=== PATIENT | male | born 1945 | race Caucasian/White ===

== ENCOUNTER 2017-08-17 16:24 | Inpatient (IN) | payer OTHER ==
[~2017-08-17] VITALS: Ht 160 cm; Wt 57.3 kg
[~2017-08-17 16:24] MED LIST changes: -ASPEC81 PO; -LPT40 PO; -LSX40 PO; -POTA10CA28 PO
[2017-08-17] MEDS ORDERED: OPTIRAY 320 IV PRN ×2 (17:00→17:15)
--- NOTE | 2017-08-17 17:30 | DIAGNOSTIC IMAGING REPORT ---
CHEST ONE VIEW PORTABLE HISTORY: 71 years-old Male EVALUATE RESPIRATORY DISTRESS.DYSPNEA acute respiratory distress COMPARISON: Chest radiograph 05/04/2014 TECHNIQUE: Portable upright AP view of the chest FINDINGS: Cardiac silhouette is mildly enlarged. Pulmonary vascular congestion is noted without overt pulmonary edema. There is no pneumothorax. Consolidative opacity of the left lung base is noted with small left pleural effusion. Linear subsegmental opacities of the left midlung suggest atelectasis. Right lung is generally clear. The bones appear grossly intact. IMPRESSION: 1. Consolidative opacities of the left lung base with small left pleural effusion are suspicious for pneumonia with parapneumonic effusion. The effusion appears mildly loculated. Follow-up recommended. 2. Cardiomegaly and pulmonary vascular congestion without overt pulmonary edema. The above report was generated using voice recognition software. It may contain grammatical, syntax or spelling errors. Electronically signed by: Gerardo Del Rosario M.D. 08/17/2017 5:28 PM Dictated Date/Time: 08/17/2017 5:26 PM
[2017-08-17 17:49] LABS: BUN/CREATININE RATIO 22.2 (10-20); CALCIUM 9.3 mg/dl (8.5-10.1); CREATININE 1.16 mg/dl (0.60-1.40); POTASSIUM 3.2 mmol/L (3.5-5.1)
[2017-08-17 17:55] LABS: HEMATOCRIT 55.7 % (42-52); MEAN CELL VOLUME 106.3 fL (80-100); MEAN CORPUSCULAR HEMOGLOBIN 36.3 pg (25-34); MEAN CORPUSCULAR HGB CONC 34.1 g/dl (32-36); RED BLOOD COUNT 5.24 M/uL (4.7-6.1); WHITE BLOOD COUNT 4.58 K/uL (4.8-10.8)
[2017-08-17 17:57] LABS: ALB/GLOB RATIO 0.7 (0.9-2)
--- NOTE | 2017-08-17 17:57 | DIAGNOSTIC IMAGING REPORT ---
L VENOUS DOPP LOWER EXT UNILAT CLINICAL HISTORY: 71 years-old Male presenting with swelling LLE. TECHNIQUE: Real-time grayscale and color and spectral Doppler ultrasound imaging of the veins of the left lower extremity was performed. Compression and augmentation were also utilized. COMPARISON: None. FINDINGS: Left: Common femoral vein: Patent. Femoral vein: Patent. Greater saphenous vein: Patent. Popliteal vein: Patent. Calf veins: Limited visualization secondary to subcutaneous edema. Other: Subcutaneous edema evidence by dilated lymphatics. Popliteal cyst noted. IMPRESSION: No evidence of deep venous thrombosis. Electronically signed by: Garret Martinez M.D. 08/17/2017 5:56 PM Dictated Date/Time: 08/17/2017 5:55 PM
[2017-08-17 18:05] LABS: MEAN PLATELET VOLUME 11.8 fL (7.4-10.4); PLATELET COUNT 97 K/uL (130-400)
[2017-08-17 18:07] LABS: ANISOCYTOSIS PRESENT; BASO % 0.7 %; BASO ABS # 0.03 K/uL (0-0.2); COMPLETE YES; EOS % 2.2 %; IG% 0.4 %; LYMPH % 15.3 %; MONO % 13.3 %; NEUT % 68.1 %
[2017-08-17 19:30] LABS: URINE APPEARANCE CLEAR (CLEAR); URINE BILIRUBIN NEG (NEG); URINE COLOR DK YELLOW; URINE EPITHELIAL CELL AUTO >30 /lpf (0-5); URINE NITRITE NEG (NEG); URINE SPECIFIC GRAVITY 1.013 (1.000-1.030); UROBILINOGEN POS (NEG)
[2017-08-17 19:35] LABS: MANUAL MICROSCOPIC REQUIRED? NO; REVIEW REQ? YES
--- NOTE | 2017-08-17 19:55 | DIAGNOSTIC IMAGING REPORT ---
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 A dose lowering technique was utilized adhering to the principles of ALARA. COMPARISON STUDY: Pelvis and right hip radiographs 08/17/2017. FINDINGS: Small left and trace right pleural effusion. Subsegmental bibasilar opacities are noted suggesting compressive atelectasis. There is no pneumoperitoneum identified. Imaged cardiac chambers are moderately to severely enlarged. There is diffusely heterogeneous appearance of the liver. The spleen, pancreas and adrenal glands are within normal limits. The gallbladder is partially collapsed. Ill-defined areas of low attenuation within the interpolar right kidney posteriorly measuring up to 6 mm are too small to characterize, however suggest cysts. No renal calculi or hydronephrosis. Ureters are unremarkable. Urinary bladder is partially collapsed. Evaluation of the pelvic structures is limited secondary to streak artifact from right hip arthroplasty. There is fusiform aneurysmal dilation and tortuosity of the abdominal aorta measuring up to 4.0 x 4.4 cm in AP and transverse dimension for a length of 6.6 cm. There is also mild anterolateral dilation of the bilateral common iliac arteries, 2.1 cm on the right and 2.0 cm on the left. No bulky adenopathy identified. Mild degree of intra-abdominal and intrapelvic ascites is noted with diffuse mesenteric edema. Ascites extends through a diaphragmatic defect adjacent to the right pericardium. There is no bowel obstruction identified. The appendix appears normal. Posterior changes are seen within small bowel of the right lower quadrant. Scattered air-fluid levels are present within several loops of nondilated ileum suggesting ileus. Moderate diffuse body wall edema. Several fat filled ventral abdominal wall hernias are noted, largest of which demonstrates diastases of 2.4 cm on image 165 series 3. Body wall edema also noted extending into the mons pubis and upper scrotal region. Bones appear intact. No suspicious lytic or blastic bony lesions identified. IMPRESSION: 1. Diffusely heterogeneous appearance of the liver with small left and trace right pleural effusions, small volume of intra-abdominal and intrapelvic ascites with moderate diffuse body wall edema. Body wall edema extends into the mons pubis region and upper scrotum without evidence of subcutaneous or deep tissue air to suggest fasciitis. 2. Fusiform aneurysmal relation of the infrarenal abdominal aorta, 4.0 x 4.4 cm for a length of 6.6 cm in craniocaudal dimension. Aneurysmal dilation also involves the bilateral common iliac arteries as above. 3. Cardiomegaly. 4. Several fat filled ventral abdominal wall hernias are noted. Electronically signed by: Gerardo Del Rosario M.D. 08/17/2017 7:54 PM Dictated Date/Time: 08/17/2017 7:44 PM
[2017-08-17] MEDS ORDERED: ASPIRIN 81 MG CHEW PO STA (19:57)
[2017-08-17 20:17] LABS: INR 1.3 (0.9-1.1); PARTIAL THROMBOPLASTIN RATIO 1.1; PROTHROMBIN TIME (PATIENT) 13.5 SECONDS (9.0-12.0)
[2017-08-17] MEDS ORDERED: POTASSIUM CHLORIDE 10 MEQ TABCR PO STA (20:19)
[2017-08-17] MEDS ORDERED: MAGNESIUM SULFATE 1 GM IV STA (20:19)
[2017-08-17] MEDS ORDERED: D5W 2 GM IV STA (20:19)
[2017-08-17] MEDS ORDERED: MAGNESIUM HYDROXIDE SUSP 30 ML UDC PO PRN (21:00)
[2017-08-17] MEDS ORDERED: FUROSEMIDE INJ 40 MG in SYRINGE 0 ML IV ONE (21:00)
[2017-08-17] MEDS ORDERED: ACETAMINOPHEN 325 MG TAB PO PRN (21:00)
[2017-08-17] MEDS ORDERED: ALUMINUM/MAGNESIUM/SIMETH (MAALOX MAX) 30 ML UDC PO PRN (21:00)
[2017-08-17] MEDS ORDERED: VANCOMYCIN INJ 1,750 MG in SODIUM CHLORIDE 0.9% 500ML 500 ML IV STA (21:16)
[2017-08-17] MEDS ORDERED: CEFTRIAXONE SOD INJ 1 GM in DEXTROSE 5% ADD-VANTAGE 50ML 50 ML IV STA (21:17)
--- NOTE | 2017-08-17 21:18 | EMERGENCY ROOM VISIT NOTE ---
History Report prepared by Marcio: Brock Hernandez Under the Supervision of: Calin LongO. First contact with patient: 16:36 Chief Complaint: EDEMA TO EXTREMITY Stated Complaint: EDEMA History of Present Illness The patient is a 71 year old male who presents to the Emergency Room with complaints of worsening penile swelling beginning two weeks ago. He was referred to the ED by Dr. Leyva with concerns of gangrene. He typically has swelling to his penis and legs, but states that his current swelling is greatly increased. Pt denies headache, change in vision, fevers, chest pain, abnormal shortness of breath, nausea, vomiting, diarrhea, pain with urination, and melena. He notes that he has a purplish discoloration to his skin due to a medication that he takes. notes that the swelling in the lower extremities is larger. Source of History: patient Onset: Two weeks ago Position: other (penis) Quality: other (swelling) Timing: worsening Associated Symptoms: No fevers, No chest pain, No SOB (abnormal), No vomiting, No diarrhea, No urinary symptoms Review of Systems See HPI for pertinent positives & negatives. A total of 10 systems reviewed and were otherwise negative. Past Medical & Surgical Medical Problems: (1) CHF (congestive heart failure) (2) DJD (degenerative joint disease) of hip Family History No pertinent family history stated. Social History Smoking Status: Current Every Day Smoker Drug Use: none Marital Status: Housing Status: lives with significant other Occupation Status: retired Current/Historical Medications Scheduled Atenolol (Atenolol), 1 TAB PO HS Furosemide (Lasix), 20 MG PO DAILY Home O2 Therapy (Oxygen), 2.5 LITER NA NIGHT Ipratropium Healy (Atrovent 0.02% Soln), 1 DOSE INH PRN Allergies Coded Allergies: NO KNOWN DRUG ALLERGIES (Unverified Allergy, Unknown, NONE, 05/04/14) Physical Exam Vital Signs Date Time Temp Pulse Resp B/P (MAP) Pulse Ox O2 Delivery O2 Flow Rate FiO2 08/17/17 20:56 60 22 123/80 89 Nasal Cannula 2.0 08/17/17 19:45 60 124/83 94 Room Air 08/17/17 18:45 62 20 123/85 92 Nasal Cannula 2.0 08/17/17 17:25 56 08/17/17 17:02 98 Nasal Cannula 3.0 08/17/17 17:02 98 Nasal Cannula 3.0 08/17/17 16:29 36.5 20 101/71 Room Air Physical Exam GENERAL: Ill appearing, no acute distress, nontoxic. Sitting up in bed. EYE EXAM: normal conjunctiva. OROPHARYNX: no exudate, no erythema, lips, buccal mucosa, and tongue normal and mucous membranes are moist NECK: supple, no nuchal rigidity, no adenopathy, non-tender LUNGS: Course bilateral bases. Normal chest wall mechanics. HEART: no murmurs, S1 normal and S2 normal ABDOMEN: abdomen normo-active bowel sounds, no masses, no rebound or guarding. Mild fullness in the lower pelvic region. : Edema of the penis and scrotum. Small ulcer on the right anterior scrotum. No surrounding erythema or induration. BACK: Back is symmetrical on inspection and there is no deformity, no midline tenderness, no CVA tenderness. SKIN: no rashes and no bruising UPPER EXTREMITIES: upper extremities are grossly normal. LOWER EXTREMITIES: Diffuse pitting edema bilaterality tracking up to abdomen, left greater than right. DPs 1/4 bilaterally. NEURO EXAM: Normal sensorium, cranial nerves II-XII grossly intact, normal speech, no gross weakness of arms, no gross weakness of legs. Medical Decision & Procedures ER Provider Diagnostic Interpretation: Radiology results as stated below per my review and the radiologist's interpretation: CHEST ONE VIEW PORTABLE FINDINGS: Cardiac silhouette is mildly enlarged. Pulmonary vascular congestion is noted without overt pulmonary edema. There is no pneumothorax. Consolidative opacity of the left lung base is noted with small left pleural effusion. Linear subsegmental opacities of the left midlung suggest atelectasis. Right lung is generally clear. The bones appear grossly intact. IMPRESSION: 1. Consolidative opacities of the left lung base with small left pleural effusion are suspicious for pneumonia with parapneumonic effusion. The effusion appears mildly loculated. Follow-up recommended. 2. Cardiomegaly and pulmonary vascular congestion without overt pulmonary edema. The above report was generated using voice recognition software. It may contain grammatical, syntax or spelling errors. Electronically signed by: Gerardo Del Rosario M.D. 08/17/2017 5:28 PM L VENOUS DOPP LOWER EXT UNILAT FINDINGS: Left: Common femoral vein: Patent. Femoral vein: Patent. Greater saphenous vein: Patent. Popliteal vein: Patent. Calf veins: Limited visualization secondary to subcutaneous edema. Other: Subcutaneous edema evidence by dilated lymphatics. Popliteal cyst noted. IMPRESSION: No evidence of deep venous thrombosis. Electronically signed by: Garret Martinez M.D. 08/17/2017 5:[address] AND P[address]VIS CT WITH IV CONTRAST FINDINGS: Small left and trace right pleural effusion. Subsegmental bibasilar opacities are noted suggesting compressive atelectasis. There is no pneumoperitoneum identified. Imaged cardiac chambers are moderately to severely enlarged. There is diffusely heterogeneous appearance of the liver. The spleen, pancreas and adrenal glands are within normal limits. The gallbladder is partially collapsed. Ill-defined areas of low attenuation within the interpolar right kidney posteriorly measuring up to 6 mm are too small to characterize, however suggest cysts. No renal calculi or hydronephrosis. Ureters are unremarkable. Urinary bladder is partially collapsed. Evaluation of the pelvic structures is limited secondary to streak artifact from right hip arthroplasty. There is fusiform aneurysmal dilation and tortuosity of the abdominal aorta measuring up to 4.0 x 4.4 cm in AP and transverse dimension for a length of 6.6 cm. There is also mild anterolateral dilation of the bilateral common iliac arteries, 2.1 cm on the right and 2.0 cm on the left. No bulky adenopathy identified. Mild degree of intra-abdominal and intrapelvic ascites is noted with diffuse mesenteric edema. Ascites extends through a diaphragmatic defect adjacent to the right pericardium. There is no bowel obstruction identified. The appendix appears normal. Posterior changes are seen within small bowel of the right lower quadrant. Scattered air-fluid levels are present within several loops of nondilated ileum suggesting ileus. Moderate diffuse body wall edema. Several fat filled ventral abdominal wall hernias are noted, largest of which demonstrates diastases of 2.4 cm on image 165 series 3. Body wall edema also noted extending into the mons pubis and upper scrotal region. Bones appear intact. No suspicious lytic or blastic bony lesions identified. IMPRESSION: 1. Diffusely heterogeneous appearance of the liver with small left and trace right pleural effusions, small volume of intra-abdominal and intrapelvic ascites with moderate diffuse body wall edema. Body wall edema extends into the mons pubis region and upper scrotum without evidence of subcutaneous or deep tissue air to suggest fasciitis. 2. Fusiform aneurysmal relation of the infrarenal abdominal aorta, 4.0 x 4.4 cm for a length of 6.6 cm in craniocaudal dimension. Aneurysmal dilation also involves the bilateral common iliac arteries as above. 3. Cardiomegaly. 4. Several fat filled ventral abdominal wall hernias are noted. Electronically signed by: Gerardo Del Rosario M.D. 08/17/2017 7:54 PM Laboratory Results 08/17/17 17:05 Red Blood Count 5.24, Mean Corpuscular Volume 106.3, Mean Corpuscular Hemoglobin 36.3, Mean Corpuscular Hemoglobin Concent 34.1, Mean Platelet Volume 11.8, Neutrophils (%) (Auto) 68.1, Lymphocytes (%) (Auto) 15.3, Monocytes (%) ( Auto) 13.3, Eosinophils (%) (Auto) 2.2, Basophils (%) (Auto) 0.7, Neutrophils # (Auto) 3.12, Lymphocytes # (Auto) 0.70, Monocytes # (Auto) 0.61, Eosinophils # ( Auto) 0.10, Basophils # (Auto) 0.03 08/17/17 17:05 Test 08/17/17 17:05 08/17/17 19:07 08/17/17 19:55 White Blood Count 4.58 K/uL (4.8-10.8) Red Blood Count 5.24 M/uL (4.7-6.1) Hemoglobin 19.0 g/dL (14.0-18.0) Hematocrit 55.7 % (42-52) Mean Corpuscular Volume 106.3 fL (80-100) Mean Corpuscular Hemoglobin 36.3 pg (25-34) Mean Corpuscular Hemoglobin Concent 34.1 g/dl (32-36) Platelet Count 97 K/uL (130-400) Mean Platelet Volume 11.8 fL (7.4-10.4) Neutrophils (%) (Auto) 68.1 % Lymphocytes (%) (Auto) 15.3 % Monocytes (%) (Auto) 13.3 % Eosinophils (%) (Auto) 2.2 % Basophils (%) (Auto) 0.7 % Neutrophils # (Auto) 3.12 K/uL (1.4-6.5) Lymphocytes # (Auto) 0.70 K/uL (1.2-3.4) Monocytes # (Auto) 0.61 K/uL (0.11-0.59) Eosinophils # (Auto) 0.10 K/uL (0-0.5) Basophils # (Auto) 0.03 K/uL (0-0.2) RDW Standard Deviation 67.2 fL (36.4-46.3) RDW Coefficient of Variation 17.4 % (11.5-14.5) Immature Granulocyte % (Auto) 0.4 % Immature Granulocyte # (Auto) 0.02 K/uL (0.00-0.02) Anisocytosis PRESENT Anion Gap 7.0 mmol/L (3-11) Est Creatinine Clear Calc Drug Dose 45.6 ml/min Estimated GFR () 72.0 Estimated GFR (Non- 62.1 BUN/Creatinine Ratio 22.2 (10-20) Calcium Level 9.3 mg/dl (8.5-10.1) Total Bilirubin 3.6 mg/dl (0.2-1) Aspartate Amino Transf (AST/SGOT) 73 U/L (15-37) Alanine Aminotransferase (ALT/SGPT) 46 U/L (12-78) Alkaline Phosphatase 276 U/L (45-117) Troponin I 0.093 ng/ml (0-0.045) Pro-B-Type Natriuretic Peptide 28391 pg/ml (0-900) Total Protein 7.7 gm/dl (6.4-8.2) Albumin 3.2 gm/dl (3.4-5.0) Globulin 4.5 gm/dl (2.5-4.0) Albumin/Globulin Ratio 0.7 (0.9-2) Chemistry Specimen Hemolysis Urine Color DK YELLOW Urine Appearance CLEAR (CLEAR) Urine pH 6.0 (4.5-7.5) Urine Specific [place] 1.013 (1.000-1.030) Urine Protein 1+ (NEG) Urine Glucose (UA) NEG (NEG) Urine Ketones NEG (NEG) Urine Occult Blood 1+ (NEG) Urine Nitrite NEG (NEG) Urine Bilirubin NEG (NEG) Urine Urobilinogen POS (NEG) Urine Leukocyte Esterase NEG (NEG) Urine WBC (Auto) 1-5 /hpf (0-5) Urine RBC (Auto) 0-4 /hpf (0-4) Urine Hyaline Casts (Auto) 5-10 /lpf (0-5) Urine Epithelial Cells (Auto) >30 /lpf (0-5) Urine Bacteria (Auto) NEG (NEG) Urine Renal Epithelial Cells 0-5 /lpf (0-5) Prothrombin Time 13.5 SECONDS (9.0-12.0) Prothromb Time International Ratio 1.3 (0.9-1.1) Activated Partial Thromboplast Time 28.2 SECONDS (21.0-31.0) Partial Thromboplastin Ratio 1.1 Laboratory results per my review. ECG Indication: other (edema) Rate (beats per minute): 55 Rhythm: sinus bradycardia Findings: RBBB, T-wave inversion (lateral and inferior), other (RAD) Comparison ECG Date: May 04, 2014 Change: T-wave inversions are new. ED Course ED COURSE: Vital signs were reviewed and appeared normal. The patients medical record was reviewed The above diagnostic studies were performed and reviewed. ED treatments and interventions as stated above. 1640: The patient was evaluated in room A4B. A complete history and physical examination was performed. 1956: Ordered Aspirin Chew 324 mg PO. 1954: Upon reevaluation, the patient is resting comfortably. I discussed my findings with the patient and he understands and agrees with the treatment plan. Based on the patients age, coexisting illnesses, exam and lab findings the decision to treat as an inpatient was made. The patient remained stable while under my care. The patient will be evaluated for further management. Medical Decision Differential diagnoses includes but is not limited to pneumonia, bronchitis, COPD/Asthma exacerbation, pneumothorax, pulmonary embolism, congestive heart failure, acute coronary syndrome. 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 On evaluation he has diffuse pitting edema in the lower extremities. Nothing to suggest an infection in his groin. Lungs coarse bilaterally. Chest x-ray supports pulmonary edema. BMP was elevated. Troponin was elevated. New flipped T waves in the septal and anterior and lateral. Updated patient regards to his findings. Recommended admission patient was agreeable. Discussed with internal medicine patient was admitted for CHF with an elevated troponin and EKG changes without new shortness of breath or any chest pain. Medication Reconcilliation Current Medication List: was personally reviewed by me Blood Pressure Screening Patient's blood pressure: Normal blood pressure Blood pressure disposition: Did not require urgent referral Consults Time Called: 1953 Consulting Physician: Dr. Shoaib Bar Returned Call: 1957 I reviewed the patient's case with Dr. Cramer. Jules will evaluate the patient for further management. Impression Primary Impression: CHF (congestive heart failure) Additional Impressions: Acute electrocardiogram changes Elevated troponin Scribe Attestation The scribe's documentation has been prepared under my direction and personally reviewed by me in its entirety. I confirm that the note above accurately reflects all work, treatment, procedures, and medical decision making performed by me. Departure Information Dispostion Being Evaluated By Hospitalist Referrals Ralph Leyva M.D.([facility]) (PCP) Patient Instructions My [facility] Problem Qualifiers Primary Impression: CHF (congestive heart failure) Congestive heart failure type: unspecified congestive heart failure type Congestive heart failure chronicity: unspecified congestive heart failure chronicity Qualified Codes: I50.9 - Heart failure, unspecified
[2017-08-17] MEDS ORDERED: VANCOMYCIN CONSULT ACTIVE PRN (21:30)
[2017-08-17] MEDS ORDERED: FUROSEMIDE 40 MG/4 ML VIAL IV STA (21:30)
--- NOTE | 2017-08-17 21:54 | History and Physical ---
History & Physical Date & Time of Service: Aug 17, 2017 at 21:29 Chief Complaint: EDEMA Primary Care Physician: Ralph Leyva M.D.(ASTER) History of Present Illness Source: patient, family, clinic records, hospital records This is a 71 year old male with a PMH of severe COPD and chronic respiratory failure on 2L of O2, tobacco use disorder, right sided heart failure, cor pulmonale, AAA presents with significant lower extremity swelling as well as scrotal and penile swelling. He states that the swelling started worsening about 2 weeks ago and his scrotum became painful today. Was seen by PCP today in the office - was told to come to the hospital to rule out Raymond's gangrene. States that his only symptom in the past two weeks besides his lower extremity swelling was shortness of breath with exertion. He uses 2L of O2 chronically and still smokes. Denies fevers/chills, denies nausea/vomiting. Past Medical/Surgical History Medical Problems: (1) CHF (congestive heart failure) Status: Chronic (2) DJD (degenerative joint disease) of hip Status: Resolved Social History Smoking Status: Current Every Day Smoker Drug Use: none Marital Status: Occupational Status: retired Multi-Drug Resistant Organisms History of MDRO: No Allergies Coded Allergies: NO KNOWN DRUG ALLERGIES (Unverified Allergy, Unknown, NONE, 05/04/14) Home Medications Scheduled Atenolol (Atenolol), 1 TAB PO HS Furosemide (Lasix), 20 MG PO DAILY Home O2 Therapy (Oxygen), 2.5 LITER NA NIGHT Ipratropium [place] (Atrovent 0.02% Soln), 1 DOSE INH PRN Review of Systems Constitutional: No fever, No chills, No sweats, No weight loss, No weakness, No fatigue Eyes: No worsening of vision ENT: + hearing loss (chronic) Respiratory: + cough, + wheezing, + shortness of breath, + dyspnea on exertion , No sputum, No dyspnea at rest, No hemoptysis Cardiovascular: + edema, No chest pain, No orthopnea, No palpitations Abdomen: No pain, No nausea, No vomiting, No diarrhea, No constipation Musculoskeletal: + swelling, No joint pain, No muscle pain Genitourinary - Male: + lesions (ulcer), No hematuria, No dysuria, No urinary frequency, No urinary urgency, No urinary hesitancy, No urinary retention, No urinary incontinence, No penile discharge, No impotence Neurologic: No memory loss, No paralysis, No weakness, No numbness/tingling, No vertigo, No balance problems Psychiatric: No depression symptoms, No anxiety, No insomnia Endocrine: No fatigue Hematologic / Lymphatic: No abnormal bleeding/bruising Integumentary: No rash Allergic / Immunologic: No environmental allergies, No seasonal allergies Physical Exam Vital Signs Date Time Temp Pulse Resp B/P (MAP) Pulse Ox O2 Delivery O2 Flow Rate FiO2 08/17/17 20:56 60 22 123/80 89 Nasal Cannula 2.0 08/17/17 19:45 60 124/83 94 Room Air 08/17/17 18:45 62 20 123/85 92 Nasal Cannula 2.0 08/17/17 17:25 56 08/17/17 17:02 98 Nasal Cannula 3.0 08/17/17 17:02 98 Nasal Cannula 3.0 08/17/17 16:29 36.5 20 101/71 Room Air General Appearance: no apparent distress Head: normocephalic, atraumatic Eyes: EOMI ENT: + pertinent finding (hard of hearing) Neck: supple Respiratory/Chest: no respiratory distress, no accessory muscle use, + decreased breath sounds, + wheezing (diffuse end expiratory wheezing) Cardiovascular: regular rate, rhythm, no murmur Abdomen/GI: normal bowel sounds, non tender, soft Genitourinary - Male: + pertinent finding (+swelling of the penis and scrotum; ulceration on the scrotum with redness and warm to touch) Extremities/Musculoskelatal: no calf tenderness, normal capillary refill, + swelling (+3 pitting edema b/l LE), + pertinent finding 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, no motor/sensory deficits, alert, normal mood/affect, oriented x 3 Skin: normal color Lymphatic: no adenopathy Diagnostics Laboratory Results Results Past 24 Hours Test 08/17/17 17:05 08/17/17 19:07 08/17/17 19:55 Range/Units White Blood Count 4.58 4.8-10.8 K/uL Red Blood Count 5.24 4.7-6.1 M/uL Hemoglobin 19.0 14.0-18.0 g/dL Hematocrit 55.7 42-52 % Mean Corpuscular Volume 106.3 80-100 fL Mean Corpuscular Hemoglobin 36.3 25-34 pg Mean Corpuscular Hemoglobin Concent 34.1 32-36 g/dl Platelet Count 97 130-400 K/uL Mean Platelet Volume 11.8 7.4-10.4 fL Neutrophils (%) (Auto) 68.1 % Lymphocytes (%) (Auto) 15.3 % Monocytes (%) (Auto) 13.3 % Eosinophils (%) (Auto) 2.2 % Basophils (%) (Auto) 0.7 % Neutrophils # (Auto) 3.12 1.4-6.5 K/uL Lymphocytes # (Auto) 0.70 1.2-3.4 K/uL Monocytes # (Auto) 0.61 0.11-0.59 K/uL Eosinophils # (Auto) 0.10 0-0.5 K/uL Basophils # (Auto) 0.03 0-0.2 K/uL RDW Standard Deviation 67.2 36.4-46.3 fL RDW Coefficient of Variation 17.4 11.5-14.5 % Immature Granulocyte % (Auto) 0.4 % Immature Granulocyte # (Auto) 0.02 0.00-0.02 K/uL Anisocytosis PRESENT Sodium Level 138 136-145 mmol/L Potassium Level 3.2 3.5-5.1 mmol/L Chloride Level 90 98-107 mmol/L Carbon Dioxide Level 40 21-32 mmol/L Anion Gap 7.0 3-11 mmol/L Blood Urea Nitrogen 26 7-18 mg/dl Creatinine 1.16 0.60-1.40 mg/dl Est Creatinine Clear Calc Drug Dose 45.6 ml/min Estimated GFR () 72.0 Estimated GFR (Non- 62.1 BUN/Creatinine Ratio 22.2 10-20 Random Glucose 90 70-99 mg/dl Calcium Level 9.3 8.5-10.1 mg/dl Total Bilirubin 3.6 0.2-1 mg/dl Aspartate Amino Transf (AST/SGOT) 73 15-37 U/L Alanine Aminotransferase (ALT/SGPT) 46 12-78 U/L Alkaline Phosphatase 276 45-117 U/L Troponin I 0.093 0-0.045 ng/ml Pro-B-Type Natriuretic Peptide 58129 0-900 pg/ml Total Protein 7.7 6.4-8.2 gm/dl Albumin 3.2 3.4-5.0 gm/dl Globulin 4.5 2.5-4.0 gm/dl Albumin/Globulin Ratio 0.7 0.9-2 Chemistry Specimen Hemolysis Urine Color DK YELLOW Urine Appearance CLEAR CLEAR Urine pH 6.0 4.5-7.5 Urine Specific [place] 1.013 1.000-1.030 Urine Protein 1+ NEG Urine Glucose (UA) NEG NEG Urine Ketones NEG NEG Urine Occult Blood 1+ NEG Urine Nitrite NEG NEG Urine Bilirubin NEG NEG Urine Urobilinogen POS NEG Urine Leukocyte Esterase NEG NEG Urine WBC (Auto) 1-5 0-5 /hpf Urine RBC (Auto) 0-4 0-4 /hpf Urine Hyaline Casts (Auto) 5-10 0-5 /lpf Urine Epithelial Cells (Auto) >30 0-5 /lpf Urine Bacteria (Auto) NEG NEG Urine Renal Epithelial Cells 0-5 0-5 /lpf Prothrombin Time 13.5 9.0-12.0 SECONDS Prothromb Time International Ratio 1.3 0.9-1.1 Activated Partial Thromboplast Time 28.2 21.0-31.0 SECONDS Partial Thromboplastin Ratio 1.1 Diagnostic Radiology CHEST ONE VIEW PORTABLE HISTORY: 71 years-old Male EVALUATE RESPIRATORY DISTRESS.DYSPNEA acute respiratory distress COMPARISON: Chest radiograph 05/04/2014 TECHNIQUE: Portable upright AP view of the chest FINDINGS: Cardiac silhouette is mildly enlarged. Pulmonary vascular congestion is noted without overt pulmonary edema. There is no pneumothorax. Consolidative opacity of the left lung base is noted with small left pleural effusion. Linear subsegmental opacities of the left midlung suggest atelectasis. Right lung is generally clear. The bones appear grossly intact. IMPRESSION: 1. Consolidative opacities of the left lung base with small left pleural effusion are suspicious for pneumonia with parapneumonic effusion. The effusion appears mildly loculated. Follow-up recommended. 2. Cardiomegaly and pulmonary vascular congestion without overt pulmonary edema. L VENOUS DOPP LOWER EXT UNILAT CLINICAL HISTORY: 71 years-old Male presenting with swelling LLE. TECHNIQUE: Real-time grayscale and color and spectral Doppler ultrasound imaging of the veins of the left lower extremity was performed. Compression and augmentation were also utilized. COMPARISON: None. FINDINGS: Left: Common femoral vein: Patent. Femoral vein: Patent. Greater saphenous vein: Patent. Popliteal vein: Patent. Calf veins: Limited visualization secondary to subcutaneous edema. Other: Subcutaneous edema evidence by dilated lymphatics. Popliteal cyst noted. IMPRESSION: No evidence of deep venous thrombosis. 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 A dose lowering technique was utilized adhering to the principles of ALARA. COMPARISON STUDY: Pelvis and right hip radiographs 08/17/2017. FINDINGS: Small left and trace right pleural effusion. Subsegmental bibasilar opacities are noted suggesting compressive atelectasis. There is no pneumoperitoneum identified. Imaged cardiac chambers are moderately to severely enlarged. There is diffusely heterogeneous appearance of the liver. The spleen, pancreas and adrenal glands are within normal limits. The gallbladder is partially collapsed. Ill-defined areas of low attenuation within the interpolar right kidney posteriorly measuring up to 6 mm are too small to characterize, however suggest cysts. No renal calculi or hydronephrosis. Ureters are unremarkable. Urinary bladder is partially collapsed. Evaluation of the pelvic structures is limited secondary to streak artifact from right hip arthroplasty. There is fusiform aneurysmal dilation and tortuosity of the abdominal aorta measuring up to 4.0 x 4.4 cm in AP and transverse dimension for a length of 6.6 cm. There is also mild anterolateral dilation of the bilateral common iliac arteries, 2.1 cm on the right and 2.0 cm on the left. No bulky adenopathy identified. Mild degree of intra-abdominal and intrapelvic ascites is noted with diffuse mesenteric edema. Ascites extends through a diaphragmatic defect adjacent to the right pericardium. There is no bowel obstruction identified. The appendix appears normal. Posterior changes are seen within small bowel of the right lower quadrant. Scattered air-fluid levels are present within several loops of nondilated ileum suggesting ileus. Moderate diffuse body wall edema. Several fat filled ventral abdominal wall hernias are noted, largest of which demonstrates diastases of 2.4 cm on image 165 series 3. Body wall edema also noted extending into the mons pubis and upper scrotal region. Bones appear intact. No suspicious lytic or blastic bony lesions identified. IMPRESSION: 1. Diffusely heterogeneous appearance of the liver with small left and trace right pleural effusions, small volume of intra-abdominal and intrapelvic ascites with moderate diffuse body wall edema. Body wall edema extends into the mons pubis region and upper scrotum without evidence of subcutaneous or deep tissue air to suggest fasciitis. 2. Fusiform aneurysmal relation of the infrarenal abdominal aorta, 4.0 x 4.4 cm for a length of 6.6 cm in craniocaudal dimension. Aneurysmal dilation also involves the bilateral common iliac arteries as above. 3. Cardiomegaly. 4. Several fat filled ventral abdominal wall hernias are noted. EKG Sinus bradycardia with 1st degree A-V block Possible Left atrial enlargement Right bundle branch block Left posterior fascicular block Bifascicular block Anteroseptal infarct , age undetermined Marked T-wave abnormality, consider inferolateral ischemia Abnormal ECG When compared with ECG of 04-MAY-2014 11:38, Left posterior fascicular block is now Present ... Impression Assessment and Plan This is a 71 year old male with a PMH of severe COPD and chronic respiratory failure on 2L of O2, tobacco use disorder, right sided heart failure, cor pulmonale, AAA presents with significant lower extremity swelling Right Sided Heart Failure Cor Pulmonale patient with cor pulmonale due to significant lung disease uses Lasix 40mg daily at home presented with worsening swelling of the lower extremities, scrotum and penis will give IV Lasix replete K and Mg monitor in tele check an updated echo consult cardiology Cellulitis of the Scrotum there is ulceration on the scrotum, warm to touch, likely infected will start Rocephin and Vancomycin Bifascicular Block Prolonged Qt interval there is a new bifascicular block will replace K and Mg monitor electrolytes with Lasix dose avoid Qt prolonging agents when possible Severe COPD Chronic Respiratory Failure patient presents with shortness of breath, a chronic issue, possibly acute on chronic currently on 4L; will monitor with Lasix use trying to avoid prednisone to avoid worsening swelling added duonebs scheduled and PRN Tobacco Use Disorder counseled on cessation added nicotine patch DVT ppx subq heparin FULL CODE VTE Prophylaxis VTE Risk Assessment Done? Y/N: Yes Risk Level: Moderate
[2017-08-17 23:34] VITALS: BP 123/73; PULSE 60; TEMP 37.2; O2SAT 93; Ht 160 cm; Wt 57.3 kg
[2017-08-18] VITALS (9 sets, daily range): BP systolic 101–121; BP diastolic 57–74; PULSE 52–84; TEMP 36.5–37; O2SAT 91–97
[2017-08-18] MEDS ORDERED: PNEUMOCOCCAL POLYSACCHARIDES 25 MCG/0.5 ML VIAL/SYR IM. ONE (01:30)
[2017-08-18] MEDS ORDERED: PNEUMOCOCCAL ADMINISTRATION CHARGE ONE (01:30)
[2017-08-18 02:53] LABS: HEMATOCRIT 50.5 % (42-52); MEAN CORPUSCULAR HEMOGLOBIN 34.5 pg (25-34); MEAN CORPUSCULAR HGB CONC 32.3 g/dl (32-36); MEAN PLATELET VOLUME 11.8 fL (7.4-10.4); PLATELET COUNT 100 K/uL (130-400); RED BLOOD COUNT 4.72 M/uL (4.7-6.1)
[2017-08-18 03:32] LABS: BUN/CREATININE RATIO 23.2 (10-20); CALCIUM 8.3 mg/dl (8.5-10.1); CREATININE 1.18 mg/dl (0.60-1.40); MAGNESIUM 2.8 mg/dl (1.8-2.4); POTASSIUM 3.5 mmol/L (3.5-5.1)
[2017-08-18] MEDS: HEPARIN SOD 5000 UNIT/0.5 ML CARP SQ SCH ×3 (05:59→22:00)
[2017-08-18] MEDS: ALBUT/IPRATROP 3MG/0.5MG NEB 3 ML VIAL INH SCH ×4 (07:12→19:10)
[2017-08-18] MEDS: NICOTINE 14 MG/24 HR TDSY TD SCH (08:15)
[2017-08-18] MEDS: ATORVASTATIN 40 MG TAB PO SCH (08:15)
--- NOTE | 2017-08-18 09:01 | ECHOCARDIOGRAM REPORT ---
*NOTICE TO RECEIVING DEMOCRAT AGENCY This information is strictly Confidential and protected under [place] law. [place] law prohibits you from making any further disclosure of this information unless further disclosure is expressly permitted by the written consent of the person to whom it pertains or is authorized by law. A general authorization for the release of medical or other information is not sufficient for this purpose. Hospital accepts no responsibility if the information is made available to any other person, INCLUDING THE PATIENT. Interpretation Summary * Name: BEATRICE JARRELL Study Date: 08/18/2017 07:23 AM BP: 103/64 mmHg * Patient Location: C.2E\[id number]\E202\S\1 HR: 52 * : 1945 (M/d/yyyy) Gender: Male Height: 63 in * Age: 71 yrs Ethnicity: CA Weight: 146 lb * Ordering Physician: Norm Bonds * Performed By: Carleen Betancourt RDCS * * Reason For Study: CHF * BSA: 1.7 m2 * -- Conclusions -- * Small LV chamber size with severe concentric LVH. * D shaped septum consistent with significant RV pressure/volume overload. * Hyperdynamic LV systolic function, EF >70%. * No segmental left ventricular wall motion abnormalities are noted. * Grade I diastolic dysfunction. * The right ventricle is severely dilated. * The right ventricular systolic function is moderately reduced. * Moderate tricuspid regurgitation. * Severe right atrial enlargement. * Pulmonary hypertension is present with a PASP of 60 mmHg. Procedure Details * The study was technically limited. * The study was technically difficult. * There were technical limitations due to patient'sbody habitus * PLAX \T\ PSAX views were obtained in the apical position. Apical Pictures were obtained by having patient on right side and scanning on his back. Left Ventricle * The left ventricular cavity is small. * There is severe concentric left ventricular hypertrophy. * Ejection Fraction = >70 %. * The left ventricle is hyperdynamic. * No segmental left ventricular wall motion abnormalities are noted. * Flattened septum is consistent with RV pressure/volume overload. Right Ventricle * The right ventricle is severely dilated. * The right ventricular systolic function is moderately reduced. Atria * The left atrium is mildly dilated. * The right atrium is severely dilated. * No ASD detected; PFO is not assessed. Mitral Valve * The mitral valve is normal in structure and function. Tricuspid Valve * The tricuspid valve anatomy is normal. * There is no tricuspid stenosis. * There is moderate tricuspid regurgitation. Aortic Valve * The aortic valve is normal in structure and function. Pulmonic Valve * The pulmonary valve is not well seen, but the Doppler examination is normal without significant regurgitation or stenosis. Great Vessels * The aortic root is normal size. Pericardium/Pleural * There is no pericardial effusion. Great Vessels * Dilated inferior vena cava with reduced collapsability with sniff indicates an elevated right atrial pressure of 15 mmHg Left Ventricular Diastolic Function * Grade I diastolic dysfunction, (abnormal relaxation pattern). MMode 2D Measurements and Calculations IVSd 1.9 cm IVSs 1.6 cm LVIDd 2.8 cm LVIDs 1.3 cm LVPWd 1.6 cm LVPWs 2.6 cm IVS/LVPW 1.2 FS 53.5 % EDV(Teich) 29.8 ml ESV(Teich) 4.2 ml EF(Teich) 85.8 % EDV(cubed) 22.2 ml ESV(cubed) 2.2 ml EF(cubed) 89.9 % % IVS thick -13.93 % % LVPW thick 64.9 % LV mass(C)d 186.7 grams LV mass(C)dI 110.4 grams/m\S\2 LV mass(C)s 138.9 grams LV mass(C)sI 82.1 grams/m\S\2 SV(Teich) 25.6 ml SI(Teich) 15.1 ml/m\S\2 SV(cubed) 20.0 ml SI(cubed) 11.8 ml/m\S\2 ACS 1.6 cm LA dimension 4.0 cm asc Aorta Diam 3.2 cm LVOT diam 2.2 cm LVOT area 3.8 cm\S\2 LVAd ap4 25.0 cm\S\2 LVLd ap4 9.0 cm EDV(MOD-sp4) 55.3 ml EDV(sp4-el) 58.7 ml LVAs ap4 10.9 cm\S\2 LVLs ap4 8.1 cm ESV(MOD-sp4) 11.9 ml ESV(sp4-el) 12.4 ml EF(MOD-sp4) 78.5 % EF(sp4-el) 78.8 % LVAd ap2 15.5 cm\S\2 LVLd ap2 6.1 cm EDV(MOD-sp2) 32.4 ml EDV(sp2-el) 33.4 ml LVAs ap2 6.5 cm\S\2 LVLs ap2 4.8 cm ESV(MOD-sp2) 7.8 ml ESV(sp2-el) 7.6 ml EF(MOD-sp2) 75.9 % EF(sp2-el) 77.3 % LVLd %diff -48.50 % EDV(MOD-bp) 52.2 ml LVLs %diff -68.68 % ESV(MOD-bp) 12.0 ml EF(MOD-bp) 77.0 % SV(MOD-sp4) 43.5 ml SI(MOD-sp4) 25.7 ml/m\S\2 SV(MOD-sp2) 24.6 ml SI(MOD-sp2) 14.6 ml/m\S\2 SV(MOD-bp) 40.2 ml SI(MOD-bp) 23.7 ml/m\S\2 SV(sp4-el) 46.2 ml SI(sp4-el) 27.3 ml/m\S\2 SV(sp2-el) 25.8 ml SI(sp2-el) 15.3 ml/m\S\2 Doppler Measurements and Calculations MV E max mariajose 49.1 cm/sec MV A max mariajose 81.9 cm/sec MV E/A 0.60 MV dec time 0.29 sec Ao V2 max 130.3 cm/sec Ao max PG 6.8 mmHg Ao max PG (full) 5.3 mmHg SHEA(V,A) 1.8 cm\S\2 SHEA(V,D) 1.8 cm\S\2 LV V1 max PG 1.5 mmHg LV V1 max 61.5 cm/sec PA V2 max 39.9 cm/sec PA max PG 0.64 mmHg PI end-d mariajose 116.2 cm/sec TR max mariajose 283.3 cm/sec
--- NOTE | 2017-08-18 09:40 | Pharmacy Progress Note ---
Pharmacy Abx Initial Consult Date of Service Aug 18, 2017. Pharmacy Dosing Scope Date of Consult: 08/17/17 Consultation requested by: Dr. Bonds Pharmacy is consulted to initiate Vancomycin IV dosing therapy, order appropriate labs and adjust drug dose/frequency. Subjective The patient is a 71 year old male admitted on Aug 17, 2017 at 21:08 with lower extremity swelling as well as scrotal and penile swelling, began 2 weeks ago, became painful today. Pt seen by PCP today and referred to hospital to rule out Raymond's gangrene. PMH severe COPD and chronic respiratory failure on 2L of O2 at home, tobacco use disorder, right sided heart failure, cor pulmonale, AAA. Objective Height (Feet): 5 Height (Inches): 3.00 Weight (Kilograms): 65.800 Vital Signs (Past 12Hrs) Vital Signs Past 12 Hours Date Time Temp Pulse Resp B/P (MAP) Pulse Ox O2 Delivery O2 Flow Rate FiO2 08/18/17 07:14 52 18 91 Nasal Cannula 4.0 08/18/17 07:10 36.6 54 20 103/64 (77) 92 Nasal Cannula 4.0 08/18/17 04:45 36.5 55 22 102/57 (72) 94 Nasal Cannula 4.0 08/18/17 04:00 Nasal Cannula 4.0 08/17/17 23:34 37.2 60 15 123/73 93 Nasal Cannula 4.0 08/17/17 22:16 63 20 112/70 90 Nasal Cannula 5.0 Lab Results (24Hrs) Last 24 Hours Test 08/17/17 17:05 08/17/17 19:07 08/17/17 19:55 08/18/17 02:39 White Blood Count 4.58 K/uL 3.50 K/uL Red Blood Count 5.24 M/uL 4.72 M/uL Hemoglobin 19.0 g/dL 16.3 g/dL Hematocrit 55.7 % 50.5 % Mean Corpuscular Volume 106.3 fL 107.0 fL Mean Corpuscular Hemoglobin 36.3 pg 34.5 pg Mean Corpuscular Hemoglobin Concent 34.1 g/dl 32.3 g/dl Platelet Count 97 K/uL 100 K/uL Mean Platelet Volume 11.8 fL 11.8 fL Neutrophils (%) (Auto) 68.1 % Lymphocytes (%) (Auto) 15.3 % Monocytes (%) (Auto) 13.3 % Eosinophils (%) (Auto) 2.2 % Basophils (%) (Auto) 0.7 % Neutrophils # (Auto) 3.12 K/uL Lymphocytes # (Auto) 0.70 K/uL Monocytes # (Auto) 0.61 K/uL Eosinophils # (Auto) 0.10 K/uL Basophils # (Auto) 0.03 K/uL RDW Standard Deviation 67.2 fL 67.8 fL RDW Coefficient of Variation 17.4 % 17.4 % Immature Granulocyte % (Auto) 0.4 % Immature Granulocyte # (Auto) 0.02 K/uL Anisocytosis PRESENT Sodium Level 138 mmol/L 141 mmol/L Potassium Level 3.2 mmol/L 3.5 mmol/L Chloride Level 90 mmol/L 93 mmol/L Carbon Dioxide Level 40 mmol/L 44 mmol/L Anion Gap 7.0 mmol/L 4.0 mmol/L Blood Urea Nitrogen 26 mg/dl 27 mg/dl Creatinine 1.16 mg/dl 1.18 mg/dl Est Creatinine Clear Calc Drug Dose 45.6 ml/min 44.9 ml/min Estimated GFR () 72.0 70.5 Estimated GFR (Non- 62.1 60.9 BUN/Creatinine Ratio 22.2 23.2 Random Glucose 90 mg/dl 170 mg/dl Calcium Level 9.3 mg/dl 8.3 mg/dl Magnesium Level mg/dl 2.8 mg/dl Total Bilirubin 3.6 mg/dl Aspartate Amino Transf (AST/SGOT) 73 U/L Alanine Aminotransferase (ALT/SGPT) 46 U/L Alkaline Phosphatase 276 U/L Troponin I 0.093 ng/ml 0.090 ng/ml Pro-B-Type Natriuretic Peptide 29892 pg/ml Total Protein 7.7 gm/dl Albumin 3.2 gm/dl Globulin 4.5 gm/dl Albumin/Globulin Ratio 0.7 Chemistry Specimen Hemolysis Urine Color DK YELLOW Urine Appearance CLEAR Urine pH 6.0 Urine Specific [place] 1.013 Urine Protein 1+ Urine Glucose (UA) NEG Urine Ketones NEG Urine Occult Blood 1+ Urine Nitrite NEG Urine Bilirubin NEG Urine Urobilinogen POS Urine Leukocyte Esterase NEG Urine WBC (Auto) 1-5 /hpf Urine RBC (Auto) 0-4 /hpf Urine Hyaline Casts (Auto) 5-10 /lpf Urine Epithelial Cells (Auto) >30 /lpf Urine Bacteria (Auto) NEG Urine Renal Epithelial Cells 0-5 /lpf Prothrombin Time 13.5 SECONDS Prothromb Time International Ratio 1.3 Activated Partial Thromboplast Time 28.2 SECONDS Partial Thromboplastin Ratio 1.1 Total Creatine Kinase 227 U/L Creatine Kinase MB 4.5 ng/ml Creatine Kinase MB Ratio 2.0 Assessment & Plan Assessment 71 year old male admitted with lower extremity swelling and pain, including scrotum and penis. Possible cellulitis, gangrene? Chronic COPD on home O2, possible pneumonia? Plan Vancomycin IV for treatment of cellulitis, possible gangrene lower extremity, and possible pneumonia. Vancomycin IV * Loading dose: 1750 mg (26.3 mg/kg) yesterday at 2200 * Maintenance dose: 1000 mg IV (15 mg/kg) every 18 hours * Estimated pharmacokinetic parameters: T1/2 = 17hrs, Manuel = 0.041/hr, Vd = 0.7 L/kg * Goal trough level for cellulitis/gangrene and possible pneumonia: 15 to 20 mcg /mL * Trough level ordered for 08/20/17 prior to 0400 dose, this level will be drawn after patient has received 3 total doses of IV Vancomycin * This dosing interval is close to patient's half life which is more aggressive dosing, so we may need to increase dosing interval after the first trough is evaluated and patient is therapeutic Pharmacy will continue to follow and will adjust dose/frequency as necessary. Thank you.
[2017-08-18] MEDS ORDERED: FUROSEMIDE INJ 40 MG in SYRINGE 0 ML IV ONE (10:00)
[2017-08-18] MEDS ORDERED: POTASSIUM CHLORIDE 10 MEQ TABCR PO ONE (10:00)
--- NOTE | 2017-08-18 10:05 | CARDIOLOGY CONSULTATION ---
DATE OF CONSULTATION: 08/18/2017 CONSULTATION REQUESTED BY: Norm Bonds DO REASON FOR CONSULTATION: Right-sided heart failure. HISTORY OF PRESENT ILLNESS: Mr. Yun is a very pleasant 71-year-old gentleman who has never been seen by a body mechanic apprentice before. He presented to [facility] from his primary care physician's office on 08/17/2017 after presenting with a complaint of scrotal edema. The patient states that for the last 3 weeks or so, he started noticing that his scrotum, penis and lower extremities have started to swell. He states it does hurt is just they have all become swollen. He has been compliant with his Lasix which he has been on for a number of years but as the swelling progressed, he decided to see his family physician. He was seen by Dr. Leyva on the who discussed the case with Dr. 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 In the Emergency Department, he was found to have significant peripheral edema. He was given a dose of IV Lasix and he was admitted to telemetry. Overnight the patient states he has not seen much change and otherwise he feels well. He denies experiencing any chest pain, shortness of breath, palpitations, lightheadedness, dizziness or syncope. PAST SURGICAL HISTORY: 1. Hernia repair. 2. Total hip replacement. 3. Spontaneous intestine rupture status post repair. MEDICAL ILLNESSES: 1. Severe emphysematous COPD. 2. Continued tobacco abuse. 3. Hearing loss. 4. History of asbestos exposure. 5. Chronic hypoxemia. FAMILY HISTORY: Noncontributory. SOCIAL HISTORY: The patient is a lifelong smoker. He continues to smoke. Denies any alcohol or recreational drug use. He is and lives at home with his . He is retired from the railroad. REVIEW OF SYSTEMS: As per HPI, all other review of systems reviewed and negative at this time. ALLERGIES: No known drug allergies. MEDICATIONS AN OUTPATIENT: 1. Aspirin 81 mg daily. 2. Lasix 20 mg daily. 3. Atorvastatin 40 mg daily. 4. Atenolol 25 mg daily. 5. Flovent inhaler. 6. DuoNeb. 7. Two liters of oxygen via nasal cannula continuous. PHYSICAL EXAMINATION: VITALS: Temperature 36.6, pulse 54, respiratory rate 16, blood pressure 103/64, saturating 92% on 4 liters nasal cannula. GENERAL: Awake, alert, oriented x3, cachectic in appearance. HEENT: Normocephalic, atraumatic. Pupils equal, round, and reactive to light and accommodation. Extraocular muscles intact. Anicteric sclerae. Moist mucous membranes. NECK: No JVD, no bruit. CARDIOVASCULAR: Regular but distant. Unable to appreciate murmurs, rubs or gallops. PULMONARY: Poor air movement diffusely. Unable to appreciate any rales, rhonchi, or wheezing. ABDOMEN: Bowel sounds x4, soft. No rebound, guarding, tenderness. No organomegaly. EXTREMITIES: +2 pedal pulses bilaterally with clubbing and cyanosis present. +1 pedal pulses bilaterally. SKIN: Warm and dry. Significant scrotal and penile edema is present. A 2D echocardiogram was read as small LV chamber size with severe concentric LVH, D-shaped septum consistent with significant RV/pressure overload, hyperdynamic LV systolic function, EF greater than 70%, no segmental left ventricle wall motion abnormalities were noted, grade 1 diastolic dysfunction. Severely dilated right ventricle with moderately reduced systolic function by TAPSE. Moderate tricuspid regurgitation, severe right atrial enlargement, pulmonary hypertension is present with PA systolic pressure of 60 mmHg. A 12-lead EKG performed in the Emergency Department independently reviewed at this time shows sinus bradycardia with first degree AV block, bifascicular block with left posterior fascicular block and right bundle branch block, marked diffuse T-wave inversions. IMPRESSION: 1. Acute right-sided heart failure. 2. Emphysematous chronic obstructive pulmonary disease. 3. Continued tobacco abuse. 4. Pulmonary hypertension. RECOMMENDATIONS: It was my pleasure to see Mr. Yun in consultation today. The pathophysiology and treatment options for his right-sided heart failure were discussed with the patient at great lengths. At this point we will continue diuresis with Lasix 40 mg IV along with potassium supplementation. Other than that his atenolol will be held due to bradycardia and strict I's and O's will be followed. Thank you very much for allowing me to participate in the care of your patient.
[2017-08-18 11:01] LABS: CKMB/CK RATIO 2.2 (0-3.0)
--- NOTE | 2017-08-18 17:14 | Progress Note ---
Internal Med Progress Note Date of Service: Aug 18, 2017. Provider Documentation: SUBJECTIVE: sitting on the bed comfortably feeling better than yesterday denies chest pain denies ob afebrile concerned that legs are swollen OBJECTIVE: Vital Signs-as noted below Exam: General-alert and oriented. Not in distress ENT-normal hearing Neck-no neck masses Lungs- cta b/l no wheezing or crackles Heart-s1 and s2 heard regular rate and rhythm no murmurs Abdomen-soft bowel sounds present no tenderness present no distension Extremities- b/l lower extremity edema present extending up to scrotum. lower extremity erythematous Neuro-alert and oriented moves extremities Lab data as noted below. ASSESSMENT & PLAN: This is a 71 year old male with a PMH of severe COPD and chronic respiratory failure on 2L of O2, tobacco use disorder, right sided heart failure, cor pulmonale, AAA presents with significant lower extremity swelling Acute on chronic Right Sided Heart Failure with preserved EF Cor Pulmonale patient with cor pulmonale due to significant lung disease uses Lasix 40mg daily at home presented with worsening swelling of the lower extremities, scrotum and penis currently on iv Lasix 40mg bid and kcl supplements. PUL. HTN 60mmhg echo severe dilated RV, moderately depressed right heart function, moderate TR cardiology on board and appreciate inputs Cellulitis of the Scrotum there is ulceration on the scrotum, warm to touch, likely infected on Rocephin and Vancomycin will monitor Bifascicular Block Prolonged Qt interval there is a new bifascicular block avoid Qt prolonging agents when possible will monitor electrolytes f/u repeat ekg Severe COPD Chronic Respiratory Failure patient presents with shortness of breath, a chronic issue, possibly acute on chronic currently on 4L; will monitor with Lasix use on duonebs scheduled and PRN will monitor Tobacco Use Disorder counseled on cessation added nicotine patch DVT ppx subq heparin DISPOSITION monitor in tele to be determined Vital Signs: Date Time Temp Pulse Resp B/P (MAP) Pulse Ox O2 Delivery O2 Flow Rate FiO2 08/18/17 16:02 36.9 84 16 116/74 (88) 95 08/18/17 14:39 64 18 95 Nasal Cannula 4.0 08/18/17 12:00 Nasal Cannula 4.0 08/18/17 11:19 57 18 95 Nasal Cannula 4.0 08/18/17 10:48 36.5 57 22 101/62 (75) 95 Nasal Cannula 4.0 08/18/17 08:00 Nasal Cannula 4.0 08/18/17 07:14 52 18 91 Nasal Cannula 4.0 08/18/17 07:10 36.6 54 20 103/64 (77) 92 Nasal Cannula 4.0 08/18/17 04:45 36.5 55 22 102/57 (72) 94 Nasal Cannula 4.0 08/18/17 04:00 Nasal Cannula 4.0 08/17/17 23:34 37.2 60 15 123/73 93 Nasal Cannula 4.0 08/17/17 22:16 63 20 112/70 90 Nasal Cannula 5.0 08/17/17 20:56 60 22 123/80 89 Nasal Cannula 2.0 08/17/17 19:45 60 124/83 94 Room Air 08/17/17 18:45 62 20 123/85 92 Nasal Cannula 2.0 08/17/17 17:25 56 Lab Results: Results Past 24 Hours Test 08/17/17 19:07 08/17/17 19:55 08/18/17 02:39 08/18/17 10:12 Range/Units Urine Color DK YELLOW Urine Appearance CLEAR CLEAR Urine pH 6.0 4.5-7.5 Urine Specific [place] 1.013 1.000-1.030 Urine Protein 1+ NEG Urine Glucose (UA) NEG NEG Urine Ketones NEG NEG Urine Occult Blood 1+ NEG Urine Nitrite NEG NEG Urine Bilirubin NEG NEG Urine Urobilinogen POS NEG Urine Leukocyte Esterase NEG NEG Urine WBC (Auto) 1-5 0-5 /hpf Urine RBC (Auto) 0-4 0-4 /hpf Urine Hyaline Casts (Auto) 5-10 0-5 /lpf Urine Epithelial Cells (Auto) >30 0-5 /lpf Urine Bacteria (Auto) NEG NEG Urine Renal Epithelial Cells 0-5 0-5 /lpf Prothrombin Time 13.5 9.0-12.0 SECONDS Prothromb Time International Ratio 1.3 0.9-1.1 Activated Partial Thromboplast Time 28.2 21.0-31.0 SECONDS Partial Thromboplastin Ratio 1.1 White Blood Count 3.50 4.8-10.8 K/uL Red Blood Count 4.72 4.7-6.1 M/uL Hemoglobin 16.3 14.0-18.0 g/dL Hematocrit 50.5 42-52 % Mean Corpuscular Volume 107.0 80-100 fL Mean Corpuscular Hemoglobin 34.5 25-34 pg Mean Corpuscular Hemoglobin Concent 32.3 32-36 g/dl RDW Standard Deviation 67.8 36.4-46.3 fL RDW Coefficient of Variation 17.4 11.5-14.5 % Platelet Count 100 130-400 K/uL Mean Platelet Volume 11.8 7.4-10.4 fL Sodium Level 141 136-145 mmol/L Potassium Level 3.5 3.5-5.1 mmol/L Chloride Level 93 98-107 mmol/L Carbon Dioxide Level 44 21-32 mmol/L Anion Gap 4.0 3-11 mmol/L Blood Urea Nitrogen 27 7-18 mg/dl Creatinine 1.18 0.60-1.40 mg/dl Est Creatinine Clear Calc Drug Dose 44.9 ml/min Estimated GFR () 70.5 Estimated GFR (Non- 60.9 BUN/Creatinine Ratio 23.2 10-20 Random Glucose 170 70-99 mg/dl Calcium Level 8.3 8.5-10.1 mg/dl Magnesium Level 2.8 1.8-2.4 mg/dl Total Creatine Kinase 227 208 39-308 U/L Creatine Kinase MB 4.5 4.6 0.5-3.6 ng/ml Creatine Kinase MB Ratio 2.0 2.2 0-3.0 Troponin I 0.090 0.066 0-0.045 ng/ml
[2017-08-18] MEDS: POTASSIUM CHLORIDE 10 MEQ TABCR PO SCH (17:53)
[2017-08-18] MEDS: VANCOMYCIN INJ 1,000 MG in SODIUM CHLORIDE 0.9% 250ML 250 ML IV SCH (17:54)
[2017-08-18] MEDS: FUROSEMIDE INJ 40 MG in SYRINGE 0 ML IV SCH (17:54)
[2017-08-19] VITALS (10 sets, daily range): BP systolic 93–126; BP diastolic 47–69; PULSE 60–74; TEMP 36.7–37; O2SAT 85–98
[2017-08-19] MEDS: HEPARIN SOD 5000 UNIT/0.5 ML CARP SQ SCH ×3 (06:23→22:33)
[2017-08-19] MEDS: ALBUT/IPRATROP 3MG/0.5MG NEB 3 ML VIAL INH SCH ×4 (06:54→19:09)
[2017-08-19 07:44] LABS: CREATININE 1.08 mg/dl (0.60-1.40)
[2017-08-19 07:47] LABS: BASO % 0.1 %; BASO ABS # 0.01 K/uL (0-0.2); COMPLETE YES; EOS % 0.5 %; HEMATOCRIT 47.8 % (42-52); IG% 0.3 %; LYMPH % 6.8 %; LYMPH ABS # 0.79 K/uL (1.2-3.4); MEAN CELL VOLUME 109.9 fL (80-100); MEAN CORPUSCULAR HEMOGLOBIN 33.6 pg (25-34); MEAN CORPUSCULAR HGB CONC 30.5 g/dl (32-36); MEAN PLATELET VOLUME 11.8 fL (7.4-10.4); MONO % 12.1 %; NEUT % 80.2 %; PLATELET COUNT 123 K/uL (130-400); RED BLOOD COUNT 4.35 M/uL (4.7-6.1)
[2017-08-19] MEDS: ASPIRIN 81 MG ECTAB PO SCH (08:33)
[2017-08-19] MEDS: FUROSEMIDE INJ 40 MG in SYRINGE 0 ML IV SCH ×2 (08:33→16:51)
[2017-08-19] MEDS: ATORVASTATIN 40 MG TAB PO SCH (08:33)
[2017-08-19] MEDS: POTASSIUM CHLORIDE 10 MEQ TABCR PO SCH ×2 (08:33→16:52)
[2017-08-19 08:34] LABS: BUN/CREATININE RATIO 32.5 (10-20); CALCIUM 8.2 mg/dl (8.5-10.1); CREATININE 1.11 mg/dl (0.60-1.40); MAGNESIUM 2.5 mg/dl (1.8-2.4); POTASSIUM 4.2 mmol/L (3.5-5.1)
[2017-08-19] MEDS: NICOTINE 14 MG/24 HR TDSY TD SCH (08:34)
[2017-08-19] MEDS: VANCOMYCIN INJ 1,000 MG in SODIUM CHLORIDE 0.9% 250ML 250 ML IV SCH (11:34)
--- NOTE | 2017-08-19 12:15 | Cardiology Follow-Up ---
Subjective Subjective Date of Service: Aug 19, 2017. Pt evaluation today including: conversation w/ patient, physical exam, chart review, lab review, review of studies, review of inpatient medication list Additional Details: Pt seen and examined, ambulating in hallway with walker. States that he's feeling ok. LE swelling improved from yesterday. Breathing at baseline, improved with O2. Denies cp, palpitations, lightheadedness or dizziness. Tele reviewed: sinus rhythm with occasional PVC's, no sustained arrhythmias. Problem List Medical Problems: (1) Acute electrocardiogram changes Status: Acute (2) CHF (congestive heart failure) Status: Chronic (3) Elevated troponin Status: Acute Review of Systems Respiratory: + shortness of breath, No see HPI, No cough, No sputum, No wheezing, No dyspnea on exertion, No dyspnea at rest, No hemoptysis, No problem reported Cardiac: No see HPI, No chest pain, No orthopnea, No PND, No edema, No claudication, No palpitations, No problem reported Objective Vital Signs Last Vital Signs Documentation Date Time Temp Pulse Resp B/P (MAP) Pulse Ox O2 Delivery O2 Flow Rate FiO2 08/19/17 11:30 Nasal Cannula 4.0 08/19/17 10:29 36.7 74 93/47 (62) 85 08/19/17 07:02 22 Physical Exam: General Appearance: WD/WN, no apparent distress Eyes: bilateral eyes normal inspection, bilateral eyes PERRL, bilateral eyes EOMI ENT: normal ENT inspection, hearing grossly normal, pharynx normal Neck: supple, no adenopathy, thyroid normal, no JVD, no carotid bruits, trachea midline Respiratory/Chest: + decreased breath sounds, + rhonchi Cardiovascular: regular rate, rhythm, + pertinent finding (distant) Abdomen: normal bowel sounds, non tender, soft, no organomegaly, no pulsatile mass Extremities: no calf tenderness, + pertinent finding (+1 B/L LE pitting edema/ scrotal edema present but improved) Neurologic/Psychiatric: hoister II-XII nml as tested, no motor/sensory deficits, alert, normal mood/affect, oriented x 3 Skin: normal color, warm/dry, no rash Lymphatic: no adenopathy Assessment and Plan 1. acute decompensated Right sided heart failure due to copd/tobacco abuse improving diuresing well will cont with IV lasix for now follow I/O's follow and replete lytes as necessary smoking cessation counseling
--- NOTE | 2017-08-19 17:27 | Progress Note ---
Internal Med Progress Note Date of Service: Aug 19, 2017. Provider Documentation: SUBJECTIVE: sitting on the bed comfortably legs swelling much improved denies any chest pain or sob eating ok feeling better hard of hearing OBJECTIVE: Vital Signs-as noted below Exam: General-alert and oriented. Not in distress ENT-hard of hearing Neck-no neck masses Lungs- cta b/l no wheezing or crackles Heart-s1 and s2 heard regular rate and rhythm no murmurs Abdomen-soft bowel sounds present no tenderness present no distension Extremities- b/l lower extremity edema present extending up to scrotum and lower extremity erythematous- improving Neuro-alert and oriented moves extremities Lab data as noted below. ASSESSMENT & PLAN: This is a 71 year old male with a PMH of severe COPD and chronic respiratory failure on 2L of O2, tobacco use disorder, right sided heart failure, cor pulmonale, AAA presents with significant lower extremity swelling. Acute Right sided hear failure. On IV Lasix improving. cardiology on board. Has scrotal and penile swelling and possible infection. on iv abx,. Will f/u scrotal ultrasound. Will consult urology. Await pt/ot. Acute on chronic Right Sided Heart Failure with preserved EF Cor Pulmonale patient with cor pulmonale due to significant lung disease uses Lasix 40mg daily at home presented with worsening swelling of the lower extremities, scrotum and penis currently on iv Lasix 40mg bid and kcl supplements. PUL. HTN 60mmhg echo severe dilated RV, moderately depressed right heart function, moderate TR cardiology on board and appreciate inputs to continue current lasix and monitor elecytrolytes i/o's Cellulitis of the Scrotum there is ulceration on the scrotum, warm to touch, likely infected on Rocephin and Vancomycin consult urology in am will get ultrasound will monitor Bifascicular Block Prolonged Qt interval there is a new bifascicular block avoid Qt prolonging agents when possible will monitor electrolytes f/u repeat ekg- QT improved Severe COPD Chronic Respiratory Failure patient presents with shortness of breath, a chronic issue, possibly acute on chronic currently on 4L; will monitor with Lasix use on duonebs scheduled and PRN will monitor Tobacco Use Disorder counseled on cessation added nicotine patch DVT ppx subq heparin DISPOSITION monitor in tele pt/ot to be determined Vital Signs: Date Time Temp Pulse Resp B/P (MAP) Pulse Ox O2 Delivery O2 Flow Rate FiO2 08/19/17 16:45 126/69 (88) 08/19/17 15:30 Nasal Cannula 4.0 08/19/17 14:51 68 18 98 Nasal Cannula 4.0 08/19/17 11:30 Nasal Cannula 4.0 08/19/17 11:17 74 18 95 Nasal Cannula 4.0 08/19/17 10:29 36.7 74 93/47 (62) 85 Nasal Cannula 4.0 08/19/17 07:30 Nasal Cannula 4.0 08/19/17 07:02 36.9 68 22 104/55 (71) 97 Nasal Cannula 4.0 08/19/17 06:54 60 18 94 Nasal Cannula 4.0 08/19/17 04:27 37.0 60 17 94/48 (63) 94 Nasal Cannula 2.0 08/19/17 04:00 Nasal Cannula 4.0 08/19/17 00:13 37.0 69 18 99/60 (73) 95 Nasal Cannula 2.0 08/19/17 00:00 Nasal Cannula 4.0 08/18/17 20:00 Nasal Cannula 4.0 08/18/17 19:46 37.0 72 18 121/69 (86) 97 08/18/17 19:10 60 18 Nasal Cannula 4.0 Lab Results: Results Past 24 Hours Test 08/19/17 06:51 Range/Units White Blood Count 11.70 4.8-10.8 K/uL Red Blood Count 4.35 4.7-6.1 M/uL Hemoglobin 14.6 14.0-18.0 g/dL Hematocrit 47.8 42-52 % Mean Corpuscular Volume 109.9 80-100 fL Mean Corpuscular Hemoglobin 33.6 25-34 pg Mean Corpuscular Hemoglobin Concent 30.5 32-36 g/dl Platelet Count 123 130-400 K/uL Mean Platelet Volume 11.8 7.4-10.4 fL Neutrophils (%) (Auto) 80.2 % Lymphocytes (%) (Auto) 6.8 % Monocytes (%) (Auto) 12.1 % Eosinophils (%) (Auto) 0.5 % Basophils (%) (Auto) 0.1 % Neutrophils # (Auto) 9.38 1.4-6.5 K/uL Lymphocytes # (Auto) 0.79 1.2-3.4 K/uL Monocytes # (Auto) 1.42 0.11-0.59 K/uL Eosinophils # (Auto) 0.06 0-0.5 K/uL Basophils # (Auto) 0.01 0-0.2 K/uL RDW Standard Deviation 70.6 36.4-46.3 fL RDW Coefficient of Variation 17.5 11.5-14.5 % Immature Granulocyte % (Auto) 0.3 % Immature Granulocyte # (Auto) 0.04 0.00-0.02 K/uL Sodium Level 142 136-145 mmol/L Potassium Level 4.2 3.5-5.1 mmol/L Chloride Level 94 98-107 mmol/L Carbon Dioxide Level 46 21-32 mmol/L Anion Gap 2.0 3-11 mmol/L Blood Urea Nitrogen 36 7-18 mg/dl Creatinine 1.11 0.60-1.40 mg/dl Est Creatinine Clear Calc Drug Dose 47.7 ml/min Estimated GFR () 75.9 Estimated GFR (Non- 65.5 BUN/Creatinine Ratio 32.5 10-20 Random Glucose 132 70-99 mg/dl Calcium Level 8.2 8.5-10.1 mg/dl Magnesium Level 2.5 1.8-2.4 mg/dl
--- NOTE | 2017-08-19 20:45 | Urology Consultation ---
History General Date of Service: Aug 19, 2017. Primary Care Physician: Ralph Leyva M.D.([facility]) Pt seen a urologist before?: No History of Present Illness 71 y/o male with CHF exacerbation also reports scrotal edema. This started several days ago. He was told to come to the ER to r/o Fourniers. CT scan was performed which showed edema in the mons and scrotum. No evidence of air in the tissue. That patient also has a sig amount of lower ext edema. In the last 24 hours, a small area of concern on the scrotum was noted and urology was consulted. Scrotal US is pending. Imaging Imaging: CT Laboratory Labs were reviewed and are within normal limits unless listed below. Labs are available in the chart and at [facility] [place] Problem List Medical Problems: (1) Acute electrocardiogram changes Status: Acute (2) CHF (congestive heart failure) Status: Chronic (3) Elevated troponin Status: Acute Past History other Past Surgical History: other Social History Hx Tobacco Use In Past Year?: Yes (about 1/4 pack a day ) Marital status: Occupation status: retired History of MDRO No Allergies Coded Allergies: NO KNOWN DRUG ALLERGIES (Unverified Allergy, Unknown, NONE, 05/04/14) Medications Home Medications: Home Meds and Scripts Medications Dose Route/Sig Max Daily Dose Days Date Category Oxygen Gas 2.5 Liter NA NIGHT 05/04/14 Reported Atrovent 0.02% Soln (Ipratropium New Era) 2.5 Ml Nebu 1 Dose INH PRN 05/04/14 Reported Lasix (Furosemide) 40 Mg Tab 20 Mg PO DAILY 05/04/14 Reported Atenolol 25 Mg Tab 1 Tab PO HS 05/04/14 Reported Inpatient Medications: Current Inpatient Medications Medications (Trade) Dose Ordered Sig/Joyce Route Start Time Stop Time Status Last Admin Dose Admin Ioversol (Optiray 320) 100 ml UD PRN IV 08/17/17 17:15 08/21/17 17:14 Ceftriaxone Sodium 1 gm/ Dextrose 50 ml @ 100 mls/hr Q24H IV 08/19/17 22:00 08/25/17 21:59 Vancomycin HCl 1000 mg/Sodium Chloride 270 ml @ 125 mls/hr Q18H IV 08/18/17 16:00 08/28/17 15:59 08/19/17 11:34 125 MLS/HR Heparin Sodium (Porcine) (Heparin Sq 5000 Unit/0.5ml) 5,000 unit Q8H SQ 08/18/17 06:00 09/17/17 05:59 08/19/17 13:10 5,000 UNIT Acetaminophen (Tylenol Tab) 650 mg Q4H PRN PO 08/17/17 21:00 09/16/17 20:59 Al Hydrox/Mg Hydrox/Simethicone (Maalox Max Susp) 15 ml Q4H PRN PO 08/17/17 21:00 09/16/17 20:59 08/19/17 14:39 15 ML Magnesium Hydroxide (Milk Of Magnesia Susp) 30 ml Q12H PRN PO 08/17/17 21:00 09/16/17 20:59 Nicotine (Nicoderm Cq 14MG Patch) 1 patch QAM TD 08/18/17 09:00 09/17/17 08:59 08/19/17 08:34 1 PATCH Miscellaneous (Remove Nicoderm Patch) 1 ea HS N/A 08/18/17 21:00 09/17/17 20:59 08/18/17 21:07 1 EA Atorvastatin Calcium (Lipitor Tab) 40 mg QAM PO 08/18/17 09:00 09/17/17 08:59 08/19/17 08:33 40 MG Vancomycin HCl (Consult) 1 ea UD PRN N/A 08/17/17 21:30 09/16/17 21:29 Albuterol/ Ipratropium (Duoneb) 3 ml QIDR INH 08/18/17 08:00 09/17/17 07:59 08/19/17 19:09 3 ML Furosemide 40 mg/ Syringe 4 ml @ 4 mls/min BID17 IV 08/18/17 17:00 09/17/17 16:59 08/19/17 16:51 4 MLS/MIN Potassium Chloride (Klor-Con M10) 40 meq BID17 PO 08/18/17 17:00 09/17/17 16:59 08/19/17 16:52 40 MEQ Aspirin (Ecotrin Tab) 81 mg QAM PO 08/19/17 09:00 09/18/17 08:59 08/19/17 08:33 81 MG Review of Systems Review of Systems All Other Systems: Reviewed and Negative Physical Exam Vital Signs: Vital Signs Past 12 Hours Date Time Temp Pulse Resp B/P (MAP) Pulse Ox O2 Delivery O2 Flow Rate FiO2 08/19/17 19:51 36.8 72 16 118/68 (85) 95 08/19/17 19:09 62 18 98 Nasal Cannula 4.0 08/19/17 16:45 126/69 (88) 08/19/17 15:30 Nasal Cannula 4.0 08/19/17 14:51 68 18 98 Nasal Cannula 4.0 08/19/17 11:30 Nasal Cannula 4.0 08/19/17 11:17 74 18 95 Nasal Cannula 4.0 08/19/17 10:29 36.7 74 93/47 (62) 85 Nasal Cannula 4.0 Physical Exam: General Appearance: no apparent distress ENT: normal ENT inspection Neck: supple Respiratory/Chest: + crackles Cardiovascular: regular rate, rhythm Extremities: + swelling Neurologic/Psychiatric: alert Skin: warm/dry Lymphatic: no adenopathy Additional Comments: Scrotal edema with some redness. A small area of skin breakdown due to edema. No crepitus. Assessment & Plan Assessment & Plan (1) Cellulitis of scrotum Scrotum edematous from fluid overload. Skin breakdown. I don't suspect abscess or Fourniers gangrene at this time. Will check scrotal US. Continue diuresis. Scrotal elevation with towels. Increase ambulation to mobilize fluid. Will follow.
[2017-08-19] MEDS ORDERED: CEFTRIAXONE SOD INJ 1 GM in DEXTROSE 5% ADD-VANTAGE 50ML 50 ML IV SCH (22:00)
[2017-08-20] VITALS (14 sets, daily range): BP systolic 109–146; BP diastolic 57–76; PULSE 62–88; TEMP 36.6–37.2; O2SAT 90–98
[2017-08-20] MEDS ORDERED: VANCOMYCIN TROUGH ONE (03:30)
[2017-08-20 03:40] LABS: BASO % 0.1 %; BASO ABS # 0.01 K/uL (0-0.2); COMPLETE YES; EOS % 2.7 %; HEMATOCRIT 47.7 % (42-52); IG% 0.5 %; LYMPH % 10.8 %; LYMPH ABS # 0.89 K/uL (1.2-3.4); MEAN CELL VOLUME 108.4 fL (80-100); MEAN CORPUSCULAR HEMOGLOBIN 33.2 pg (25-34); MEAN CORPUSCULAR HGB CONC 30.6 g/dl (32-36); MEAN PLATELET VOLUME 10.8 fL (7.4-10.4); MONO % 10.7 %; NEUT % 75.2 %; PLATELET COUNT 111 K/uL (130-400); WHITE BLOOD COUNT 8.22 K/uL (4.8-10.8)
[2017-08-20 04:01] LABS: CALCIUM 7.8 mg/dl (8.5-10.1); CREATININE 1.01 mg/dl (0.60-1.40); MAGNESIUM 2.2 mg/dl (1.8-2.4); POTASSIUM 4.7 mmol/L (3.5-5.1)
[2017-08-20] MEDS: VANCOMYCIN INJ 1,000 MG in SODIUM CHLORIDE 0.9% 250ML 250 ML IV SCH (04:39)
[2017-08-20] MEDS: HEPARIN SOD 5000 UNIT/0.5 ML CARP SQ SCH ×3 (06:38→21:47)
[2017-08-20] MEDS: ALBUT/IPRATROP 3MG/0.5MG NEB 3 ML VIAL INH SCH ×4 (06:51→19:07)
[2017-08-20] MEDS: NICOTINE 14 MG/24 HR TDSY TD SCH (07:21)
[2017-08-20] MEDS: POTASSIUM CHLORIDE 10 MEQ TABCR PO SCH (07:22)
[2017-08-20] MEDS: ASPIRIN 81 MG ECTAB PO SCH (07:22)
[2017-08-20] MEDS: ATORVASTATIN 40 MG TAB PO SCH (07:22)
--- NOTE | 2017-08-20 08:40 | DIAGNOSTIC IMAGING REPORT ---
(TESTICULAR) SCROTUM-CONT CLINICAL HISTORY: 71 years-old Male presenting with swollen . possible infection, history of CHF. TECHNIQUE: Real-time grayscale and color and spectral Doppler ultrasound imaging of the scrotum was performed. COMPARISON: None. FINDINGS: Right testis: Normal echogenicity and echotexture. Testis measures 3.7 x 3.0 x 2.3 cm. Normal color Doppler flow and arterial and venous waveforms in the testicular parenchyma. Epididymal head normal. No hydrocele. No varicocele. Left testis: Normal echogenicity and echotexture. Testis measures 4.0 x 2.9 x 2.6 cm. Normal color Doppler flow and arterial and venous waveforms in the testicular parenchyma. Epididymal head normal. No hydrocele. Left varicocele. Symmetric perfusion of the testes. IMPRESSION: 1. No evidence of testicular torsion or epididymitis-orchitis. 2. Left varicocele. Electronically signed by: Garret Martinez M.D. 08/20/2017 8:38 AM Dictated Date/Time: 08/20/2017 8:36 AM
[2017-08-20] MEDS: FUROSEMIDE INJ 40 MG in SYRINGE 0 ML IV SCH (09:10)
--- NOTE | 2017-08-20 11:36 | Pharmacy Progress Note ---
Pharmacy Abx Dose Short Note Date of Service Aug 20, 2017. Assessment & Plan Assessment * 71 year old male receiving VANCOMYCIN IV (dosing per pharmacy) + CEFTRIAXONE IV for treatment of scrotal cellulitis and CAP * Day # 4 of antimicrobial therapy * CT abd/pelvis: + for edema of mons pubis and upper scrotum without evidence of fasciitis per report * CXR: consolidative opacities L lung base suspicious of pneumonia with parapneumonic effusion per report * Afebrile, no leukocytosis on today's labs, no tachycardia or hypotension noted , still requiring 2-3 L NC to maintain Sats * Renal fxn appears stable based upon U.O. and SCr Plan Vancomycin * Trough level of 16.31 mcg/mL is therapeutic, drawn with the 3rd maintenance dose. Other levels had been hung nearly on time and variation from scheduled time should not have caused a large variation in today's result. Level was also drawn at the appropriate time. * Level may not be fully reflective of steady-state and may increase w/ repeat dosing * Continue dose of 1000 mg (~15mg/kg) IV every 18 hours * Goal trough level for pulm infxn w/ cellulitis : 15 to 20 mcg/mL * Repeat trough tomorrow w/ 1600 dose to confirm drug accumulation not excessive Pharmacy will continue to follow and will adjust dose/frequency as necessary. Thank you.
--- NOTE | 2017-08-20 12:51 | Cardiology Follow-Up ---
Subjective Subjective Date of Service: Aug 20, 2017. Pt evaluation today including: conversation w/ patient, physical exam, chart review, lab review, review of studies, review of inpatient medication list Additional Details: Pt seen and examined, states that he feels well. Swelling has resolved. Denies cp, sob, palpitiations lightheadedness or dizziness. Tele reviewed: sinus rhythm without arrhythmia, occasional PVC's. Problem List Medical Problems: (1) Acute electrocardiogram changes Status: Acute (2) CHF (congestive heart failure) Status: Chronic (3) Elevated troponin Status: Acute Review of Systems Respiratory: + shortness of breath, No see HPI, No cough, No sputum, No wheezing, No dyspnea on exertion, No dyspnea at rest, No hemoptysis, No problem reported Cardiac: No see HPI, No chest pain, No orthopnea, No PND, No edema, No claudication, No palpitations, No problem reported Objective Vital Signs Last Vital Signs Documentation Date Time Temp Pulse Resp B/P (MAP) Pulse Ox O2 Delivery O2 Flow Rate FiO2 08/20/17 12:00 Nasal Cannula 2.0 08/20/17 11:36 88 18 98 08/20/17 11:12 36.8 109/68 (82) Physical Exam: General Appearance: no apparent distress Eyes: bilateral eyes normal inspection, bilateral eyes PERRL, bilateral eyes EOMI ENT: normal ENT inspection Neck: supple Respiratory/Chest: + crackles Cardiovascular: regular rate, rhythm Abdomen: normal bowel sounds, non tender, soft, no organomegaly, no pulsatile mass Extremities: + swelling Neurologic/Psychiatric: alert Skin: warm/dry Lymphatic: no adenopathy Assessment and Plan 1. acute decompensated Right sided heart failure due to copd/tobacco abuse has diuresed well will change po lasix to po likely d/c to home on lasix 40 mg po daily with an extra tablet to be taken in afternoons for swelling PRN smoking cessation counseling
[2017-08-20] MEDS ORDERED: FUROSEMIDE 40 MG TAB PO ONE (17:00)
--- NOTE | 2017-08-20 17:50 | Progress Note ---
Subjective Date of Service: Aug 20, 2017. Subjective Pt evaluation today including: conversation w/ patient, physical exam Voiding: no voiding problems his scrotal swelling has resolved and his penile swelling has gone down by about 80%. He has no pain but denies having pain at presentation. All improvements related to diuretics. Problem List Medical Problems: (1) Acute electrocardiogram changes Status: Acute (2) CHF (congestive heart failure) Status: Chronic (3) Elevated troponin Status: Acute Review of Systems Constitutional: + weight loss, No fever, No chills Respiratory: + cough, + shortness of breath, + dyspnea on exertion Cardiac: No chest pain Male : + urinary frequency Objective Vital Signs Date Time Temp Pulse Resp B/P (MAP) Pulse Ox O2 Delivery O2 Flow Rate FiO2 08/20/17 16:00 92 Nasal Cannula 2.0 08/20/17 15:54 36.9 76 16 118/73 (88) 92 Nasal Cannula 08/20/17 15:38 75 18 92 Nasal Cannula 2.0 08/20/17 12:00 Nasal Cannula 2.0 08/20/17 11:36 88 18 98 Nasal Cannula 3.0 08/20/17 11:12 36.8 65 20 109/68 (82) 91 Nasal Cannula 3.0 08/20/17 10:52 70 90 08/20/17 08:00 Nasal Cannula 4.0 08/20/17 07:30 36.6 66 20 119/63 (81) 96 Nasal Cannula 4.0 08/20/17 06:51 66 18 96 Nasal Cannula 4.0 08/20/17 04:20 36.7 62 17 116/64 (81) 92 Nasal Cannula 2.0 08/20/17 04:00 Nasal Cannula 2.0 08/20/17 00:16 37.2 68 17 146/57 (86) 94 Nasal Cannula 2.0 08/20/17 00:00 Nasal Cannula 4.0 08/19/17 20:00 Nasal Cannula 4.0 08/19/17 19:51 36.8 72 16 118/68 (85) 95 08/19/17 19:09 62 18 98 Nasal Cannula 4.0 Physical Exam General Appearance: WD/WN, no apparent distress, + thin Eyes: normal inspection ENT: hearing grossly normal Respiratory/Chest: + decreased breath sounds, + accessory muscle use Neurologic/Psychiatric: alert, normal mood/affect, oriented x 3 Comments: - uncirc phallus with mild edema, scrotum no edema, one ulcer clean about 8mm size on the right anterior scrotum. No drainage. Laboratory Results Last 24 Hours Test 08/20/17 03:25 White Blood Count 8.22 K/uL Red Blood Count 4.40 M/uL Hemoglobin 14.6 g/dL Hematocrit 47.7 % Mean Corpuscular Volume 108.4 fL Mean Corpuscular Hemoglobin 33.2 pg Mean Corpuscular Hemoglobin Concent 30.6 g/dl Platelet Count 111 K/uL Mean Platelet Volume 10.8 fL Neutrophils (%) (Auto) 75.2 % Lymphocytes (%) (Auto) 10.8 % Monocytes (%) (Auto) 10.7 % Eosinophils (%) (Auto) 2.7 % Basophils (%) (Auto) 0.1 % Neutrophils # (Auto) 6.18 K/uL Lymphocytes # (Auto) 0.89 K/uL Monocytes # (Auto) 0.88 K/uL Eosinophils # (Auto) 0.22 K/uL Basophils # (Auto) 0.01 K/uL RDW Standard Deviation 67.4 fL RDW Coefficient of Variation 17.1 % Immature Granulocyte % (Auto) 0.5 % Immature Granulocyte # (Auto) 0.04 K/uL Sodium Level 139 mmol/L Potassium Level 4.7 mmol/L Chloride Level 92 mmol/L Carbon Dioxide Level 41 mmol/L Anion Gap 6.0 mmol/L Blood Urea Nitrogen 29 mg/dl Creatinine 1.01 mg/dl Est Creatinine Clear Calc Drug Dose 52.4 ml/min Estimated GFR () 85.1 Estimated GFR (Non- 73.4 BUN/Creatinine Ratio 29.0 Random Glucose 100 mg/dl Calcium Level 7.8 mg/dl Magnesium Level 2.2 mg/dl Vancomycin Level Trough 16.1 mcg/ml Assessment and Plan fluid overload resolved with diuretic I showed ulcer on scrotum to patient and asked him ot examine it daily and wash it with soap and water. RTC if it worsens. He plans to quit smoking.
--- NOTE | 2017-08-20 18:00 | Progress Note ---
Internal Med Progress Note Date of Service: Aug 20, 2017. Provider Documentation: SUBJECTIVE: denies of any discomfort, no complain of SOB or orthopnea improved vol status lower ext swelling , scrotal swelling improved markedly with diuresis OBJECTIVE: Vital Signs-as noted below Exam: General-very pleasant, no sign of distress, conversing , ambulating independently Eyes-sclera non icteric , PERRLA/EOMI ENT-normal exam Neck-no thyromegaly , no carotid bruit Lungs-CTA , no wheeze or rales Heart-regular S1/S2 Abdomen-soft ,non tender Extremities-trace bilateral lower ext edema Neuro-AAO x3, no focal neurological deficit Lab data as noted below. ASSESSMENT & PLAN: This is a 71 year old male with a PMH of severe COPD and chronic respiratory failure on 2L of O2, tobacco use disorder, right sided heart failure, cor pulmonale, AAA presents with significant lower extremity swelling. Acute Right sided hear failure. On IV Lasix improving. cardiology on board. Has scrotal and penile swelling and possible infection. on iv abx,. Will f/u scrotal ultrasound. Will consult urology. Await pt/ot. Acute on chronic Right Sided Heart Failure with preserved EF Cor Pulmonale patient with cor pulmonale due to significant lung disease uses Lasix 40mg daily at home presented with worsening swelling of the lower extremities, scrotum and penis got aggressive diuresis with IV Lasix and kcl supplements. PUL. HTN 60mmhg echo severe dilated RV, moderately depressed right heart function, moderate TR cardiology on board and appreciate inputs Lasix changed to PO vol status improved to baseline no SOB /REBOLLAR or orthopnea Scrotal Swelling due to decompensated CHF , vol overload improved with diuresis scrotal USG -no evidence of testicular torsion, moderate hydrocele appreciate urology eval no evidence of infection D/c IV ABx Bifascicular Block Prolonged Qt interval new bifascicular block avoid Qt prolonging agents when possible monitor electrolytes f/u repeat ekg- QT improved Severe COPD Chronic Respiratory Failure improved after diuresis patient presents with worsening shortness of breath due to CHF respiratory status improved to baseline on 2 L home 02 Tobacco Use Disorder counseled on cessation-pt is interested to quit added nicotine patch Referral Form faxed for [place] FREE Quitline pt will follow up with Dr. Leyva (pt's PCP) to get Chantix or Zyban prescribed for him. DVT ppx subq heparin DISPOSITION possible discharge home tomorrow Medicine follow up with Dr Leyva at [facility] Vital Signs: Date Time Temp Pulse Resp B/P (MAP) Pulse Ox O2 Delivery O2 Flow Rate FiO2 08/20/17 19:33 37.1 70 16 128/76 (93) 95 Nasal Cannula 3.0 08/20/17 19:27 37.1 70 16 128/76 (93) 95 Nasal Cannula 3.0 08/20/17 19:08 78 20 94 Nasal Cannula 2.0 08/20/17 17:59 Nasal Cannula 08/20/17 16:00 92 Nasal Cannula 2.0 08/20/17 15:54 36.9 76 16 118/73 (88) 92 Nasal Cannula 08/20/17 15:38 75 18 92 Nasal Cannula 2.0 08/20/17 12:00 Nasal Cannula 2.0 08/20/17 11:36 88 18 98 Nasal Cannula 3.0 08/20/17 11:12 36.8 65 20 109/68 (82) 91 Nasal Cannula 3.0 08/20/17 10:52 70 90 08/20/17 08:00 Nasal Cannula 4.0 08/20/17 07:30 36.6 66 20 119/63 (81) 96 Nasal Cannula 4.0 08/20/17 06:51 66 18 96 Nasal Cannula 4.0 08/20/17 04:20 36.7 62 17 116/64 (81) 92 Nasal Cannula 2.0 08/20/17 04:00 Nasal Cannula 2.0 08/20/17 00:16 37.2 68 17 146/57 (86) 94 Nasal Cannula 2.0 08/20/17 00:00 Nasal Cannula 4.0 08/19/17 20:00 Nasal Cannula 4.0 08/19/17 19:51 36.8 72 16 118/68 (85) 95 Lab Results: Results Past 24 Hours Test 08/20/17 03:25 Range/Units White Blood Count 8.22 4.8-10.8 K/uL Red Blood Count 4.40 4.7-6.1 M/uL Hemoglobin 14.6 14.0-18.0 g/dL Hematocrit 47.7 42-52 % Mean Corpuscular Volume 108.4 80-100 fL Mean Corpuscular Hemoglobin 33.2 25-34 pg Mean Corpuscular Hemoglobin Concent 30.6 32-36 g/dl Platelet Count 111 130-400 K/uL Mean Platelet Volume 10.8 7.4-10.4 fL Neutrophils (%) (Auto) 75.2 % Lymphocytes (%) (Auto) 10.8 % Monocytes (%) (Auto) 10.7 % Eosinophils (%) (Auto) 2.7 % Basophils (%) (Auto) 0.1 % Neutrophils # (Auto) 6.18 1.4-6.5 K/uL Lymphocytes # (Auto) 0.89 1.2-3.4 K/uL Monocytes # (Auto) 0.88 0.11-0.59 K/uL Eosinophils # (Auto) 0.22 0-0.5 K/uL Basophils # (Auto) 0.01 0-0.2 K/uL RDW Standard Deviation 67.4 36.4-46.3 fL RDW Coefficient of Variation 17.1 11.5-14.5 % Immature Granulocyte % (Auto) 0.5 % Immature Granulocyte # (Auto) 0.04 0.00-0.02 K/uL Sodium Level 139 136-145 mmol/L Potassium Level 4.7 3.5-5.1 mmol/L Chloride Level 92 98-107 mmol/L Carbon Dioxide Level 41 21-32 mmol/L Anion Gap 6.0 3-11 mmol/L Blood Urea Nitrogen 29 7-18 mg/dl Creatinine 1.01 0.60-1.40 mg/dl Est Creatinine Clear Calc Drug Dose 52.4 ml/min Estimated GFR () 85.1 Estimated GFR (Non- 73.4 BUN/Creatinine Ratio 29.0 10-20 Random Glucose 100 70-99 mg/dl Calcium Level 7.8 8.5-10.1 mg/dl Magnesium Level 2.2 1.8-2.4 mg/dl Vancomycin Level Trough 16.1 SEE COMMENT mcg/ml Microbiology Results 08/20/17 Urine Culture, Received Pending
[2017-08-20] MEDS ORDERED: LSX40 PO (19:36)
[2017-08-20] MEDS ORDERED: ASPEC81 PO (19:36)
[2017-08-20] MEDS ORDERED: POTA10CA28 PO (19:36)
[2017-08-20] MEDS ORDERED: LPT40 PO (19:36)
--- NOTE | 2017-08-20 19:37 | Discharge Instructions ---
Discharge Instructions Date of Service Aug 20, 2017. Admission Reason for Admission: Chf (Congestive Heart Failure) Discharge Discharge Diagnosis / Problem: ACUTE RT SIDED HEART FAILURE /COR PULMONALE Discharge Goals Goal(s): Decrease discomfort, Improve function, Increase independence, Improve disease control, Diagnostic testing, Therapeutic intervention Activity Recommendations Activity Limitations: resume your previous activity . Instructions / Follow-Up Instructions / Follow-Up HOSPITAL FOLLOW UP : 08/24/2017 12:30 PM Ralph Leyva MD Family Practice [facility] CARDIOLOGY FOLLOW UP : 08/28/2017 3:20 PM Saulo Pham DO Cardiology, [facility] LAB WORK: BASIC METABOLIC PANEL IN 1 WEEK TAKE LASIX 40 MG DAILY IN AM CAN TAKE EXTRA 40 MG IN AFTERNOON NEEDED FOR INCREASED LEG SWELLING IT IS VERY IMPORTANT TO QUIT SMOKING Referral Form faxed for [place] FREE Quitline Follow up with Dr. Leyva to get prescription for Chantix or Zyban to help quit smoking Call your Primary Care doctor if any of the following symptoms or problems start or get worse: * Shortness of breath or difficulty breathing * Wake up at night short of breath * Chest pain * Cough * Swelling of your hands, feet, or legs * More fatigued or tired with your normal activity * Palpitations - sudden fast heart beats WEIGHT * Weigh yourself every morning after using the bathroom. * Use the same scale. * Wear the same amount of clothing. * Write your weight down on a chart. * Call your Primary Care doctor if you gain more than 2-3 pounds in 1-2 days. MEDICATIONS * Use this discharge instruction sheet for medication instructions. * Take your medications at the time your doctor ordered. * Do not skip a dose of your medicines. * If you miss a dose of medicine, take it as soon as possible, but DO NOT DOUBLE A DOSE. * Read your medicine information when you get home. * Know all of the side effects of your medicine. If in doubt, ask your pharmacist * Call your Primary Care doctor's office if you have any side effects. * Be sure all of your doctors know what medicine and herbs you take (including cold, flu, and herbal medicine). Take the following with you to your follow-up doctor appointments: * Weight Chart * Medication List * List of questions Do not drink excessive alcohol, beer or wine. Current Hospital Diet Patient's current hospital diet: AHA Diet (Heart Healthy), Low Sodium Diet (2gm Na) Discharge Diet Recommended Diet: AHA Diet (Heart Healthy), Low Sodium Diet (2gm Na) Fluid Restriction: 1500 ml (6 cups) Pending Studies Studies pending at discharge: no Medical Emergencies . Who to Call and When: Call 911 or go to the Emergency Room if: * If at any time you feel your situation is an emergency * You have tightness or pain in your chest that does not go away with rest or Nitroglycerin * You are very short of breath even with rest . Non-Emergent Contact Non-Emergency issues call your: Primary Care Provider . . "Provider Documentation" section prepared by Maribel Koehler. . VTE Core Measure Inpt VTE Proph given/why not?: Unfractionated heparin SQ
[2017-08-21] VITALS (7 sets, daily range): BP systolic 91–123; BP diastolic 50–80; PULSE 73–92; TEMP 36.6–37.2; O2SAT 90–96
[2017-08-21 05:56] LABS: BASO % 0.3 %; BASO ABS # 0.02 K/uL (0-0.2); COMPLETE YES; EOS % 4.5 %; HEMATOCRIT 49.4 % (42-52); IG% 0.3 %; LYMPH % 12.9 %; MEAN CELL VOLUME 107.2 fL (80-100); MEAN CORPUSCULAR HEMOGLOBIN 34.5 pg (25-34); MEAN CORPUSCULAR HGB CONC 32.2 g/dl (32-36); MEAN PLATELET VOLUME 10.9 fL (7.4-10.4); MONO % 17.9 %; NEUT % 64.1 %; PLATELET COUNT 126 K/uL (130-400); RED BLOOD COUNT 4.61 M/uL (4.7-6.1); WHITE BLOOD COUNT 6.19 K/uL (4.8-10.8)
[2017-08-21] MEDS: HEPARIN SOD 5000 UNIT/0.5 ML CARP SQ SCH (06:16)
[2017-08-21 06:36] LABS: BUN/CREATININE RATIO 29.5 (10-20); CALCIUM 8.5 mg/dl (8.5-10.1); CREATININE 0.86 mg/dl (0.60-1.40); MAGNESIUM 2.5 mg/dl (1.8-2.4)
[2017-08-21] MEDS: ALBUT/IPRATROP 3MG/0.5MG NEB 3 ML VIAL INH SCH ×2 (07:02→11:10)
[2017-08-21] MEDS ORDERED: FUROSEMIDE 40 MG TAB PO SCH (09:00)
[2017-08-21] MEDS ORDERED: POTASSIUM CHLORIDE 10 MEQ TABCR PO SCH (09:00)
--- NOTE | 2017-08-21 09:20 | Cardiology Follow-Up ---
Subjective Subjective Date of Service: Aug 21, 2017. Pt evaluation today including: conversation w/ patient, physical exam, chart review, lab review, review of studies, review of inpatient medication list Additional Details: Pt seen and examined, states that he feels fine. LE edema resolved. Denies cp, sob, palpitations, lightheadedness or dizziness. Tele reviewed: sinus rhythm with rare PVC's, no sustained arrhythmias. Problem List Medical Problems: (1) Acute electrocardiogram changes Status: Acute (2) CHF (congestive heart failure) Status: Chronic (3) Elevated troponin Status: Acute Review of Systems Constitutional: + weight loss, No fever, No chills Respiratory: + cough, + shortness of breath, + dyspnea on exertion Cardiac: No chest pain Male : + urinary frequency Objective Vital Signs Last Vital Signs Documentation Date Time Temp Pulse Resp B/P (MAP) Pulse Ox O2 Delivery O2 Flow Rate FiO2 08/21/17 07:39 37.1 79 19 107/58 (74) 92 Nasal Cannula 4.0 08/21/17 00:20 96 Physical Exam: General Appearance: WD/WN, no apparent distress, + thin Eyes: bilateral eyes normal inspection, bilateral eyes PERRL, bilateral eyes EOMI ENT: normal ENT inspection, hearing grossly normal, pharynx normal Neck: supple, no adenopathy, thyroid normal, no JVD, no carotid bruits, trachea midline Respiratory/Chest: + decreased breath sounds, + accessory muscle use Cardiovascular: regular rate, rhythm, + pertinent finding (distant) Abdomen: normal bowel sounds, non tender, soft, no organomegaly, no pulsatile mass Extremities: non-tender, normal inspection, no pedal edema, no calf tenderness , + swelling 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 acute decompensated Right sided heart failure due to copd/tobacco abuse has diuresed well tolerating PO lasix d/c to home on lasix 40 mg po daily with an extra tablet to be taken in afternoons for swelling PRN smoking cessation counseling would d/c KCl supplementation bmp in 1 week cardiology CHF clinic f/u in 2-4 weeks as outpatient
[2017-08-21] MEDS: ATORVASTATIN 40 MG TAB PO SCH (09:25)
[2017-08-21] MEDS: ASPIRIN 81 MG ECTAB PO SCH (09:25)
[2017-08-21] MEDS: NICOTINE 14 MG/24 HR TDSY TD SCH (09:25)
[2017-08-21] MEDS ORDERED: FURO40TA3 PO ×2 (09:36→11:26)
--- NOTE | 2017-08-21 11:43 | Progress Note ---
Internal Med Progress Note Date of Service: Aug 21, 2017. Provider Documentation: SUBJECTIVE: No complain of chest pain or SOB lower ext swelling , scrotal swelling much improved evaluated by surgery today stable to be discharged home OBJECTIVE: Vital Signs-as noted below Exam: General-very pleasant, no sign of distress, conversing , ambulating independently Eyes-sclera non icteric , PERRLA/EOMI ENT-normal exam Neck-no thyromegaly , no carotid bruit Lungs-CTA , no wheeze or rales Heart-regular S1/S2 Abdomen-soft ,non tender Extremities-trace bilateral lower ext edema Neuro-AAO x3, no focal neurological deficit Lab data as noted below. ASSESSMENT & PLAN: This is a 71 year old male with a PMH of severe COPD and chronic respiratory failure on 2L of O2, tobacco use disorder, right sided heart failure, cor pulmonale, AAA presents with significant lower extremity swelling found to have Acute Right sided hear failure. Acute on chronic Right Sided Heart Failure with preserved EF Cor Pulmonale patient with cor pulmonale due to significant lung disease uses Lasix 40mg daily at home presented with worsening swelling of the lower extremities, scrotum and penis got aggressive diuresis with IV Lasix and kcl supplements. echo severe dilated RV, moderately depressed right heart function, moderate TR; PUL. HTN 60mmhg cardiology on board and appreciate inputs Lasix changed to PO Lasix 40 mg daily asked to take additional Lasix 40 mg in afternoon as needed for lower extremity swelling vol status improved to baseline no SOB /REBOLLAR or orthopnea potassium supplement D/chasity as K level ~5 repeat Basic metabolic panel in 1 week stable to be discharged home with above diuretics regimen Scrotal Swelling resolved due to decompensated CHF , vol overload improved with diuresis scrotal USG -no evidence of testicular torsion, moderate hydrocele appreciate urology eval no evidence of infection D/c IV ABx Bifascicular Block Prolonged Qt interval new bifascicular block avoid Qt prolonging agents when possible monitor electrolytes f/u repeat ekg- QT improved Severe COPD Chronic Respiratory Failure improved after diuresis patient presents with worsening shortness of breath due to CHF respiratory status improved to baseline on 2 L home 02 Tobacco Use Disorder counseled on cessation-pt is interested to quit added nicotine patch Referral Form faxed for [place] FREE Quitline pt will follow up with Dr. Leyva (pt's PCP) to get Chantix or Zyban prescribed for him. DVT ppx subq heparin DISPOSITION discharge home today Medicine follow up with Dr Leyva at [facility] Vital Signs: Date Time Temp Pulse Resp B/P (MAP) Pulse Ox O2 Delivery O2 Flow Rate FiO2 08/21/17 08:00 Nasal Cannula 4.0 08/21/17 07:39 37.1 79 19 107/58 (74) 92 Nasal Cannula 4.0 08/21/17 07:02 73 18 91 Nasal Cannula 2.0 08/21/17 04:07 37.2 92 20 91/50 (64) 90 Nasal Cannula 3.0 08/21/17 04:00 Nasal Cannula 2.0 08/21/17 00:20 37.0 80 18 123/80 (94) 96 Nasal Cannula 2.0 96 08/20/17 23:59 Nasal Cannula 2.0 08/20/17 20:00 92 Nasal Cannula 2.0 08/20/17 19:33 37.1 70 16 128/76 (93) 95 Nasal Cannula 3.0 08/20/17 19:27 37.1 70 16 128/76 (93) 95 Nasal Cannula 3.0 08/20/17 19:08 78 20 94 Nasal Cannula 2.0 08/20/17 17:59 Nasal Cannula 08/20/17 16:00 92 Nasal Cannula 2.0 08/20/17 15:54 36.9 76 16 118/73 (88) 92 Nasal Cannula 08/20/17 15:38 75 18 92 Nasal Cannula 2.0 08/20/17 12:00 Nasal Cannula 2.0 08/20/17 11:36 88 18 98 Nasal Cannula 3.0 Lab Results: Results Past 24 Hours Test 08/21/17 05:19 Range/Units White Blood Count 6.19 4.8-10.8 K/uL Red Blood Count 4.61 4.7-6.1 M/uL Hemoglobin 15.9 14.0-18.0 g/dL Hematocrit 49.4 42-52 % Mean Corpuscular Volume 107.2 80-100 fL Mean Corpuscular Hemoglobin 34.5 25-34 pg Mean Corpuscular Hemoglobin Concent 32.2 32-36 g/dl Platelet Count 126 130-400 K/uL Mean Platelet Volume 10.9 7.4-10.4 fL Neutrophils (%) (Auto) 64.1 % Lymphocytes (%) (Auto) 12.9 % Monocytes (%) (Auto) 17.9 % Eosinophils (%) (Auto) 4.5 % Basophils (%) (Auto) 0.3 % Neutrophils # (Auto) 3.96 1.4-6.5 K/uL Lymphocytes # (Auto) 0.80 1.2-3.4 K/uL Monocytes # (Auto) 1.11 0.11-0.59 K/uL Eosinophils # (Auto) 0.28 0-0.5 K/uL Basophils # (Auto) 0.02 0-0.2 K/uL RDW Standard Deviation 66.4 36.4-46.3 fL RDW Coefficient of Variation 16.9 11.5-14.5 % Immature Granulocyte % (Auto) 0.3 % Immature Granulocyte # (Auto) 0.02 0.00-0.02 K/uL Sodium Level 137 136-145 mmol/L Potassium Level 5.0 3.5-5.1 mmol/L Chloride Level 93 98-107 mmol/L Carbon Dioxide Level 40 21-32 mmol/L Anion Gap 4.0 3-11 mmol/L Blood Urea Nitrogen 25 7-18 mg/dl Creatinine 0.86 0.60-1.40 mg/dl Est Creatinine Clear Calc Drug Dose 61.6 ml/min Estimated GFR () 99.7 Estimated GFR (Non- 86.0 BUN/Creatinine Ratio 29.5 10-20 Random Glucose 80 70-99 mg/dl Calcium Level 8.5 8.5-10.1 mg/dl Magnesium Level 2.5 1.8-2.4 mg/dl
--- NOTE | 2017-08-21 11:51 | Discharge Summary ---
Discharge Summary Date of Service Aug 21, 2017. Discharge Summary Admission Date: Aug 17, 2017 at 21:08 Discharge Date: Aug 21, 2017 Discharge Disposition: Home Principal Diagnosis: ACUTE RT SIDED HEART FAILURE /COR PULMONALE Procedures: ECHO : * Small LV chamber size with severe concentric LVH. * D shaped septum consistent with significant RV pressure/volume overload. * Hyperdynamic LV systolic function, EF >70%. * No segmental left ventricular wall motion abnormalities are noted. * Grade I diastolic dysfunction. * The right ventricle is severely dilated. * The right ventricular systolic function is moderately reduced. * Moderate tricuspid regurgitation. * Severe right atrial enlargement. * Pulmonary hypertension is present with a PASP of [address] ABDOMEN /PELVIS : IMPRESSION: 1. Diffusely heterogeneous appearance of the liver with small left and trace right pleural effusions, small volume of intra-abdominal and intrapelvic ascites with moderate diffuse body wall edema. Body wall edema extends into the mons pubis region and upper scrotum without evidence of subcutaneous or deep tissue air to suggest fasciitis. 2. Fusiform aneurysmal relation of the infrarenal abdominal aorta, 4.0 x 4.4 cm for a length of 6.6 cm in craniocaudal dimension. Aneurysmal dilation also involves the bilateral common iliac arteries as above. 3. Cardiomegaly. 4. Several fat filled ventral abdominal wall hernias are noted. TESTICULAR USG : IMPRESSION: 1. No evidence of testicular torsion or epididymitis-orchitis. 2. Left varicocele. BILATERAL LOWER EXT USG : FINDINGS: Left: Common femoral vein: Patent. Femoral vein: Patent. Greater saphenous vein: Patent. Popliteal vein: Patent. Calf veins: Limited visualization secondary to subcutaneous edema. Other: Subcutaneous edema evidence by dilated lymphatics. Popliteal cyst noted. IMPRESSION: No evidence of deep venous thrombosis. Consultations: [facility] Medication Reconciliation New Medications: Furosemide (Lasix) 40 Mg Tab 40 MG PO afternoon PRN for leg swelling for 30 Days, #30 TAB Aspirin (Aspirin EC Low Dose) 81 Mg Ectab 81 MG PO QAM for 30 Days, #30 TABS 3 Refills Atorvastatin (Atorvastatin Calcium) 40 Mg Tab 40 MG PO QAM for 30 Days, #30 TAB 2 Refills Furosemide (Furosemide) 40 Mg Tab 40 MG PO QAM for 30 Days, #30 TAB 3 Refills Continued Medications: Atenolol (Atenolol) 25 Mg Tab 1 TAB PO HS, #30 Home O2 Therapy (Oxygen) Gas 2.5 LITER NA NIGHT Ipratropium [place] (Atrovent 0.02% Soln) 2.5 Ml Nebu 1 DOSE INH PRN Discontinued Medications: Furosemide (Lasix) 40 Mg Tab 20 MG PO DAILY, #30 Referrals At Discharge Follow up Referrals: Physician Referral - 08/24/17 with Ralph Leyva M.D.([facility]) Admission Information HPI (per Admitting provider): This is a 71 year old male with a PMH of severe COPD and chronic respiratory failure on 2L of O2, tobacco use disorder, right sided heart failure, cor pulmonale, AAA presents with significant lower extremity swelling as well as scrotal and penile swelling. He states that the swelling started worsening about 2 weeks ago and his scrotum became painful today. Was seen by PCP today in the office - was told to come to the hospital to rule out Raymond's gangrene. States that his only symptom in the past two weeks besides his lower extremity swelling was shortness of breath with exertion. He uses 2L of O2 chronically and still smokes. Denies fevers/chills, denies nausea/vomiting. Physical Exam (per Admitting): General Appearance: no apparent distress Head: normocephalic, atraumatic Eyes: EOMI ENT: + pertinent finding (hard of hearing) Neck: supple Respiratory/Chest: no respiratory distress, no accessory muscle use, + decreased breath sounds, + wheezing (diffuse end expiratory wheezing) Cardiovascular: regular rate, rhythm, no murmur Abdomen/GI: normal bowel sounds, non tender, soft Genitourinary - Male: + pertinent finding (+swelling of the penis and scrotum; ulceration on the scrotum with redness and warm to touch) Extremities/Musculoskelatal: no calf tenderness, normal capillary refill, + swelling (+3 pitting edema b/l LE), + pertinent finding Neurologic/Psych: 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 Acute on chronic Right Sided Heart Failure with preserved EF Cor Pulmonale patient with cor pulmonale due to significant lung disease uses Lasix 40mg daily at home presented with worsening swelling of the lower extremities, scrotum and penis got aggressive diuresis with IV Lasix and kcl supplements. echo severe dilated RV, moderately depressed right heart function, moderate TR; PUL. HTN 60mmhg cardiology on board and appreciate inputs Lasix changed to PO Lasix 40 mg daily asked to take additional Lasix 40 mg in afternoon as needed for lower extremity swelling vol status improved to baseline no SOB /REBOLLAR or orthopnea potassium supplement D/chasity as K level ~5 repeat Basic metabolic panel in 1 week stable to be discharged home with above diuretics regimen Scrotal Swelling resolved due to decompensated CHF , vol overload improved with diuresis scrotal USG -no evidence of testicular torsion, moderate hydrocele appreciate urology eval no evidence of infection D/c IV ABx Bifascicular Block Prolonged Qt interval new bifascicular block avoid Qt prolonging agents when possible monitor electrolytes f/u repeat ekg- QT improved Severe COPD Chronic Respiratory Failure improved after diuresis patient presents with worsening shortness of breath due to CHF respiratory status improved to baseline on 2 L home 02 Tobacco Use Disorder counseled on cessation-pt is interested to quit added nicotine patch Referral Form faxed for [place] FREE Quitline pt will follow up with Dr. Leyva (pt's PCP) to get Chantix or Zyban prescribed for him. DVT ppx subq heparin DISPOSITION discharge home today Medicine follow up with Dr Leyva at [facility] Total time spent on discharge = 40 MINS This includes examination of the patient, discharge planning, medication reconciliation, and communication with other providers. Discharge Instructions DI: CHF v4 Discharge Instructions Date of Service Aug 20, 2017. Admission Reason for Admission: Chf (Congestive Heart Failure) Discharge Discharge Diagnosis / Problem: ACUTE RT SIDED HEART FAILURE /COR PULMONALE Discharge Goals Goal(s): Decrease discomfort, Improve function, Increase independence, Improve disease control, Diagnostic testing, Therapeutic intervention Activity Recommendations Activity Limitations: resume your previous activity . Instructions / Follow-Up Instructions / Follow-Up HOSPITAL FOLLOW UP : 08/24/2017 12:30 PM Ralph Leyva MD Family Practice [facility] CARDIOLOGY FOLLOW UP : 08/28/2017 3:20 PM Saulo Pham, DO Cardiology, [facility] LAB WORK: BASIC METABOLIC PANEL IN 1 WEEK TAKE LASIX 40 MG DAILY IN AM CAN TAKE EXTRA 40 MG IN AFTERNOON NEEDED FOR INCREASED LEG SWELLING IT IS VERY IMPORTANT TO QUIT SMOKING Referral Form faxed for [place] FREE Quitline Follow up with Dr. Leyva to get prescription for Chantix or Zyban to help quit smoking Call your Primary Care doctor if any of the following symptoms or problems start or get worse: * Shortness of breath or difficulty breathing * Wake up at night short of breath * Chest pain * Cough * Swelling of your hands, feet, or legs * More fatigued or tired with your normal activity * Palpitations - sudden fast heart beats WEIGHT * Weigh yourself every morning after using the bathroom. * Use the same scale. * Wear the same amount of clothing. * Write your weight down on a chart. * Call your Primary Care doctor if you gain more than 2-3 pounds in 1-2 days. MEDICATIONS * Use this discharge instruction sheet for medication instructions. * Take your medications at the time your doctor ordered. * Do not skip a dose of your medicines. * If you miss a dose of medicine, take it as soon as possible, but DO NOT DOUBLE A DOSE. * Read your medicine information when you get home. * Know all of the side effects of your medicine. If in doubt, ask your pharmacist * Call your Primary Care doctor's office if you have any side effects. * Be sure all of your doctors know what medicine and herbs you take (including cold, flu, and herbal medicine). Take the following with you to your follow-up doctor appointments: * Weight Chart * Medication List * List of questions Do not drink excessive alcohol, beer or wine. Current Hospital Diet Patient's current hospital diet: AHA Diet (Heart Healthy), Low Sodium Diet (2gm Na) Discharge Diet Recommended Diet: AHA Diet (Heart Healthy), Low Sodium Diet (2gm Na) Fluid Restriction: 1500 ml (6 cups) Pending Studies Studies pending at discharge: no Medical Emergencies . Who to Call and When: Call 911 or go to the Emergency Room if: * If at any time you feel your situation is an emergency * You have tightness or pain in your chest that does not go away with rest or Nitroglycerin * You are very short of breath even with rest . Non-Emergent Contact Non-Emergency issues call your: Primary Care Provider . . "Provider Documentation" section prepared by Maribel Koehler. . VTE Core Measure Inpt VTE Proph given/why not?: Unfractionated heparin SQ Additional Copies To Ralph Leyva M.D.([facility]) Saulo Pham D.O.
[2017-08-21] MEDS ORDERED: VANCOMYCIN TROUGH ONE (15:30)
== END 2017-08-21 12:45 | disposition home or self-care (01) | DRG 292 ==
LOC: C.EDB 16:26 → C.2E 21:08 → ENRESERV 21:26
PROVIDERS: ADMIT Family Medicine; ATTEND Hospitalist
DX: I50.33 Acute on chronic diastolic (congestive) heart failure (principal); I45.2 Bifascicular block; J96.10 Chronic respiratory failure, unspecified whether with hypoxia or hypercapnia; I27.81 Cor pulmonale (chronic); N50.89 Other specified disorders of the male genital organs; I45.81 Long QT syndrome; J44.9 Chronic obstructive pulmonary disease, unspecified; H91.90 Unspecified hearing loss, unspecified ear; F17.200 Nicotine dependence, unspecified, uncomplicated; Z51.81 Encounter for therapeutic drug level monitoring; Z79.899 Other long term (current) drug therapy; Z99.81 Dependence on supplemental oxygen

== ENCOUNTER → 2017-08-17 | Outpatient (CLI) | payer OTHER ==
[~2017-08-17] MED LIST: ALBUAER; ASPEC81 PO; ATRINSX INH; FURO40TA3 PO; LPT40 PO; LSX40 PO; OXGN; POTA10CA28 PO; TNR25 PO; WARF2TAB PO; ZCR40 PO
--- NOTE | 2017-08-17 14:39 | DIAGNOSTIC IMAGING REPORT ---
AP STANDING VIEW OF BOTH KNEES; 3 VIEWS LEFT KNEE CLINICAL HISTORY: Left knee pain. FINDINGS: An AP standing view of both knees, with crosstable lateral, tunnel, and sunrise views of the left knee are compared to study dated 07/31/2014. The skeletal structures are osteopenic. No fracture is seen. There is advanced tricompartmental degenerative joint space narrowing, with near complete loss of the joint space in the medial and patellofemoral compartments. There is bony sclerosis in the medial compartment with mild lateral subluxation of the tibial plateau. There are large marginal osteophytes and small patellar enthesophytes. No osteochondral defect is suggested on the tunnel image. A large calcified fabella is observed. A large calcified joint body is suggested superiorly. There is a large joint effusion. Prepatellar soft tissue edema is noted. There is atherosclerotic calcification of the popliteal artery. Survey images of the right knee on the frontal view show mild to moderate joint space narrowing in both the medial and lateral compartments as well as soft tissue edema. IMPRESSION: 1. Large joint effusion and soft tissue swelling. No acute bony abnormality is seen in the left knee. 2. Osteopenia and advanced arthritic change as above. A large calcified joint body is suspected. This is similar in appearance to 2013 examination. Electronically signed by: Nikunj Parker M.D. 08/17/2017 2:37 PM Dictated Date/Time: 08/17/2017 2:34 PM
--- NOTE | 2017-08-17 14:46 | DIAGNOSTIC IMAGING REPORT ---
R PELVIS UNILATERAL HIP 1 VIEW CLINICAL HISTORY: 71 years-old Male presenting with S/P TOTAL RIGHT HIP ARTHROPLASTY. TECHNIQUE: Single frontal view the pelvis and frog-leg lateral view of the right hip were obtained. COMPARISON: 10/12/2014. FINDINGS: Total right hip arthroplasty. No malalignment. No hardware convocation. No acute fracture. Bony pelvis intact. Left hip joint congruent. IMPRESSION: Expected appearance of the total right hip arthroplasty. No acute osseous injury. Electronically signed by: Garret Martinez M.D. 08/17/2017 2:44 PM Dictated Date/Time: 08/17/2017 2:43 PM
== END | disposition home or self-care (01) ==
LOC: C.RDSM 17:12
PROVIDERS: ATTEND Physician Assistant
DX: G89.29 Other chronic pain (principal); Z96.649 Presence of unspecified artificial hip joint

== ENCOUNTER 2018-12-27 13:06 | Inpatient (IN) ==
[2018-12-27] MEDS ORDERED: CEFEPIME 2,000 MG in SYRINGE 7.5 ML IV STA (13:35)
[2018-12-27] MEDS ORDERED: ALBUT/IPRATROP 3MG/0.5MG NEB 3 ML VIAL NEB STA (13:35)
[2018-12-27] MEDS ORDERED: SODIUM CHLORIDE 0.9% 500 ML IV SCH (13:45)
[2018-12-27 13:46] LABS: Basophils # (auto) 0.02 K/uL (0-0.2); Basophils % (auto) 0.3 %; Eosinophils # (auto) 0.24 K/uL (0-0.5); Eosinophils % (auto) 3.1 %; Hematocrit (blood only) 52.7 % (42-52); Immature Granulocytes # (auto) 0.02 K/uL (0.00-0.02); Immature Granulocytes % (auto) 0.3 %; Lymphocytes # (auto) 1.39 K/uL (1.2-3.4); Lymphocytes % (auto) 17.9 %; Mean Corpuscular Hgb Conc 32.3 g/dL (32-36); Mean Corpuscular Volume 108.4 fL (80-100); Mean Platelet Volume 10.5 fL (7.4-10.4); Monocytes # (auto) 1.15 K/uL (0.11-0.59); Monocytes % (auto) 14.8 %; Neutrophils # (auto) 4.93 K/uL (1.4-6.5); Neutrophils % (auto) 63.6 %; Platelet Count 146 K/uL (130-400); RDW Coefficient of Variation 16.4 % (11.5-14.5); RDW Standard Deviation 66.6 fL (36.4-46.3); Red Blood Count 4.86 M/uL (4.7-6.1); White Blood Count 7.75 K/uL (4.8-10.8)
[2018-12-27 13:57] LABS: INR 1.2 (0.9-1.1); Partial Thromboplastin Ratio 0.9; Partial Thromboplastin Time 25.1 Seconds (21.0-31.0); Prothrombin Time 11.8 Seconds (9.0-12.0)
[2018-12-27 13:58] LABS: Albumin Level 2.9 gm/dl (3.4-5.0); BUN Creatinine Ratio 24.4 (10-20); Calcium 8.7 mg/dl (8.5-10.1); Creatinine Clr Calc Pharmacy 54.5 ml/min; Est GFR (African American) 87.1; Est GFR (Non-African American) 75.1; Potassium 3.7 mmol/L (3.5-5.1)
--- NOTE | 2018-12-27 14:00 | XRay Report ---
SINGLE VIEW CHEST CLINICAL HISTORY: Generalized weakness. FINDINGS: An AP, portable, upright chest radiograph is compared to study dated 08/17/2017. The examin ation is degraded by portable technique and patient rotation. The heart is enlarged and there is ath erosclerotic calcification of the thoracic aorta. The pulmonary vasculature is noncongested. Emphysem a and chronic interstitial thickening are similar to previous. There is mild elevation of left hemidi aphragm. Airspace consolidation is seen in the left mid to lower lung. No large pleural effusion or p neumothorax is seen. The skeletal structures are osteopenic. The bony thorax is grossly intact. IMPRESSION: 1. Cardiomegaly and emphysema. 2. Patchy airspace consolidation is seen in the left mid to lower lung. Correlate clinically for evid ence of pneumonia/aspiration pneumonitis. Radiographic follow-up to resolution is recommended. Electronically signed by: Nikunj Parker M.D. 12/27/2018 1:59 PM
[2018-12-27 14:04] LABS: Albumin Globulin Ratio 0.8 (0.9-2); Bilirubin,Total 0.9 mg/dl (0.2-1); Globulin 3.7 gm/dl (2.5-4.0); Total Protein 6.6 gm/dl (6.4-8.2); Troponin I 0.054 ng/ml (0-0.045)
[2018-12-27 14:21] LABS: RBC Morphology Unremarkable
[2018-12-27 14:26] LABS: Appearance Urine Clear (Clear); Bilirubin Urine Negative (Negative); Blood Urine Negative (Negative); Color Urine Yellow; Glucose Urine UA Negative (Negative); Ketones Urine Negative (Negative); Leukocyte Esterase Urine Negative (Negative); Nitrite Urine Negative (Negative); Protein Urine Negative (Negative); Specific Gravity Urine 1.012 (1.000-1.030); Urobilinogen Urine Negative (Negative); pH Urine 5.5 (4.5-7.5)
[2018-12-27] MEDS ORDERED: OPTIRAY 320 125ml IV PRN (14:45)
--- NOTE | 2018-12-27 15:04 | CT Scan Report ---
CT ANGIOGRAPHY OF THE CHEST, PULMONARY EMBOLUS PROTOCOL CLINICAL HISTORY: Shortness of breath. Chest pain. Evaluate for pulmonary embolus. COMPARISON STUDY: Chest radiograph August 17, 2017 and December 27, 2018. TECHNIQUE: Following IV administration of 119 mL of Optiray-320, helical axial images of the chest we re obtained utilizing the pulmonary embolus protocol. Maximal intensity projections and sagittal and coronal reformats were viewed on an independent 3D workstation. IV contrast was administered withou t complication. Automated exposure control was utilized for the study. A dose lowering technique wa s utilized adhering to the principles of ALARA. CT DOSE: 206.39 mGy.cm FINDINGS: No pulmonary emboli are identified although the segmental and subsegmental pulmonary arter ies are suboptimally assessed due to respiratory motion. The heart is moderately enlarged with signif icant dilatation of the right indeterminate right ventricle. There is straightening of the interventr icular septum. There is no pericardial effusion. There is a trace left pleural effusion. Multifocal c onsolidation within the left lung favors pneumonia. A few airspace opacities within the right lung ar e noted. Interlobular septal thickening. There is moderate emphysema. Secretions within the left main stem bronchus are noted but there is diffuse bronchial wall thickening. There is no pneumothorax. Bon y thorax is unremarkable. Lateral segment of the liver is enlarged. Reflux of contrast into the hepat ic veins and IVC is noted. These vessels appear mildly dilated. IMPRESSION: 1. No pulmonary emboli identified although segmental and subsegmental pulmonary arteries suboptimally assessed due to respiratory motion. 2. Consolidation within the left upper and lower lobes which favors multifocal pneumonia. A follow-up chest CT in one month to ensure resolution is recommended. A few additional airspace opacities withi n the right lung are also likely infectious. 3. Mild interstitial pulmonary edema. 4. Moderate cardiomegaly with preferential dilatation of the right atrium and right ventricle and dil atation of the main pulmonary artery which suggests pulmonary arterial hypertension with elevated rig ht heart pressures. 5. Moderate emphysema. Electronically signed by: Bishnu Mehta M.D. 12/27/2018 3:03 PM
[2018-12-27] MEDS ORDERED: ALBUT/IPRATROP 3MG/0.5MG NEB 3 ML VIAL NEB PRN (16:00)
--- NOTE | 2018-12-27 16:46 | Emergency Department Note ---
Entered by Smitha Murray acting as a scribe for Nikunj Camacho MD History of Present Illness General Chief complaint: Syncope Time Seen by Provider: 12/27/18 13:18 Source: patient and EMS Mode of arrival: EMS History of Present Illness Onset (ago): hour(s) less than 1 Location: head (Syncope) Pain Consistency: + other (Episode) Quality: + other (Syncope) Relieved By: not by medication (1L normal saline) Associated symptoms: + shortness of breath and + syncope Treatments prior to arrival: other (1L normal saline) The patient is a 73 year old male who presents to the Emergency Room with complaints of episode of syncope starting less than an hour [employer]. EMS reports that the patient was at [facility] and lost consciousness. They state he was unresponsive for about 2 minutes. They add that the patient received 1L normal saline [employer]. The patient reports that he went to [facility] this morning and was drinking coffee. He states that his coffee went down the wrong pipe and and he started coughting, that is the last thing he remembers. He notes that before he went to [facility] he felt normal. The patient reports that he does not feel any more short of breath than he usually does. He states that he uses 3 to 4L of oxygen at home via nasal cannula. He notes that he has a nebulizer that he uses when he feels very short of breath but that he did not use it [employer]. He adds that he sees Dr. Autumn Vicente PCP. Home Medications Home Medications Medication Instructions Recorded Confirmed Type aspirin [Aspirin Low Dose] 81 mg PO DAILY 12/27/18 12/27/18 History atenolol 25 mg PO DAILY 12/27/18 12/27/18 History atorvastatin 40 mg PO DAILY 12/27/18 12/27/18 History furosemide 40 mg PO DAILY 12/27/18 12/27/18 History Allergies Allergy/AdvReac Type Severity Reaction Status Date / Time No Known Drug Allergies Allergy Unknown NONE Unverified 12/27/18 14:32 Past Med/Surg History Medical History DJD (degenerative joint disease) of hip (Resolved 05/14/14) CHF (congestive heart failure) (Chronic) COPD with emphysema Cor pulmonale (chronic) History of abdominal aortic aneurysm Tobacco use disorder, continuous Social History Preferred Language: Barbadian Communication Ability: Effective Communication Ability Comment: 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 and A total of 10 systems reviewed and were otherwise negative Physical Exam Vital Signs Vital Signs - 24 hr 12/27/18 13:15 12/27/18 14:07 12/27/18 14:15 Temperature 36.5 C Temperature Source Oral Sepsis Recent Fever Within 48 Hours No Sepsis New/Unexplained Change in Mental Status No Sepsis Action Taken by Nursing No Action Required Pulse Rate 61 Pulse Rate [Right Apical] 54 L Pulse Rate from SpO2 Sensor Respiratory Rate 16 16 Respiratory Effort / Characteristics Respiratory Depth Respiratory Pattern Blood Pressure 84/53 L Blood Pressure [Right Arm] 102/63 Blood Pressure Mean 63 Blood Pressure Mean [Right Arm] 76 Pulse Oximetry 91 100 97 Oxygen Delivery Method Room Air Nasal Cannula Nebulizer Oxygen Flow Rate 4 12/27/18 15:30 12/27/18 16:00 12/27/18 16:30 Temperature Temperature Source Sepsis Recent Fever Within 48 Hours Sepsis New/Unexplained Change in Mental Status Sepsis Action Taken by Nursing Pulse Rate 58 L 59 L 61 Pulse Rate [Right Apical] Pulse Rate from SpO2 Sensor 59 L 59 L 61 Respiratory Rate 26 H 28 H 26 H Respiratory Effort / Characteristics Respiratory Depth Respiratory Pattern Blood Pressure 111/64 99/62 L 100/64 Blood Pressure [Right Arm] Blood Pressure Mean 79 74 76 Blood Pressure Mean [Right Arm] Pulse Oximetry 99 91 92 Oxygen Delivery Method Oxygen Flow Rate 12/27/18 16:48 12/27/18 17:07 12/27/18 18:40 Temperature Temperature Source Sepsis Recent Fever Within 48 Hours Sepsis New/Unexplained Change in Mental Status Sepsis Action Taken by Nursing Pulse Rate 61 58 L Pulse Rate [Right Apical] Pulse Rate from SpO2 Sensor Respiratory Rate 26 H Respiratory Effort / Characteristics Spontaneous SOB on Exertion Spontaneous SOB on Exertion Respiratory Depth Normal Respiratory Pattern Regular Agonal Tachypnea Blood Pressure 100/64 Blood Pressure [Right Arm] Blood Pressure Mean Blood Pressure Mean [Right Arm] Pulse Oximetry 92 Oxygen Delivery Method Room Air Nasal Cannula Nasal Cannula Oxygen Flow Rate 2 4 GENERAL: Patient is in no acute distress. HEENT: No acute trauma, normocephalic atraumatic, no nasal congestion, no scleral icterus. Dry mucous membranes. NECK: No stridor, no adenopathy, no meningismus, trachea is midline. LUNGS: Wheezing bilaterally with diminished breath sounds bilaterally. No crackles. HEART: Subtle systolic murmur with a regular rhythm and normal rate. ABDOMEN: Soft, nontender, bowel sounds positive, no hernias, no peritonitis. EXTREMITIES: No edema, full range of motion of all the joints without pain or difficulty, no signs for acute trauma. Upper extremity cyanosis to hands noted. NEUROLOGIC: Oriented x 3, no acute motor or sensory deficits, no focal weakness. SKIN: No rash, no jaundice, no diaphoresis. Course 1320: Past medical records reviewed. The patient was evaluated in room A12A, and a complete history and physical examination were performed. 1528: I reevaluated the patient at this time. 1530: I reviewed the patient's case with Dr. Prince Vicente [facility]. He will evaluate the patient for further management. Consultations Consultation #1: I reviewed the patient's case with Dr. Prince hadley. He will evaluate the patient for further management. Time: 15:30 Administered Medications Aspirin (Ecotrin Ectab) 81 mg PO DAILY DENNIS Stop: 01/26/19 17:51 Last Admin: 12/27/18 18:50 Dose: 81 mg Documented by: [id number] Methylprednisolone 40 mg/ (Syringe) 0.64 mls @ 1.5 mls/min IV Q8H DENNIS Stop: 01/26/19 15:59 Last Admin: 12/27/18 18:30 Dose: 1.5 mls/min Documented by: [id number] Discontinued Medications Albuterol (Duoneb) 3 ml NEB NOW STA Stop: 12/27/18 13:36 Last Admin: 12/27/18 14:13 Dose: 3 ml Documented by: [id number] Cefepime HCl 2,000 mg/ Syringe 20 mls @ 5.5 mls/min IV NOW STA Stop: 12/27/18 13:38 Last Admin: 12/27/18 14:26 Dose: 5.5 mls/min Documented by: [id number] Sodium Chloride (Nss) 500 mls @ 999 mls/hr IV .Q31M DENNIS Stop: 12/27/18 14:15 Last Infusion: 12/27/18 14:43 Dose: 0 mls/hr Documented by: [id number] Admin: 12/27/18 14:04 Dose: 999 mls/hr Documented by: [id number] Ioversol (Optiray 320 125ml) 119 ml IV ONCE PRN PRN Reason: Interaction Checking Stop: 12/31/18 14:44 Last Admin: 12/27/18 14:45 Dose: 119 ml Documented by: [id number] Medical Decision Making Differential Diagnosis Differentials include PR, aspiration, pneumonia, syncope, dehydration, dysrhythmia, PE and CHF among others. Medical Records Attestation: I reviewed the patient's medical records. Home Medications Current Medication List: was personally reviewed by me Laboratory Data Attestation: I reviewed the patient's lab results. Result diagrams: 12/27/18 12:20 12/27/18 12:20 Lab Results 12/27/18 12/27/18 12/27/18 Range/Units 12:20 12:20 12:20 WBC 7.75 (4.8-10.8) K/uL RBC 4.86 (4.7-6.1) M/uL Hgb 17.0 (14.0-18.0) g/dL Hct 52.7 H (42-52) % MCV 108.4 H (80-100) fL MCH 35.0 H (25-34) pg MCHC 32.3 (32-36) g/dL RDW Std Deviation 66.6 H (36.4-46.3) fL RDW Coeff of Karina 16.4 H (11.5-14.5) % Plt Count 146 (130-400) K/uL MPV 10.5 H (7.4-10.4) fL Immature Gran % (Auto) 0.3 % Neut % (Auto) 63.6 % Lymph % (Auto) 17.9 % [place] % (Auto) 14.8 % Eos % (Auto) 3.1 % Baso % (Auto) 0.3 % Immature Gran # (Auto) 0.02 (0.00-0.02) K/uL Neut # (Auto) 4.93 (1.4-6.5) K/uL Lymph # (Auto) 1.39 (1.2-3.4) K/uL [place] # (Auto) 1.15 H (0.11-0.59) K/uL Eos # (Auto) 0.24 (0-0.5) K/uL Baso # (Auto) 0.02 (0-0.2) K/uL RBC Morphology Unremarkable PT 11.8 (9.0-12.0) Seconds INR 1.2 H (0.9-1.1) APTT 25.1 (21.0-31.0) Seconds PTT Ratio 0.9 Sodium 140 (136-145) mmol/L Potassium 3.7 (3.5-5.1) mmol/L Chloride 96 L (98-107) mmol/L Carbon Dioxide 40 H (21-32) mmol/L Anion Gap 4.0 (3-11) BUN 24 H (7-18) mg/dl Creatinine 0.98 (0.6-1.4) mg/dl Est Cr Clr Drug Dosing 54.5 ml/min Est GFR ( Amer) 87.1 Est GFR (Non-Af Amer) 75.1 BUN/Creatinine Ratio 24.4 H (10-20) Glucose 130 H (70-99) mg/dl Lactate (0.4-2.0) mmol/L Calcium 8.7 (8.5-10.1) mg/dl Magnesium 2.0 (1.8-2.4) mg/dl Total Bilirubin 0.9 (0.2-1) mg/dl AST 42 H (15-37) U/L ALT 42 (12-78) U/L Alkaline Phosphatase 121 H (45-117) U/L Troponin I 0.054 H* (0-0.045) ng/ml Total Protein 6.6 (6.4-8.2) gm/dl Albumin 2.9 L (3.4-5.0) gm/dl Globulin 3.7 (2.5-4.0) gm/dl Albumin/Globulin Ratio 0.8 L (0.9-2) Urine Color Urine Appearance (Clear) Urine pH (4.5-7.5) Ur Specific [place] (1.000-1.030) Urine Protein (Negative) Urine Glucose (UA) (Negative) Urine Ketones (Negative) Urine Blood (Negative) Urine Nitrite (Negative) Urine Bilirubin (Negative) Urine Urobilinogen (Negative) Ur Leukocyte Esterase (Negative) 12/27/18 12/27/18 12/27/18 Range/Units 14:15 14:25 18:18 WBC (4.8-10.8) K/uL RBC (4.7-6.1) M/uL Hgb (14.0-18.0) g/dL Hct (42-52) % MCV (80-100) fL MCH (25-34) pg MCHC (32-36) g/dL RDW Std Deviation (36.4-46.3) fL RDW Coeff of Karina (11.5-14.5) % Plt Count (130-400) K/uL MPV (7.4-10.4) fL Immature Gran % (Auto) % Neut % (Auto) % Lymph % (Auto) % [place] % (Auto) % Eos % (Auto) % Baso % (Auto) % Immature Gran # (Auto) (0.00-0.02) K/uL Neut # (Auto) (1.4-6.5) K/uL Lymph # (Auto) (1.2-3.4) K/uL [place] # (Auto) (0.11-0.59) K/uL Eos # (Auto) (0-0.5) K/uL Baso # (Auto) (0-0.2) K/uL RBC Morphology PT (9.0-12.0) Seconds INR (0.9-1.1) APTT (21.0-31.0) Seconds PTT Ratio Sodium (136-145) mmol/L Potassium (3.5-5.1) mmol/L Chloride (98-107) mmol/L Carbon Dioxide (21-32) mmol/L Anion Gap (3-11) BUN (7-18) mg/dl Creatinine (0.6-1.4) mg/dl Est Cr Clr Drug Dosing ml/min Est GFR ( Amer) Est GFR (Non-Af Amer) BUN/Creatinine Ratio (10-20) Glucose (70-99) mg/dl Lactate 1.2 (0.4-2.0) mmol/L Calcium (8.5-10.1) mg/dl Magnesium (1.8-2.4) mg/dl Total Bilirubin (0.2-1) mg/dl AST (15-37) U/L ALT (12-78) U/L Alkaline Phosphatase (45-117) U/L Troponin I 0.065 H* (0-0.045) ng/ml Total Protein (6.4-8.2) gm/dl Albumin (3.4-5.0) gm/dl Globulin (2.5-4.0) gm/dl Albumin/Globulin Ratio (0.9-2) Urine Color Yellow Urine Appearance Clear (Clear) Urine pH 5.5 (4.5-7.5) Ur Specific [place] 1.012 (1.000-1.030) Urine Protein Negative (Negative) Urine Glucose (UA) Negative (Negative) Urine Ketones Negative (Negative) Urine Blood Negative (Negative) Urine Nitrite Negative (Negative) Urine Bilirubin Negative (Negative) Urine Urobilinogen Negative (Negative) Ur Leukocyte Esterase Negative (Negative) Imaging Data Radiologist's Impression: Radiology results as stated below per my review and the radiologist's interpretation: CT ANGIOGRAPHY OF THE CHEST, PULMONARY EMBOLUS PROTOCOL CLINICAL HISTORY: Shortness of breath. Chest pain. Evaluate for pulmonary embolus. COMPARISON STUDY: Chest radiograph August 17, 2017 and December 27, 2018. TECHNIQUE: Following IV administration of 119 mL of Optiray-320, helical axial images of the chest were obtained utilizing the pulmonary embolus protocol. Maximal intensity projections and sagittal and coronal reformats were viewed on an independent 3D workstation. IV contrast was administered without complication. Automated exposure control was utilized for the study. A dose lowering technique was utilized adhering to the principles of ALARA. CT DOSE: 206.39 mGy.cm FINDINGS: No pulmonary emboli are identified although the segmental and subsegmental pulmonary arteries are suboptimally assessed due to respiratory motion. The heart is moderately enlarged with significant dilatation of the right indeterminate right ventricle. There is straightening of the in terventricular septum. There is no pericardial effusion. There is a trace left pleural effusion. Multifocal consolidation within the left lung favors pneumonia. A few airspace opacities within the right lung are noted. Interlobular septal thickening. There is moderate emphysema. Secretions within the left mainstem bronchus are noted but there is diffuse bronchial wall thickening. There is no pneumothorax. Bony thorax is unremarkable. Lateral segment of the liver is enlarged. Reflux of contrast into the hepatic veins and IVC is noted. These vessels appear mildly dilated. IMPRESSION: 1. No pulmonary emboli identified although segmental and subsegmental pulmonary arteries suboptimally assessed due to respiratory motion. 2. Consolidation within the left upper and lower lobes which favors multifocal pneumonia. A follow-up chest CT in one month to ensure resolution is recommended. A few additional airspace opacities within the right lung are also likely infectious. 3. Mild interstitial pulmonary edema. 4. Moderate cardiomegaly with preferential dilatation of the right atrium and right ventricle and dilatation of the main pulmonary artery which suggests pulmonary arterial hypertension with elevated right heart pressures. 5. Moderate emphysema. Electronically signed by: Bishnu Mehta M.D. 12/27/2018 3:03 PM SINGLE VIEW CHEST CLINICAL HISTORY: Generalized weakness. FINDINGS: An AP, portable, upright chest radiograph is compared to study dated 08/17/2017. The examination is degraded by portable technique and patient rotation. The heart is enlarged and there is atherosclerotic calcification of the thoracic aorta. The pulmonary vasculature is noncongested. Emphysema and chronic interstitial thickening are similar to previous. There is mild elevation of left hemidiaphragm. Airspace consolidation is seen in the left mid to lower lung. No large pleural effusion or pneumothorax is seen. The skeletal structures are osteopenic. The bony thorax is grossly intact. IMPRESSION: 1. Cardiomegaly and emphysema. 2. Patchy airspace consolidation is seen in the left mid to lower lung. Correlate clinically for evidence of pneumonia/aspiration pneumonitis. Radiographic follow-up to resolution is recommended. Electronically signed by: Nikunj Parker M.D. 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 Left ventricular hypertrophy.), + 1st degree AV block, + RBBB and + T-wave inversion (Diffusely); no ST elevation Comparison ECG Date: from (08/18/17) Change: the following changes noted ( Criteria for old inferior infarct are now present but T wave changes are similar.) Blood Pressure Blood Pressure Findings: Normal blood pressure Blood Pressure Disposition: further management by hospitalist [facility] Narrative There is no leukocytosis or concerning anemia. No concerning coagulopathy. Renal panel testing shows a higher CO2, the patient has a history of this. No electrolyte abnormality requiring correction. Lactic acid level was not elevated making sepsis less likely. There were a few scattered liver enzyme elevations. The bilirubin was not elevated. EKG shows a sinus rhythm with multiple changes however, the EKG looks similar to previous EKGs. Cardiac enzyme testing does show a slight troponin elevation, this could be consistent with PR or possibly mismatch. Blood cultures are pending. Urinalysis does not show infection. Chest film suggests a left sided pneumonia. No pneumothorax or CHF. Chest CT does not show PE, a left-sided pneumonia was seen. The patient presented hypoxic, cyanotic, hypotensive. He had suffered a syncopal spell while drinking coffee, he began to feel like he had aspirated the coffee, began coughing and then passed out. He did lose his urinary continence. Since treatment here in the ED, the patient does feel improved. He did receive IV saline, he was given a DuoNeb, IV cefepime. He was maintained on nasal cannula O2. His cyanosis resolved. His hypotension resolved. I do think the patient requires a hospital stay. He has pneumonia and may have aspirated.. This has flared his COPD. I did speak to the patient and case specialist. The on-call hospitalist was consulted. Impression & Plan Hypoxia, Hypotension, Syncope, Pneumonia Critical Care Time I have personally spent greater than 35 minutes of critical care time in the direct management of this patient. This includes bedside care, interpretation of diagnostic studies, and testing, discussion with consultants, patient, and family members, and other required patient management activities. This 35 mi nutes is in excess of all separately billable procedures. Critical Care Time: Yes Total Critical Care Time: 35 Discharge Plan Visit Data *Final* Discharge Date/Time: 12/27/18 16:48 Chief Complaint: Syncope ED Provider: Nikunj Camacho Discharge Problem: Hypoxia, Hypotension, Syncope, Pneumonia Patient Disposition: Admitted As Inpatient Discharge Instructions Interventions: ED Discharge Assessment Last Done: 12/27/18 16:48 Discharge Problem: Hypotension Qualifiers: Hypotension type: unspecified hypotension type Qualified Code(s): I95.9 - Hypotension, unspecified Syncope Qualifiers: Syncope type: unspecified Qualified Code(s): R55 - Syncope and collapse Pneumonia Qualifiers: Pneumonia type: due to unspecified organism Laterality: left Lung location: lower lobe of lung Qualified Code(s): J18.1 - Lobar pneumonia, unspecified organism The scribe's documentation has been prepared under my direction and personally reviewed by me in its entirety. I confirm that the note above accurately reflects all work, treatment, procedures, and medical decision making performed by me.
--- NOTE | 2018-12-27 16:49 | History & Physical Report ---
Date of Service December 27, 2018 Assessment & Plan (1) Syncope: Likely secondary to bouts of cough following aspiration while drinking coffee We will admit to telemetry unit Rule out possible causes of syncope including arrhythmia and/or carotid stenosis Doubt any seizure activity (2) Pneumonia: Multilobar pneumonia Seems to be secondary to aspiration Could be community-acquired as well Cefepime was started in the emergency room and will continue Like to change to oral Augmentin on discharge Present on Admission?: Yes (3) COPD exacerbation: History of COPD with ongoing smoking Will start Solu-Medrol and nebulized bronchodilator Advised to quit smoking (4) CHF (congestive heart failure): History of diastolic heart failure with cor pulmonale No evidence of any fluid overload as of now We will hold off Lasix now (5) Hypoxia: Noted to be cyanotic in the field following coughing spell and syncope Requiring oxygen to maintain saturation Has been on home oxygen at night only DVT prophylaxis Subcu heparin CODE STATUS Discussed with the patient and he will be DNR History of Present Illness Chief Complaint: Syncope and collapse Primary Care Provider: Ralph Leyva MD Is a 73-year-old male with significant past medical history including severe COPD on home oxygen at night, history of right-sided heart failure with cor pulmonale, chronic hypoxic respiratory failure, tobacco use disorder and history of abdominal aortic aneurysm apparently has had syncope and collapsed while he was [place] coffee [place]. He denies any recent cough or increasing shortness of breath, no recent history of fever and no chills and did not have any chest pain and/or palpitation before the episode. He denied to hav e any blurred vision, any numbness or tingling or any weakness involving any side of the body before the episode as well. He went hunting and while he was drinking coffee he started to have bouts of cough and following that passed out. No seizure activity reported but he peed during the process. He was out for about 1-2 minutes when he was brought into the ER by ambulance. He was cyanotic to begin with with low blood pressure but the color normalized with administration of oxygen. In the ER is still hypoxic and relieving test showed that he has left mid and lower lobe pneumonia with mildly mildly elevated troponin. He did not have any pulmonary embolism. He was admitted to telemetry unit for continuation of care. Allergies Allergy/AdvReac Type Severity Reaction Status Date / Time No Known Drug Allergies Allergy Unknown NONE Unverified 12/27/18 14:32 Home Medications Home Medications Medication Instructions Recorded Confirmed Type aspirin [Aspirin Low Dose] 81 mg PO DAILY 12/27/18 12/27/18 History atenolol 25 mg PO DAILY 12/27/18 12/27/18 History atorvastatin 40 mg PO DAILY 12/27/18 12/27/18 History furosemide 40 mg PO DAILY 12/27/18 12/27/18 History Past Med/Surg History Medical History DJD (degenerative joint disease) of hip (Resolved 05/14/14) CHF (congestive heart failure) (Chronic) COPD with emphysema Cor pulmonale (chronic) History of abdominal aortic aneurysm Tobacco use disorder, continuous Social History Smoking Status: Current every day smoker Review of Systems All systems reviewed & are unremarkable except as noted in HPI & below Physical Exam Vital Signs (Past 24 Hours): Last Vital Signs Temp 36.5 C 12/27/18 13:15 Pulse 58 L 12/27/18 15:30 Resp 26 H 12/27/18 15:30 BP 111/64 12/27/18 15:30 Pulse Ox 99 12/27/18 15:30 Physical Exam: Moderate shortness of breath at rest Constitutional: + acute distress (Shortness of breath), + ill appearing and + thin Eyes: PERRL, conjunctivae normal, anicteric sclerae ENMT: external ear and nose normal, oropharynx normal Respiratory: + respiratory distress (Moderate respiratory distress), + uses accessory muscles, + cough and + tachypneic Auscultation: + diminished lung sounds and + wheezes (Bilateral) Cardiovascular: Rate/Rhythm: regular rate and regular rhythm Heart Sounds: normal S1 and normal S2 Gastrointestinal (Abdomen): normal bowel sounds, soft, nontender, no hepatosplenomegaly Neurologic: Alert, awake and oriented x3. Generally weak but no focal sensory and motor deficit appreciated Results & Data Laboratory Results Short CBC 12/27/18 Range/Units 12:20 WBC 7.75 (4.8-10.8) K/uL Hgb 17.0 (14.0-18.0) g/dL Hct 52.7 H (42-52) % Plt Count 146 (130-400) K/uL BMP 12/27/18 12:20 Sodium 140 Potassium 3.7 Chloride 96 L Carbon Dioxide 40 H BUN 24 H Creatinine 0.98 Glucose 130 H Calcium 8.7 Cardiac Enzymes 12/27/18 Range/Units 12:20 Troponin I 0.054 H* (0-0.045) ng/ml Liver Function 12/27/18 Range/Units 12:20 Total Bilirubin 0.9 (0.2-1) mg/dl AST 42 H (15-37) U/L ALT 42 (12-78) U/L Alkaline Phosphatase 121 H (45-117) U/L Albumin 2.9 L (3.4-5.0) gm/dl Urine 12/27/18 Range/Units 14:15 Urine Color Yellow Urine Appearance Clear (Clear) Urine pH 5.5 (4.5-7.5) Ur Specific [place] 1.012 (1.000-1.030) Urine Protein Negative (Negative) Urine Glucose (UA) Negative (Negative) Medications Administered Current Inpatient Medications Albuterol (Duoneb) 3 ml NEB Q4R PRN PRN Reason: Shortness Of Breath Or Wheezing Stop: 01/26/19 15:59 Fluticasone Propionate (Flovent Hfa 220mcg) 2 puffs INH BID DENNIS Stop: 01/26/19 20:59 Heparin Sodium (Porcine) (Heparin Sodium (Porcine)) 5,000 units SQ Q12 DENNIS Stop: 01/26/19 20:59 Methylprednisolone 40 mg/ (Syringe) 0.64 mls @ 1.5 mls/min IV Q8H DENNIS Stop: 01/26/19 15:59 Cefepime HCl 2,000 mg/ Syringe 20 mls @ 5.5 mls/min IV Q12H DENNIS Stop: 01/03/19 16:14 Ioversol (Optiray 320 125ml) 119 ml IV ONCE PRN PRN Reason: Interaction Checking Stop: 12/31/18 14:44 Last Admin: 12/27/18 14:45 Dose: 119 ml Documented by: (1) Syncope Syncope type: unspecified Qualified Code(s): R55 - Syncope and collapse (2) Pneumonia Laterality: left Lung location: lower lobe of lung Pneumonia type: due to unspecified organism Qualified Code(s): J18.1 - Lobar pneumonia, unspecified organism
--- NOTE | 2018-12-27 17:48 | Ultrasound Report ---
CAROTID ARTERY ULTRASOUND CLINICAL HISTORY: r/o obstruction. Syncope. COMPARISON STUDY: None. TECHNIQUE: Real-time, grayscale, and color Doppler sonography of the carotid and vertebral arteries w as performed. Images were viewed in the transverse and longitudinal planes. FINDINGS: There is moderate atherosclerotic plaque. Velocity measurements are listed below. COMMON CAROTID PEAK SYSTOLIC VELOCITY (CM/S): RIGHT 60 LEFT 89 ICA PEAK SYSTOLIC VELOCITY (CM/S): RIGHT 88 LEFT 85 Systolic ratios between the internal to common carotid arteries are normal. Antegrade flow is seen in the vertebral arteries. The external carotid arteries are patent. Blood pressures could not obtained in this patient due to IV. IMPRESSION: Moderate atherosclerotic plaque without evidence of a hemodynamically significant stenos is. Electronically signed by: Bishnu Mehta M.D. 12/27/2018 5:46 PM
[2018-12-27] MEDS: methylPREDNISolone 40 MG in SYRINGE 0 ML IV SCH (18:30)
[2018-12-27] MEDS: ASPIRIN 81 MG ECTAB PO SCH (18:50)
[2018-12-27] MEDS: FLUTICASONE HFA 220 MCG INHALER INH SCH (21:01)
[2018-12-27] MEDS: HEPARIN SOD 5,000 UNIT/0.5 ML VIAL SQ SCH (21:01)
[2018-12-28] MEDS: methylPREDNISolone 40 MG in SYRINGE 0 ML IV SCH ×3 (02:09→17:41)
[2018-12-28] MEDS: CEFEPIME 2,000 MG in SYRINGE 7.5 ML IV SCH ×2 (02:09→14:54)
[2018-12-28 07:21] LABS: Hemoglobin 16.4 g/dL (14.0-18.0); Immature Granulocytes # (auto) 0.01 K/uL (0.00-0.02); Immature Granulocytes % (auto) 0.2 %; Lymphocytes # (auto) 0.36 K/uL (1.2-3.4); Lymphocytes % (auto) 8.8 %; Mean Corpuscular Hgb Conc 31.5 g/dL (32-36); Mean Corpuscular Volume 109.9 fL (80-100); Mean Platelet Volume 9.9 fL (7.4-10.4); Monocytes # (auto) 0.08 K/uL (0.11-0.59); Neutrophils # (auto) 3.62 K/uL (1.4-6.5); Platelet Count 122 K/uL (130-400); RDW Coefficient of Variation 16.4 % (11.5-14.5); RDW Standard Deviation 68.1 fL (36.4-46.3); Red Blood Count 4.73 M/uL (4.7-6.1); White Blood Count 4.07 K/uL (4.8-10.8)
[2018-12-28 07:59] LABS: Macrocytosis Present
[2018-12-28 08:12] LABS: BUN Creatinine Ratio 21.9 (10-20); Calcium 8.4 mg/dl (8.5-10.1); Creatinine Clr Calc Pharmacy 52.4 ml/min; Est GFR (African American) 82.9; Est GFR (Non-African American) 71.6; Magnesium 2.1 mg/dl (1.8-2.4); Phosphorus 4.6 mg/dl (2.5-4.9); Potassium 4.5 mmol/L (3.5-5.1)
[2018-12-28] MEDS: HEPARIN SOD 5,000 UNIT/0.5 ML VIAL SQ SCH ×2 (08:53→20:52)
[2018-12-28] MEDS: FLUTICASONE HFA 220 MCG INHALER INH SCH ×2 (08:53→20:53)
[2018-12-28] MEDS: ASPIRIN 81 MG ECTAB PO SCH (08:55)
[2018-12-28] MEDS: ATORVASTATIN 40 MG TAB PO SCH (08:55)
[2018-12-28] MEDS: ATENOLOL 25 MG TABLET PO SCH (08:55)
--- NOTE | 2018-12-28 12:07 | Hospitalist Progress Note ---
Date of Service December 28, 2018 Assessment & Plan (1) Syncope: Likely secondary to bouts of cough following aspiration while drinking coffee We will admit to telemetry unit Rule out possible causes of syncope including arrhythmia and/or carotid stenosis Doubt any seizure activity Carotid ultrasound did not show any significant stenosis Echo has been pending No more syncopal episode (2) Pneumonia: Multilobar pneumonia Seems to be secondary to aspiration Could be community-acquired as well Cefepime was started in the emergency room and will continue Like to change to oral Augmentin on discharge Blood cultures pending Clinically better and will continue current antibiotic (3) COPD exacerbation: History of COPD with ongoing smoking Will start Solu-Medrol and nebulized bronchodilator Advised to quit smoking No more cyanosis We will need to a step O2 saturation before discharge (4) CHF (congestive heart failure): History of diastolic heart failure with cor pulmonale No evidence of any fluid overload as of now We will hold off Lasix now No evidence of overt CHF (5) Hypoxia: Noted to be cyanotic in the field following coughing spell and syncope Requiring oxygen to maintain saturation Has been on home oxygen at night only DVT prophylaxis Subcu heparin CODE STATUS Discussed with the patient and he will be DNR Subjective The patient was seen and examined in presence of the son Admitted yesterday with COPD exacerbation and aspiration pneumonia with syncope secondary to bouts of cough Clinically a lot better today No shortness of breath at rest Saturation is maintained on 2 L of nasal cannula oxygen Physical Exam Vital Signs (Past 24 Hours): Last Vital Signs Temp 36.6 C 12/28/18 11:05 Pulse 53 L 12/28/18 11:05 Resp 20 12/28/18 11:05 BP 109/67 12/28/18 11:05 Pulse Ox 89 L 12/28/18 11:05 Physical Exam: Minimal distress at rest Constitutional: + ill appearing and + thin Eyes: PERRL, conjunctivae normal, anicteric sclerae ENMT: external ear and nose normal, oropharynx normal Respiratory: + respiratory distress (Minimal distress at rest), + uses accessory muscles, + cough and + tachypneic Auscultation: + diminished lung sounds and + wheezes (Bilateral) Cardiovascular: Rate/Rhythm: regular rate and regular rhythm Heart Sounds: normal S1 and normal S2 Gastrointestinal (Abdomen): normal bowel sounds, soft, nontender, no hepatosplenomegaly Musculoskeletal: No acute arthritis in any of the joints Neurologic: Alert, awake and oriented x3 Results & Data Laboratory Results Short CBC 12/27/18 12/28/18 Range/Units 12:20 07:02 WBC 7.75 4.07 L (4.8-10.8) K/uL Hgb 17.0 16.4 (14.0-18.0) g/dL Hct 52.7 H 52.0 (42-52) % Plt Count 146 122 L (130-400) K/uL BMP 12/27/18 12/28/18 12:20 07:02 Sodium 140 142 Potassium 3.7 4.5 D Chloride 96 L 102 Carbon Dioxide 40 H 41 H* BUN 24 H 22 H Creatinine 0.98 1.02 Glucose 130 H 122 H Calcium 8.7 8.4 L Cardiac Enzymes 12/27/18 12/27/18 12/28/18 Range/Units 12:20 18:18 00:13 Troponin I 0.054 H* 0.065 H* 0.056 H* (0-0.045) ng/ml Liver Function 12/27/18 Range/Units 12:20 Total Bilirubin 0.9 (0.2-1) mg/dl AST 42 H (15-37) U/L ALT 42 (12-78) U/L Alkaline Phosphatase 121 H (45-117) U/L Albumin 2.9 L (3.4-5.0) gm/dl Urine 12/27/18 Range/Units 14:15 Urine Color Yellow Urine Appearance Clear (Clear) Urine pH 5.5 (4.5-7.5) Ur Specific [place] 1.012 (1.000-1.030) Urine Protein Negative (Negative) Urine Glucose (UA) Negative (Negative) Medications Administered Current Inpatient Medications Albuterol (Duoneb) 3 ml NEB Q4R PRN PRN Reason: Shortness Of Breath Or Wheezin Stop: 01/26/19 15:59 Aspirin (Ecotrin Ectab) 81 mg PO DAILY [facility] Stop: 01/26/19 17:51 Last Admin: 12/28/18 08:55 Dose: 81 mg Documented by: Atenolol (Tenormin) 25 mg PO DAILY [facility] Stop: 01/27/19 08:59 Last Admin: 12/28/18 08:55 Dose: 25 mg Documented by: Atorvastatin Calcium (Lipitor) 40 mg PO DAILY [facility] Stop: 01/27/19 08:59 Last Admin: 12/28/18 08:55 Dose: 40 mg Documented by: Fluticasone Propionate (Flovent Hfa 220mcg) 2 puffs INH BID [facility] Stop: 01/26/19 20:59 Last Admin: 12/28/18 08:53 Dose: 2 puffs Documented by: Heparin Sodium (Porcine) (Heparin Sodium (Porcine)) 5,000 units SQ Q12 [facility] Stop: 01/26/19 20:59 Last Admin: 12/28/18 08:53 Dose: 5,000 units Documented by: Methylprednisolone 40 mg/ (Syringe) 0.64 mls @ 1.5 mls/min IV Q8H [facility] Stop: 01/26/19 15:59 Last Admin: 12/28/18 02:09 Dose: 1.5 mls/min Documented by: Cefepime HCl 2,000 mg/ Syringe 20 mls @ 5.5 mls/min IV Q12H [facility] Stop: 12/31/18 23:59 Last Admin: 12/28/18 02:09 Dose: 5.5 mls/min Documented by: (1) Syncope Syncope type: unspecified Qualified Code(s): R55 - Syncope and collapse (2) Pneumonia Laterality: left Lung location: lower lobe of lung Pneumonia type: due to unspecified organism Qualified Code(s): J18.1 - Lobar pneumonia, unspecified organism
[2018-12-28] MEDS: POLYETHYLENE (MIRALAX) 17 GM PACK PO PRN (21:33)
[2018-12-29] MEDS: CEFEPIME 2,000 MG in SYRINGE 7.5 ML IV SCH ×2 (03:04→13:38)
[2018-12-29] MEDS: methylPREDNISolone 40 MG in SYRINGE 0 ML IV SCH ×3 (03:04→17:10)
[2018-12-29 07:18] LABS: Hematocrit (blood only) 47.5 % (42-52); Hemoglobin 14.9 g/dL (14.0-18.0); Immature Granulocytes # (auto) 0.03 K/uL (0.00-0.02); Immature Granulocytes % (auto) 0.3 %; Lymphocytes # (auto) 0.42 K/uL (1.2-3.4); Lymphocytes % (auto) 3.6 %; Mean Corpuscular Hgb Conc 31.4 g/dL (32-36); Mean Platelet Volume 10.1 fL (7.4-10.4); Monocytes # (auto) 0.76 K/uL (0.11-0.59); Monocytes % (auto) 6.4 %; Neutrophils # (auto) 10.58 K/uL (1.4-6.5); Neutrophils % (auto) 89.7 %; Platelet Count 117 K/uL (130-400); RDW Coefficient of Variation 16.2 % (11.5-14.5); RDW Standard Deviation 66.6 fL (36.4-46.3); Red Blood Count 4.28 M/uL (4.7-6.1); White Blood Count 11.79 K/uL (4.8-10.8)
[2018-12-29 07:37] LABS: Macrocytosis Present
[2018-12-29 07:59] LABS: BUN Creatinine Ratio 24.5 (10-20); Calcium 7.9 mg/dl (8.5-10.1); Est GFR (African American) 98.8; Est GFR (Non-African American) 85.2; Magnesium 2.3 mg/dl (1.8-2.4); Potassium 4.8 mmol/L (3.5-5.1)
[2018-12-29] MEDS: ATENOLOL 25 MG TABLET PO SCH (08:11)
[2018-12-29] MEDS: FLUTICASONE HFA 220 MCG INHALER INH SCH ×2 (08:11→20:22)
[2018-12-29] MEDS: ASPIRIN 81 MG ECTAB PO SCH (08:11)
[2018-12-29] MEDS: ATORVASTATIN 40 MG TAB PO SCH (08:11)
[2018-12-29] MEDS: HEPARIN SOD 5,000 UNIT/0.5 ML VIAL SQ SCH ×2 (08:28→20:22)
--- NOTE | 2018-12-29 10:33 | XRay Report ---
XR chest 2V routine CLINICAL HISTORY: Pneumonia. COMPARISON STUDY: Chest radiograph and chest CT December 27, 2018. FINDINGS: Extensive left hemithorax airspace opacity is noted with volume loss. This has progressed. There is no pneumothorax. There may be a small left pleural effusion. Cardiomegaly is noted. Mild pul monary edema is present. IMPRESSION: 1. Progression of extensive left lung airspace opacity with volume loss which favors worsening pneumo soniya. 2. Cardiomegaly with mild pulmonary edema. 3. Trace left pleural effusion. Electronically signed by: Bishnu Mehta M.D. 12/29/2018 10:31 AM
--- NOTE | 2018-12-29 12:01 | Hospitalist Progress Note ---
Date of Service December 29, 2018 Assessment & Plan (1) Syncope: Likely secondary to bouts of cough following aspiration while drinking coffee We will admit to telemetry unit Rule out possible causes of syncope including arrhythmia and/or carotid stenosis Doubt any seizure activity Carotid ultrasound did not show any significant stenosis Echo has been pending No more syncopal episode (2) Pneumonia: Multilobar pneumonia Seems to be secondary to aspiration Could be community-acquired as well Cefepime was started in the emergency room and will continue Like to change to oral Augmentin on discharge Blood cultures pending Clinically better and will continue current antibiotic We will change antibiotic to oral Augmentin and finish the course for 10 days (3) COPD exacerbation: History of COPD with ongoing smoking Will start Solu-Medrol and nebulized bronchodilator Advised to quit smoking No more cyanosis We will need to a step O2 saturation before discharge PT and OT evaluation and to a step O2 saturation tomorrow before discharge (4) CHF (congestive heart failure): History of diastolic heart failure with cor pulmonale No evidence of any fluid overload as of now We will hold off Lasix now No evidence of overt CHF (5) Hypoxia: Noted to be cyanotic in the field following coughing spell and syncope Requiring oxygen to maintain saturation Has been on home oxygen at night only May need oxygen during daytime and with exertion DVT prophylaxis Subcu heparin CODE STATUS Discussed with the patient and he will be DNR Subjective The patient was seen and examined in presence of the son Admitted yesterday with COPD exacerbation and aspiration pneumonia with syncope secondary to bouts of cough Clinically a lot better today No shortness of breath at rest Saturation is maintained on 2 L of nasal cannula oxygen 12/29 Remains stable in bed without any symptoms of shortness of breath Denies any cough and/or sputum production No abdominal pain nausea and/or vomiting Physical Exam Vital Signs (Past 24 Hours): Last Vital Signs Temp 36.6 C 12/29/18 11:39 Pulse 52 L 12/29/18 11:39 Resp 20 12/29/18 11:39 BP 134/71 12/29/18 11:39 Pulse Ox 94 12/29/18 11:39 Physical Exam: No apparent distress at rest Constitutional: + ill appearing and + thin Eyes: PERRL, conjunctivae normal, anicteric sclerae ENMT: external ear and nose normal, oropharynx normal Respiratory: + respiratory distress (Minimal respiratory distress at rest), + cough and + tachypneic Auscultation: + diminished lung sounds and + wheezes (Bilateral) Cardiovascular: Rate/Rhythm: regular rate and regular rhythm Heart Sounds: normal S1 and normal S2 Gastrointestinal (Abdomen): normal bowel sounds, soft, nontender, no hepatosplenomegaly Musculoskeletal: No acute arthritis in any of the joints Neurologic: Alert, awake and oriented x3 Results & Data Laboratory Results Short CBC 12/29/18 Range/Units 06:41 WBC 11.79 H (4.8-10.8) K/uL Hgb 14.9 (14.0-18.0) g/dL Hct 47.5 (42-52) % Plt Count 117 L (130-400) K/uL BMP 12/29/18 06:41 Sodium 139 Potassium 4.8 Chloride 98 Carbon Dioxide 41 H* BUN 21 H Creatinine 0.85 Glucose 130 H Calcium 7.9 L Medications Administered Current Inpatient Medications Albuterol (Duoneb) 3 ml NEB Q4R PRN PRN Reason: Shortness Of Breath Or Wheezin Stop: 01/26/19 15:59 Aspirin (Ecotrin Ectab) 81 mg PO DAILY [facility] Stop: 01/26/19 17:51 Last Admin: 12/29/18 08:11 Dose: 81 mg Documented by: Atenolol (Tenormin) 25 mg PO DAILY [facility] Stop: 01/27/19 08:59 Last Admin: 12/29/18 08:11 Dose: 25 mg Documented by: Atorvastatin Calcium (Lipitor) 40 mg PO DAILY [facility] Stop: 01/27/19 08:59 Last Admin: 12/29/18 08:11 Dose: 40 mg Documented by: Fluticasone Propionate (Flovent Hfa 220mcg) 2 puffs INH BID [facility] Stop: 01/26/19 20:59 Last Admin: 12/29/18 08:11 Dose: 2 puffs Documented by: Heparin Sodium (Porcine) (Heparin Sodium (Porcine)) 5,000 units SQ Q12 [facility] Stop: 01/26/19 20:59 Last Admin: 12/29/18 08:28 Dose: 5,000 units Documented by: Methylprednisolone 40 mg/ (Syringe) 0.64 mls @ 1.5 mls/min IV Q8H [facility] Stop: 01/26/19 15:59 Last Admin: 12/29/18 10:11 Dose: 1.5 mls/min Documented by: Cefepime HCl 2,000 mg/ Syringe 20 mls @ 5.5 mls/min IV Q12H [facility] Stop: 12/31/18 23:59 Last Admin: 12/29/18 03:04 Dose: 5.5 mls/min Documented by: Polyethylene Glycol (Miralax Powder Packet) 17 gm PO DAILY PRN PRN Reason: Constipation Stop: 01/27/19 21:04 Last Admin: 12/28/18 21:33 Dose: 17 gm Documented by: (1) Syncope Syncope type: unspecified Qualified Code(s): R55 - Syncope and collapse (2) Pneumonia Laterality: left Lung location: lower lobe of lung Pneumonia type: due to unspecified organism Qualified Code(s): J18.1 - Lobar pneumonia, unspecified or ganism
[2018-12-29] MEDS: POLYETHYLENE (MIRALAX) 17 GM PACK PO PRN (20:24)
[2018-12-30] MEDS: CEFEPIME 2,000 MG in SYRINGE 7.5 ML IV SCH ×2 (02:33→13:34)
[2018-12-30] MEDS: methylPREDNISolone 40 MG in SYRINGE 0 ML IV SCH ×3 (02:33→17:34)
[2018-12-30 07:24] LABS: Hematocrit (blood only) 51.2 % (42-52); Hemoglobin 15.4 g/dL (14.0-18.0); Mean Corpuscular Hgb Conc 30.1 g/dL (32-36); Mean Platelet Volume 10.2 fL (7.4-10.4); Platelet Count 120 K/uL (130-400); RDW Coefficient of Variation 15.9 % (11.5-14.5); RDW Standard Deviation 66.2 fL (36.4-46.3); Red Blood Count 4.53 M/uL (4.7-6.1); White Blood Count 9.59 K/uL (4.8-10.8)
[2018-12-30] MEDS: ASPIRIN 81 MG ECTAB PO SCH (08:25)
[2018-12-30] MEDS: FLUTICASONE HFA 220 MCG INHALER INH SCH ×2 (08:26→20:25)
[2018-12-30] MEDS: ATENOLOL 25 MG TABLET PO SCH (08:26)
[2018-12-30] MEDS: ATORVASTATIN 40 MG TAB PO SCH (08:26)
[2018-12-30] MEDS: HEPARIN SOD 5,000 UNIT/0.5 ML VIAL SQ SCH ×2 (08:27→20:29)
--- NOTE | 2018-12-30 11:57 | Hospitalist Progress Note ---
Date of Service December 30, 2018 Assessment & Plan (1) Syncope: Likely secondary to bouts of cough following aspiration while drinking coffee We will admit to telemetry unit Rule out possible causes of syncope including arrhythmia and/or carotid stenosis Doubt any seizure activity Carotid ultrasound did not show any significant stenosis Echo has been pending No more syncopal episode (2) Pneumonia: Multilobar pneumonia Seems to be secondary to aspiration Could be community-acquired as well Cefepime was started in the emergency room and will continue Like to change to oral Augmentin on discharge Blood cultures pending Clinically better and will continue current antibiotic Chest x-ray on the of this month showed worsening of pneumonia Symptomatically better with normal CBC We will continue current antibiotic and add doxycycline to cover atypicals We will transfer the patient to medical floor (3) COPD exacerbation: History of COPD with ongoing smoking Will start Solu-Medrol and nebulized bronchodilator Advised to quit smoking No more cyanosis We will need to a step O2 saturation before discharge PT and OT evaluation and to a step O2 saturation tomorrow before discharge Will add Doxy as mentioned (4) CHF (congestive heart failure): History of diastolic heart failure with cor pulmonale No evidence of any fluid overload as of now We will hold off Lasix now No evidence of overt CHF We will continue the small dose of Lasix (5) Hypoxia: Noted to be cyanotic in the field following coughing spell and syncope Requiring oxygen to maintain saturation Has been on home oxygen at night only May need oxygen during daytime and with exertion DVT prophylaxis Subcu heparin CODE STATUS Discussed with the patient and he will be DNR Subjective The patient was seen and examined in presence of the son Admitted yesterday with COPD exacerbation and aspiration pneumonia with syncope secondary to bouts of cough Clinically a lot better today No shortness of breath at rest Saturation is maintained on 2 L of nasal cannula oxygen 12/29 Remains stable in bed without any symptoms of shortness of breath Denies any cough and/or sputum production No abdominal pain nausea and/or vomiting 12/30 The patient was seen and examined in telemetry unit He has been feeling a lot better Remains shortness of breath at rest He has been requiring about 5 L of nasal oxygen continuously He did very well with physical therapy and wants to go home Physical Exam Vital Signs (Past 24 Hours): Last Vital Signs Temp 36.9 C 12/30/18 11:33 Pulse 51 L 12/30/18 11:33 Resp 23 03/25/19 11:33 BP 128/69 12/30/18 11:33 Pulse Ox 91 12/30/18 11:33 Physical Exam: Moderate shortness of breath at rest Constitutional: + ill appearing and + thin Eyes: PERRL, conjunctivae normal, anicteric sclerae ENMT: external ear and nose normal, oropharynx normal Respiratory: + respiratory distress (Minimal respiratory distress at rest), + cough and + tachypneic Auscultation: + diminished lung sounds and + wheezes (Bilateral-improved) Cardiovascular: Rate/Rhythm: regular rate and regular rhythm Heart Sounds: normal S1 and normal S2 Gastrointestinal (Abdomen): normal bowel sounds, soft, nontender, no hepatos plenomegaly Musculoskeletal: No acute arthritis involving any joint Results & Data Laboratory Results Short CBC 12/30/18 Range/Units 06:57 WBC 9.59 (4.8-10.8) K/uL Hgb 15.4 (14.0-18.0) g/dL Hct 51.2 (42-52) % Plt Count 120 L (130-400) K/uL Medications Administered Current Inpatient Medications Albuterol (Duoneb) 3 ml NEB Q4R PRN PRN Reason: Shortness Of Breath Or Wheezin Stop: 01/26/19 15:59 Aspirin (Ecotrin Ectab) 81 mg PO DAILY [facility] Stop: 01/26/19 17:51 Last Admin: 12/30/18 08:25 Dose: 81 mg Documented by: Atenolol (Tenormin) 25 mg PO DAILY [facility] Stop: 01/27/19 08:59 Last Admin: 12/30/18 08:26 Dose: 25 mg Documented by: Atorvastatin Calcium (Lipitor) 40 mg PO DAILY [facility] Stop: 01/27/19 08:59 Last Admin: 12/30/18 08:26 Dose: 40 mg Documented by: Fluticasone Propionate (Flovent Hfa 220mcg) 2 puffs INH BID [facility] Stop: 01/26/19 20:59 Last Admin: 12/30/18 08:26 Dose: 2 puffs Documented by: Heparin Sodium (Porcine) (Heparin Sodium (Porcine)) 5,000 units SQ Q12 [facility] Stop: 01/26/19 20:59 Last Admin: 12/30/18 08:27 Dose: 5,000 units Documented by: Methylprednisolone 40 mg/ (Syringe) 0.64 mls @ 1.5 mls/min IV Q8H [facility] Stop: 01/26/19 15:59 Last Admin: 12/30/18 08:25 Dose: 1.5 mls/min Documented by: Cefepime HCl 2,000 mg/ Syringe 20 mls @ 5.5 mls/min IV Q12H [facility] Stop: 12/31/18 23:59 Last Admin: 12/30/18 02:33 Dose: 5.5 mls/min Documented by: Polyethylene Glycol (Miralax Powder Packet) 17 gm PO DAILY PRN PRN Reason: Constipation Stop: 01/27/19 21:04 Last Admin: 12/29/18 20:24 Dose: 17 gm Documented by: (1) Syncope Syncope type: unspecified Qualified Code(s): R55 - Syncope and collapse (2) Pneumonia Laterality: left Lung location: lower lobe of lung Pneumonia type: due to unspecified organism Qualified Code(s): J18.1 - Lobar pneumonia, unspecified organism
[2018-12-30] MEDS: DOXYCYCLINE HYCLATE 100 MG CAP PO SCH ×2 (13:34→20:27)
[2018-12-31] MEDS: methylPREDNISolone 40 MG in SYRINGE 0 ML IV SCH ×3 (02:00→17:48)
[2018-12-31] MEDS: CEFEPIME 2,000 MG in SYRINGE 7.5 ML IV SCH ×2 (02:00→13:26)
[2018-12-31 09:25] LABS: Hematocrit (blood only) 51.8 % (42-52); Hemoglobin 15.9 g/dL (14.0-18.0); Lymphocytes # (auto) 0.55 K/uL (1.2-3.4); Lymphocytes % (auto) 8.5 %; Mean Corpuscular Hgb Conc 30.7 g/dL (32-36); Mean Corpuscular Volume 110.4 fL (80-100); Mean Platelet Volume 10.6 fL (7.4-10.4); Monocytes # (auto) 0.21 K/uL (0.11-0.59); Monocytes % (auto) 3.2 %; Neutrophils # (auto) 5.73 K/uL (1.4-6.5); Neutrophils % (auto) 88.3 %; Platelet Count 118 K/uL (130-400); RDW Coefficient of Variation 15.9 % (11.5-14.5); RDW Standard Deviation 64.5 fL (36.4-46.3); Red Blood Count 4.69 M/uL (4.7-6.1); White Blood Count 6.49 K/uL (4.8-10.8)
[2018-12-31 09:56] LABS: Anisocytosis Present; Macrocytosis Present; Polychromasia 1+
[2018-12-31 10:05] LABS: BUN Creatinine Ratio 37.9 (10-20); Calcium 8.4 mg/dl (8.5-10.1); Creatinine Clr Calc Pharmacy 60.1 ml/min; Est GFR (African American) 100.3; Est GFR (Non-African American) 86.5; Potassium 5.3 mmol/L (3.5-5.1)
[2018-12-31] MEDS: DOXYCYCLINE HYCLATE 100 MG CAP PO SCH ×2 (10:37→20:52)
[2018-12-31] MEDS: ATENOLOL 25 MG TABLET PO SCH (10:37)
[2018-12-31] MEDS: ATORVASTATIN 40 MG TAB PO SCH (10:37)
[2018-12-31] MEDS: FLUTICASONE HFA 220 MCG INHALER INH SCH ×2 (10:37→20:52)
[2018-12-31] MEDS: ASPIRIN 81 MG ECTAB PO SCH (10:38)
[2018-12-31] MEDS: HEPARIN SOD 5,000 UNIT/0.5 ML VIAL SQ SCH ×2 (10:40→20:51)
--- NOTE | 2018-12-31 11:47 | Hospitalist Progress Note ---
Date of Service December 31, 2018 Assessment & Plan (1) Syncope: Likely secondary to bouts of cough following aspiration while drinking coffee Likely Post tussive syncope or Cough Syncope We will admit to telemetry unit Rule out possible causes of syncope including arrhythmia and/or carotid stenosis Doubt any seizure activity Carotid ultrasound did not show any significant stenosis Echo has been pending No more syncopal episode (2) Pneumonia: Multilobar pneumonia Seems to be secondary to aspiration Could be community-acquired as well Cefepime was started in the emergency room and will continue Like to change to oral Augmentin on discharge Blood cultures pending Clinically better and will continue current antibiotic Chest x-ray on the of this month showed worsening of pneumonia Symptomatically better with normal CBC We will continue current antibiotic and add doxycycline to cover atypicals We will transfer the patient to medical floor (3) COPD exacerbation: History of COPD with ongoing smoking Will start Solu-Medrol and nebulized bronchodilator Advised to quit smoking No more cyanosis We will need to a step O2 saturation before discharge PT and OT evaluation and to a step O2 saturation tomorrow before discharge Will add Doxy as mentioned Clinically not yet have better to be discharged Requiring 4-5 l oxygen at rest and more than 5 disorder on ambulation (4) CHF (congestive heart failure): History of diastolic heart failure with cor pulmonale No evidence of any fluid overload as of now We will hold off Lasix now No evidence of overt CHF We will continue the small dose of Lasix (5) Hypoxia: Likely has acute and chronic respiratory failure Noted to be cyanotic in the field following coughing spell and syncope Requiring oxygen to maintain saturation Has been on home oxygen at night only May need oxygen during daytime and with exertion DVT prophylaxis Subcu heparin CODE STATUS Discussed with the patient and he will be DNR Subjective The patient was seen and examined in presence of the son Admitted yesterday with COPD exacerbation and aspiration pneumonia with syncope secondary to bouts of cough Clinically a lot better today No shortness of breath at rest Saturation is maintained on 2 L of nasal cannula oxygen 12/29 Remains stable in bed without any symptoms of shortness of breath Denies any cough and/or sputum production No abdominal pain nausea and/or vomiting 12/30 The patient was seen and examined in telemetry unit He has been feeling a lot better Remains shortness of breath at rest He has been requiring about 5 L of nasal oxygen continuously He did very well with physical therapy and wants to go home 12/31 Moderate shortness of breath at rest Has [place] facis CO2 was noted to be 46 this morning Not yet ready to be discharged Discussed with the brother and [id number] Physical Exam Vital Signs (Past 24 Hours): Last Vital Signs Temp 36.6 C 12/31/18 07:53 Pulse 50 L 12/31/18 11:10 Resp 20 12/31/18 11:10 BP 122/67 12/31/18 07:53 Pulse Ox 91 12/31/18 11:10 Physical Exam: Moderate distress at rest Constitutional: + ill appearing and + thin Eyes: PERRL, conjunctivae normal, anicteric sclerae ENMT: external ear and nose normal, oropharynx normal Respiratory: + respiratory distress (Minimal respiratory distress at rest), + cough and + tachypneic Auscultation: + diminished lung sounds, + crackles (Minimal bibasilar crackles) and + wheezes (Bilateral-improved) Cardiovascular: Rate/Rhythm: regular rate and regular rhythm Heart Sounds: normal S1 and normal S2 Gastrointestinal (Abdomen): normal bowel sounds, soft, nontender, no hepatosplenomegaly Neurologic: Alert and awake. Cranial Results & Data Laboratory Results Short CBC 12/31/18 Range/Units 08:55 WBC 6.49 (4.8-10.8) K/uL Hgb 15.9 (14.0-18.0) g/dL Hct 51.8 (42-52) % Plt Count 118 L (130-400) K/uL BMP 12/31/18 08:55 Sodium 141 Potassium 5.3 H Chloride 97 L Carbon Dioxide 46 H* BUN 31 H Creatinine 0.82 Glucose 151 H Calcium 8.4 L Medications Administered Current Inpatient Medications Albuterol (Duoneb) 3 ml NEB Q4R PRN PRN Reason: Shortness Of Breath Or Wheezin Stop: 01/26/19 15:59 Last Admin: 12/31/18 11:06 Dose: 3 ml Documented by: Aspirin (Ecotrin Ectab) 81 mg PO DAILY [facility] Stop: 01/26/19 17:51 Last Admin: 12/31/18 10:38 Dose: 81 mg Documented by: Atenolol (Tenormin) 25 mg PO DAILY [facility] Stop: 01/27/19 08:59 Last Admin: 12/31/18 10:37 Dose: 25 mg Documented by: Atorvastatin Calcium (Lipitor) 40 mg PO DAILY [facility] Stop: 01/27/19 08:59 Last Admin: 12/31/18 10:37 Dose: 40 mg Documented by: Doxycycline Hyclate (Vibramycin) 100 mg PO BID [facility] Stop: 01/06/19 12:14 Last Admin: 12/31/18 10:37 Dose: 100 mg Documented by: Fluticasone Propionate (Flovent Hfa 220mcg) 2 puffs INH BID [facility] Stop: 01/26/19 20:59 Last Admin: 12/31/18 10:37 Dose: 2 puffs Documented by: Heparin Sodium (Porcine) (Heparin Sodium (Porcine)) 5,000 units SQ Q12 [facility] Stop: 01/26/19 20:59 Last Admin: 12/31/18 10:40 Dose: 5,000 units Documented by: Methylprednisolone 40 mg/ (Syringe) 0.64 mls @ 1.5 mls/min IV Q8H [facility] Stop: 01/26/19 15:59 Last Admin: 12/31/18 10:38 Dose: 1.5 mls/min Documented by: Cefepime HCl 2,000 mg/ Syringe 20 mls @ 5.5 mls/min IV Q12H [facility] Stop: 12/31/18 23:59 Last Admin: 12/31/18 02:00 Dose: 5.5 mls/min Documented by: Polyethylene Glycol (Miralax Powder Packet) 17 gm PO DAILY PRN PRN Reason: Constipation Stop: 01/27/19 21:04 Last Admin: 12/29/18 20:24 Dose: 17 gm Documented by: (1) Syncope Syncope type: unspecified Qualified Code(s): R55 - Syncope and collapse (2) Pneumonia Laterality: left Lung location: lower lobe of lung Pneumonia type: due to unspecified organism Qualified Code(s): J18.1 - Lobar pneumonia, unspecified organism
[2019-01-01] MEDS: methylPREDNISolone 40 MG in SYRINGE 0 ML IV SCH ×3 (01:55→17:26)
[2019-01-01 07:28] LABS: BUN Creatinine Ratio 35.8 (10-20); Creatinine Clr Calc Pharmacy 62.4 ml/min; Est GFR (African American) 101.8; Est GFR (Non-African American) 87.8; Magnesium 2.3 mg/dl (1.8-2.4); Phosphorus 2.2 mg/dl (2.5-4.9); Potassium 5.3 mmol/L (3.5-5.1)
[2019-01-01] MEDS: FLUTICASONE HFA 220 MCG INHALER INH SCH ×2 (09:01→21:43)
[2019-01-01] MEDS: DOXYCYCLINE HYCLATE 100 MG CAP PO SCH ×2 (09:01→21:44)
[2019-01-01] MEDS: ATENOLOL 25 MG TABLET PO SCH (09:01)
[2019-01-01] MEDS: ATORVASTATIN 40 MG TAB PO SCH (09:01)
[2019-01-01] MEDS: ASPIRIN 81 MG ECTAB PO SCH (09:01)
[2019-01-01] MEDS: HEPARIN SOD 5,000 UNIT/0.5 ML VIAL SQ SCH ×2 (09:02→21:44)
[2019-01-01] MEDS ORDERED: PIPERACILL/TAZOBAC CONSULT ACTIVE PRN (09:29)
[2019-01-01] MEDS ORDERED: PIPERACILLIN/TAZOBACTAM 3.375 GM in DEXTROSE 5% 100 ML IV STA (09:49)
[2019-01-01 10:07] LABS: HCO3 ABG 44 mmol/L (19-24); Oxygen Saturation ABG 92.6 % (90-95); PCO2 ABG 84 mmHg (35-46); PO2 ABG 71 mm/Hg (80-95); pH ABG 7.34 (7.35-7.45)
[2019-01-01 10:09] LABS: Allen Test Pos (Pos)
[2019-01-01] MEDS: ALBUT/IPRATROP 3MG/0.5MG NEB 3 ML VIAL NEB SCH ×4 (11:09→22:29)
--- NOTE | 2019-01-01 13:03 | Hospitalist Progress Note ---
Date of Service January 01, 2019 Assessment & Plan (1) Syncope: Likely secondary to bouts of cough following aspiration while drinking coffee Likely Post tussive syncope or Cough Syncope We will admit to telemetry unit Rule out possible causes of syncope including arrhythmia and/or carotid stenosis Doubt any seizure activity Carotid ultrasound did not show any significant stenosis Echo: Right ventricle is severely dilated, right ventricle systolic function is severely reduced, flattened septum is considered with RV pressure/volume overload, right atrium is severely dilated, left ventricular cavity is small with EF of more than 70%, left atrium is a small, mild to moderate tricuspid regurgitation and pulmonary hypertension No more syncopal episode (2) Pneumonia: Multilobar pneumonia Seems to be secondary to aspiration Could be community-acquired as well Cefepime was started in the emergency room and will continue Like to change to oral Augmentin on discharge Blood cultures pending Clinically better and will continue current antibiotic Chest x-ray on the of this month showed worsening of pneumonia Symptomatically better with normal CBC We will continue current antibiotic and add doxycycline to cover atypicals Clinically not any better Pulmonology consulted-appreciate input and recommendation (3) COPD exacerbation: History of COPD with ongoing smoking Will start Solu-Medrol and nebulized bronchodilator Advised to quit smoking No more cyanosis We will need to a step O2 saturation before discharge PT and OT evaluation and to a step O2 saturation tomorrow before discharge Will add Doxy as mentioned Clinically not yet have better to be discharged Requiring 4-5 l oxygen at rest and more than 5 disorder on ambulation Appreciate pulmonary input and recommendation (4) CHF (congestive heart failure): History of diastolic heart failure with cor pulmonale No evidence of any fluid overload as of now We will hold off Lasix now No evidence of overt CHF We will continue the small dose of Lasix Has right heart failure likely secondary to cor pulmonale (5) Hypoxia: Likely has acute and chronic respiratory failure Noted to be cyanotic in the field following coughing spell and syncope Requiring oxygen to maintain saturation Has been on home oxygen at night only May need oxygen during daytime and with exertion DVT prophylaxis Subcu heparin CODE STATUS Discussed with the patient and he will be DNR Subjective The patient was seen and examined in presence of the son Admitted yesterday with COPD exacerbation and aspiration pneumonia with syncope secondary to bouts of cough Clinically a lot better today No shortness of breath at rest Saturation is maintained on 2 L of nasal cannula oxygen 12/29 Remains stable in bed without any symptoms of shortness of breath Denies any cough and/or sputum production No abdominal pain nausea and/or vomiting 12/30 The patient was seen and examined in telemetry unit He has been feeling a lot better Remains shortness of breath at rest He has been requiring about 5 L of nasal oxygen continuously He did very well with physical therapy and wants to go home 12/31 Moderate shortness of breath at rest Has [place] [employer] facis CO2 was noted to be 46 this morning Not yet ready to be discharged Discussed with the brother and [id number] 01/01 Remains stable in bed with moderate shortness of breath at rest CO2 remains high at 46 Pulmonology consulted Physical Exam Vital Signs (Past 24 Hours): Last Vital Signs Temp 36.5 C 01/01/19 07:32 Pulse 46 L 01/01/19 11:12 Resp 19 01/01/19 11:12 BP 135/68 01/01/19 07:32 Pulse Ox 90 01/01/19 11:43 Physical Exam: Moderate distress at rest Constitutional: + ill appearing and + thin Eyes: PERRL, conjunctivae normal, anicteric sclerae ENMT: external ear and nose normal, oropharynx normal Respiratory: + respiratory distress (Minimal respiratory distress at rest), + cough and + tachypneic Auscultation: + diminished lung sounds, + crackles (Minimal bibasilar crackles) and + wheezes (Bilateral-improved) Cardiovascular: Rate/Rhythm: regular rate and regular rhythm Heart Sounds: normal S1 and normal S2 Gastrointestinal (Abdomen): normal bowel sounds, soft, nontender, no hepatosplenomegaly Neurologic: Alert, awake and oriented. Generally very weak and lethargic Results & Data Laboratory Results [facility] 01/01/19 06:31 Sodium 141 Potassium 5.3 H Chloride 97 L Carbon Dioxide 46 H* BUN 28 H Creatinine 0.79 Glucose 126 H Calcium 8.0 L Medications Administered Current Inpatient Medications Albuterol (Duoneb) 3 ml NEB Q4R [facility] Stop: 01/31/19 11:59 Last Admin: 01/01/19 11:09 Dose: 3 ml Documented by: Aspirin (Ecotrin Ectab) 81 mg PO DAILY [facility] Stop: 01/26/19 17:51 Last Admin: 01/01/19 09:01 Dose: 81 mg Documented by: Atenolol (Tenormin) 25 mg PO DAILY [facility] Stop: 01/27/19 08:59 Last Admin: 01/01/19 09:01 Dose: 25 mg Documented by: Atorvastatin Calcium (Lipitor) 40 mg PO DAILY [facility] Stop: 01/27/19 08:59 Last Admin: 01/01/19 09:01 Dose: 40 mg Documented by: Doxycycline Hyclate (Vibramycin) 100 mg PO BID [facility] Stop: 01/06/19 12:14 Last Admin: 01/01/19 09:01 Dose: 100 mg Documented by: Fluticasone Propionate (Flovent Hfa 220mcg) 2 puffs INH BID [facility] Stop: 01/26/19 20:59 Last Admin: 01/01/19 09:01 Dose: 2 puffs Documented by: Heparin Sodium (Porcine) (Heparin Sodium (Porcine)) 5,000 units SQ Q12 [facility] Stop: 01/26/19 20:59 Last Admin: 01/01/19 09:02 Dose: 5,000 units Documented by: Methylprednisolone 40 mg/ (Syringe) 0.64 mls @ 1.5 mls/min IV Q8H [facility] Stop: 01/26/19 15:59 Last Admin: 01/01/19 09:01 Dose: 1.5 mls/min Documented by: Piperacillin Sod/Tazobactam (Sod 3.375 gm/ Dextrose) 115 mls @ 28.75 mls/hr IV Q8H [facility] Stop: 01/08/19 15:59 Miscellaneous Information (Consult) 1 ea N/A UD PRN PRN Reason: Consult Stop: 01/31/19 09:28 Polyethylene Glycol (Miralax Powder Packet) 17 gm PO DAILY PRN PRN Reason: Constipation Stop: 01/27/19 21:04 Last Admin: 12/29/18 20:24 Dose: 17 gm Documented by: (1) Syncope Syncope type: unspecified Qualified Code(s): R55 - Syncope and collapse (2) Pneumonia Laterality: left Lung location: lower lobe of lung Pneumonia type: due to unspecified organism Qualified Code(s): J18.1 - Lobar pneumonia, unspecified organism
[2019-01-01] MEDS: FUROSEMIDE 40 MG in SYRINGE 0 ML IV SCH (13:37)
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
[2019-01-01] MEDS: PIPERACILLIN/TAZOBACTAM 3.375 GM in DEXTROSE 5% 100 ML IV SCH (16:46)
[2019-01-02] MEDS: PIPERACILLIN/TAZOBACTAM 3.375 GM in DEXTROSE 5% 100 ML IV SCH ×4 (00:31→23:48)
[2019-01-02] MEDS: methylPREDNISolone 40 MG in SYRINGE 0 ML IV SCH ×3 (01:51→17:43)
[2019-01-02] MEDS: ALBUT/IPRATROP 3MG/0.5MG NEB 3 ML VIAL NEB SCH ×6 (03:52→23:05)
[2019-01-02 06:09] LABS: Hemoglobin 16.4 g/dL (14.0-18.0); Mean Corpuscular Hgb Conc 32.2 g/dL (32-36); Mean Corpuscular Volume 105.2 fL (80-100); RDW Coefficient of Variation 15.2 % (11.5-14.5); RDW Standard Deviation 59.3 fL (36.4-46.3); Red Blood Count 4.85 M/uL (4.7-6.1)
[2019-01-02 06:50] LABS: Creatinine Clr Calc Pharmacy 60.9 ml/min; Est GFR (African American) 100.8; Est GFR (Non-African American) 86.9; Potassium 4.4 mmol/L (3.5-5.1)
[2019-01-02 06:56] LABS: Mean Platelet Volume 10.2 fL (7.4-10.4); Platelet Count 108 K/uL (130-400)
[2019-01-02 06:58] LABS: Calcium 8.3 mg/dl (8.5-10.1); Immature Granulocytes # (auto) 0.01 K/uL (0.00-0.02); Immature Granulocytes % (auto) 0.1 %; Lymphocytes # (auto) 0.55 K/uL (1.2-3.4); Lymphocytes % (auto) 6.6 %; Magnesium 2.1 mg/dl (1.8-2.4); Monocytes # (auto) 0.33 K/uL (0.11-0.59); Neutrophils # (auto) 7.45 K/uL (1.4-6.5); Neutrophils % (auto) 89.3 %
--- NOTE | 2019-01-02 08:00 | XRay Report ---
XR chest 2V routine HISTORY: Chest x-ray abnormality. Follow-up lung opacities. COMPARISON: Chest 12/29/2018. FINDINGS: No pneumothorax. Progressive left mid to lower lung zone airspace opacities with an associa sole left pleural effusion. Left mediastinal shift remains unchanged and suggests the possibility of l eft lower lobe collapse. The right lung remains mildly hyperexpanded with diffuse interstitial thicke maria and a trace right pleural effusion. This may represent superimposed congestive change. IMPRESSION: 1. Progressive left mid to lower lung zone airspace opacities with an associated left pleural effusio n. Left mediastinal shift remains unchanged and suggests the possibility of left lower lobe collapse. 2. Suspect mild congestive change. Electronically signed by: Carlos Saenz M.D. 01/02/2019 7:59 AM
[2019-01-02] MEDS: HEPARIN SOD 5,000 UNIT/0.5 ML VIAL SQ SCH ×2 (09:06→20:02)
[2019-01-02] MEDS: DOXYCYCLINE HYCLATE 100 MG CAP PO SCH ×2 (09:07→20:02)
[2019-01-02] MEDS: FLUTICASONE HFA 220 MCG INHALER INH SCH ×2 (09:07→20:02)
[2019-01-02] MEDS: ASPIRIN 81 MG ECTAB PO SCH (09:10)
[2019-01-02] MEDS: ATORVASTATIN 40 MG TAB PO SCH (09:10)
[2019-01-02] MEDS: FUROSEMIDE 40 MG in SYRINGE 0 ML IV SCH (09:11)
[2019-01-02] MEDS: ATENOLOL 25 MG TABLET PO SCH (09:12)
--- NOTE | 2019-01-02 10:51 | Progress Note ---
DATE: 01/02/2019 PULMONARY PROGRESS NOTE TIME OF EXAMINATION: 9:45 a.m. SUBJECTIVE: The patient does not complain much. He insists that he is not short of breath even when walking with physical therapy. His nurse, however, tells me he is very short of breath walking with therapy. I believe the patient is anxious for discharge. He has coughed up only a little phlegm. He is not coughing much. He denies chest pains. OBJECTIVE: GENERAL: The patient was comfortable at rest. VITAL SIGNS: Temperature is 36.9. There has been no fevers. HEART: Cardiac rate this morning was only 43 per minute. Rhythm was regular. Blood pressure 167/76. LUNGS: Auscultation of the lung jones reveals extremely diminished breath sounds throughout the left lung compared with the right lung. There is minimal aeration on the left. There is dullness to percussion. Saturation was 91% on 4 liters. He did not have significant rhonchi. ABDOMEN: Soft and nontender. EXTREMITIES: Showed no cyanosis, clubbing or edema. IMAGING DATA: The patient did have a chest x-ray this morning. There is progressive volume loss in the left lung. It appears that the left lower lobe may be totally collapsed. There is ipsilateral shift to the left. I am not inclined to think that there is a lot of effusion but more likely atelectasis. LABORATORY DATA: White count today is 7.8. Hemoglobin 16.4. Platelets 108,000. The patient had a blood gas yesterday on 4 liters. This showed a pH of 7.34 with a pCO2 of 84 and a pO2 of 71. This reflects respiratory acidosis with partial compensation. Electrolytes today show sodium 139, potassium 4.4, chloride 91, bicarbonate 48. BUN 26 with a creatinine 0.81. IMPRESSION: 1. Respiratory failure - acute on chronic with hypoxia and hypercarbia. 2. Bilateral pneumonia. 3. Bullous emphysema. 4. Pulmonary hypertension. 5. Recurrent syncope. 6. Atelectasis, left lower lobe. COMMENTS AND RECOMMENDATIONS: The patient obviously has very severe underlying pulmonary disease, which is now compromised by pneumonia and apparent atelectasis. The supposition is that he has secretions in the left lower lobe, but with an inability to exclude a neoplasm. The patient's pCO2 is too high to do bronchoscopy in any circumstance except on a ventilator. I spoke with the patient about his situation. I do not believe he has any insight. We are going to have him wear the BiPAP both during the day and at night, but during the day would be intermittent. He has tolerated the BiPAP well. I will be initiating incentive spirometry. Tomorrow morning, we will repeat a chest x-ray and a blood gas. If he is worse, we would likely need to consider transfer to ICU for intubation and therapeutic bronchoscopy if the patient would be agreeable at that time. I did not discuss that possibility with him directly. OLGA
--- NOTE | 2019-01-02 14:57 | Hospitalist Progress Note ---
Date of Service January 02, 2019 Assessment & Plan (1) Syncope: Likely secondary to bouts of cough following aspiration while drinking coffee Likely Post tussive syncope or Cough Syncope We will admit to telemetry unit Rule out possible causes of syncope including arrhythmia and/or carotid stenosis Doubt any seizure activity Carotid ultrasound did not show any significant stenosis Echo: Right ventricle is severely dilated, right ventricle systolic function is severely reduced, flattened septum is considered with RV pressure/volume overload, right atrium is severely dilated, left ventricular cavity is small with EF of more than 70%, left atrium is a small, mild to moderate tricuspid regurgitation and pulmonary hypertension No more syncopal episode No more syncope in the hospital, did not have any arrhythmias while on telemetry unit and equal did show increased right atrium and right ventricular size compatible with cor pulmonale (2) Pneumonia: Multilobar pneumonia Seems to be secondary to aspiration Could be community-acquired as well Cefepime was started in the emergency room and will continue Like to change to oral Augmentin on discharge Blood cultures pending Clinically better and will continue current antibiotic Chest x-ray on the of this month showed worsening of pneumonia Symptomatically better with normal CBC We will continue current antibiotic and add doxycycline to cover atypicals Clinically not any better Pulmonology consulted-appreciate input and recommendation Cefepime has been changed to Zosyn as per cuff knitter CO2 level has been high at 49-getting BiPAP without much improvement May need bronchoscopy as per cuff knitter (3) COPD exacerbation: History of COPD with ongoing smoking Will start Solu-Medrol and nebulized bronchodilator Advised to quit smoking No more cyanosis We will need to a step O2 saturation before discharge PT and OT evaluation and to a step O2 saturation tomorrow before discharge Will add Doxy as mentioned Clinically not yet have better to be discharged Requiring 4-5 l oxygen at rest and more than 5 disorder on ambulation Appreciate pulmonary input and recommendation We will put him on a patch (4) CHF (congestive heart failure): History of diastolic heart failure with cor pulmonale No evidence of any fluid overload as of now We will hold off Lasix now No evidence of overt CHF We will continue the small dose of Lasix Has right heart failure likely secondary to cor pulmonale Has been getting Lasix (5) Hypoxia: Likely has acute and chronic respiratory failure Noted to be cyanotic in the field following coughing spell and syncope Requiring oxygen to maintain saturation Has been on home oxygen at night only May need oxygen during daytime and with exertion DVT prophylaxis Subcu heparin CODE STATUS Discussed with the patient and he will be DNR Subjective The patient was seen and examined in presence of the son Admitted yesterday with COPD exacerbation and aspiration pneumonia with syncope secondary to bouts of cough Clinically a lot better today No shortness of breath at rest Saturation is maintained on 2 L of nasal cannula oxygen 12/29 Remains stable in bed without any symptoms of shortness of breath Denies any cough and/or sputum production No abdominal pain nausea and/or vomiting 12/30 The patient was seen and examined in telemetry unit He has been feeling a lot better Remains shortness of breath at rest He has been requiring about 5 L of nasal oxygen continuously He did very well with physical therapy and wants to go home 12/31 Moderate shortness of breath at rest Has Libby Puffer facis CO2 was noted to be 46 this morning Not yet ready to be discharged Discussed with the brother and [id number] 01/01 Remains stable in bed with moderate shortness of breath at rest CO2 remains high at 46 Pulmonology consulted 01/02 The patient was seen and examined the medical floor Clinically he has been feeling better Gets shortness of breath on minimal exertion Was on BiPAP throughout the whole night yesterday Physical Exam Vital Signs (Past 24 Hours): Last Vital Signs Temp 36.8 C 01/02/19 14:33 Pulse 62 01/02/19 14:33 Resp 22 01/02/19 14:33 BP 113/58 L 01/02/19 14:33 Pulse Ox 92 01/02/19 14:33 Physical Exam: No apparent distress at rest Constitutional: + ill appearing and + thin Eyes: PERRL, conjunctivae normal, anicteric sclerae ENMT: external ear and nose normal, oropharynx normal Respiratory: + respiratory distress (Minimal respiratory distress at rest), + cough and + tachypneic Auscultation: + diminished lung sounds, + crackles (Minimal bibasilar crackles) and + wheezes (Bilateral-improved) Cardiovascular: Rate/Rhythm: regular rate and regular rhythm Heart Sounds: normal S1 and normal S2 Gastrointestinal (Abdomen): normal bowel sounds, soft, nontender, no hepatosplenomegaly Musculoskeletal: No acute arthritis involving any joint Neurologic: Alert, awake and oriented x3. Results & Data Laboratory Results Short CBC 01/02/19 Range/Units 05:43 WBC 7.80 (4.8-10.8) K/uL Hgb 16.4 (14.0-18.0) g/dL Hct 51.0 (42-52) % Plt Count 108 L (130-400) K/uL BMP 01/02/19 05:43 Sodium 139 Potassium 4.4 D Chloride 91 L Carbon Dioxide 49 H* BUN 26 H Creatinine 0.81 Glucose 114 H Calcium 8.3 L Medications Administered Current Inpatient Medications Acetylcysteine (Mucomyst 10%) 0 ml INH BID DENNIS Stop: 02/01/19 20:59 Albuterol (Duoneb) 3 ml NEB Q4R DENNIS Stop: 01/31/19 11:59 Last Admin: 01/02/19 11:16 Dose: 3 ml Documented by: Aspirin (Ecotrin Ectab) 81 mg PO DAILY DENINS Stop: 01/26/19 17:51 Last Admin: 01/02/19 09:10 Dose: 81 mg Documented by: Atenolol (Tenormin) 25 mg PO DAILY DENNIS Stop: 01/27/19 08:59 Last Admin: 01/02/19 09:12 Dose: Not Given Documented by: Atorvastatin Calcium (Lipitor) 40 mg PO DAILY DENNIS Stop: 01/27/19 08:59 Last Admin: 01/02/19 09:10 Dose: 40 mg Documented by: Doxycycline Hyclate (Vibramycin) 100 mg PO BID DENNIS Stop: 01/06/19 12:14 Last Admin: 01/02/19 09:07 Dose: 100 mg Documented by: Fluticasone Propionate (Flovent Hfa 220mcg) 2 puffs INH BID DENNIS Stop: 01/26/19 20:59 Last Admin: 01/02/19 09:07 Dose: 2 puffs Documented by: Heparin Sodium (Porcine) (Heparin Sodium (Porcine)) 5,000 units SQ Q12 DENNIS Stop: 01/26/19 20:59 Last Admin: 01/02/19 09:06 Dose: 5,000 units Documented by: Methylprednisolone 40 mg/ (Syringe) 0.64 mls @ 1.5 mls/min IV Q8H DENNIS Stop: 01/26/19 15:59 Last Admin: 01/02/19 09:11 Dose: 1.5 mls/min Documented by: Piperacillin Sod/Tazobactam (Sod 3.375 gm/ Dextrose) 115 mls @ 28.75 mls/hr IV Q8H DENNIS Stop: 01/08/19 15:59 Last Infusion: 01/02/19 13:01 Dose: Infused Documented by: Furosemide 40 mg/ Syringe 4 mls @ 4 mls/min IV DAILY DENNIS Stop: 01/31/19 13:14 Last Admin: 01/02/19 09:11 Dose: 4 mls/min Documented by: Miscellaneous Information (Consult) 1 ea N/A UD PRN PRN Reason: Consult Stop: 01/31/19 09:28 Polyethylene Glycol (Miralax Powder Packet) 17 gm PO DAILY PRN PRN Reason: Constipation Stop: 01/27/19 21:04 Last Admin: 12/29/18 20:24 Dose: 17 gm Documented by: (1) Syncope Syncope type: unspecified Qualified Code(s): R55 - Syncope and collapse (2) Pneumonia Laterality: left Lung location: lower lobe of lung Pneumonia type: due to unspecified organism Qualified Code(s): J18.1 - Lobar pneumonia, unspecified organism
[2019-01-02] MEDS: NICOTINE 14 MG/24 HR PATCH TD SCH (15:58)
[2019-01-02] MEDS: ACETYLCYSTEINE 10% INHAL SOLN **DISPENSED FROM RESP. INH SCH (19:32)
[2019-01-03] MEDS: methylPREDNISolone 40 MG in SYRINGE 0 ML IV SCH ×3 (02:00→18:26)
[2019-01-03] MEDS: ALBUT/IPRATROP 3MG/0.5MG NEB 3 ML VIAL NEB SCH ×6 (03:09→23:28)
[2019-01-03] MEDS: ACETYLCYSTEINE 10% INHAL SOLN **DISPENSED FROM RESP. INH SCH ×2 (07:27→19:11)
[2019-01-03] MEDS: PIPERACILLIN/TAZOBACTAM 3.375 GM in DEXTROSE 5% 100 ML IV SCH ×2 (08:43→16:03)
[2019-01-03] MEDS: FLUTICASONE HFA 220 MCG INHALER INH SCH ×2 (08:43→20:17)
[2019-01-03] MEDS: ASPIRIN 81 MG ECTAB PO SCH (08:43)
[2019-01-03] MEDS: ATORVASTATIN 40 MG TAB PO SCH (08:43)
[2019-01-03] MEDS: FUROSEMIDE 40 MG in SYRINGE 0 ML IV SCH (08:43)
[2019-01-03] MEDS: HEPARIN SOD 5,000 UNIT/0.5 ML VIAL SQ SCH ×2 (08:44→20:17)
[2019-01-03] MEDS: ATENOLOL 25 MG TABLET PO SCH (08:44)
[2019-01-03] MEDS: NICOTINE 14 MG/24 HR PATCH TD SCH (08:44)
[2019-01-03] MEDS: DOXYCYCLINE HYCLATE 100 MG CAP PO SCH ×2 (08:44→20:17)
[2019-01-03 10:23] LABS: Allen Test Pos (Pos); HCO3 ABG 46 mmol/L (19-24); PCO2 ABG 72 mmHg (35-46); PO2 ABG 54 mm/Hg (80-95); pH ABG 7.42 (7.35-7.45)
--- NOTE | 2019-01-03 10:47 | XRay Report ---
XR chest 2V routine CLINICAL HISTORY: pneumonia/atelectasis COMPARISON STUDY: 01/02/2019 FINDINGS: Slight improvement in aeration left lung base. Persistent infiltrative process left base co mbined with a small left effusion. Persistent prominence of pulmonary vasculature. Mild stable cardia megaly. IMPRESSION: Improved aeration left base with diminished prominence of a left basilar infiltrate and effusion. Potential subtle sternal nodularity . No major change from the prior exam in that regard. The above report was generated using voice recognition software. It may contain grammatical, syntax or spelling errors. Electronically signed by: Abilio Reyes M.D. 01/03/2019 10:46 AM
[2019-01-03 10:59] LABS: BUN Creatinine Ratio 23.9 (10-20); Creatinine Clr Calc Pharmacy 51.9 ml/min; Est GFR (African American) 90.4
[2019-01-03 11:53] LABS: Beta-Hydroxybutyrate 0.82 mg/dl (0.2-2.81)
--- NOTE | 2019-01-03 12:00 | Progress Note ---
DATE: 01/03/2019 PULMONARY PROGRESS NOTE TIME: 10:00 a.m. SUBJECTIVE: The patient does not complain much. He is not the best historian. He is anxious for discharge. His RN tells me that he is a little unstable on his feet. She also states he tries to move too fast. He gets winded when he does this movement. The patient states he has not coughed up any phlegm. OBJECTIVE: GENERAL: The patient appeared comfortable. He was sleeping when I first came into the room, but awakened readily. He was oriented. VITAL SIGNS: Cardiac rate is 60 per minute. Rhythm regular. Blood pressure 140/72. Temperature this morning 36.9. He has had no fevers. LUNGS: Auscultation reveals improved aeration to the left lung compared with yesterday. His breath sounds were much better heard than prior. Just a few scattered rhonchi were heard bilaterally. Saturation on 4-liter nasal cannula is 91%. EXTREMITIES: Showed no clubbing or edema. Slight finger cyanosis was suspected. LABORATORY DATA: White count today is 7.8. Hemoglobin 16.4. Platelets 108,000. The patient has an arterial blood gas ordered, which is pending. Electrolytes show sodium 139, potassium 4.4, chloride 91, bicarbonate 49. BUN was 26 with creatinine 0.81. A chest x-ray was ordered for this morning which is not yet completed. IMPRESSION: 1. Respiratory failure - acute on chronic with hypoxia and hypercarbia. 2. Bilateral pneumonia. 3. Atelectasis, left lung - clinically improved. 4. Bullous emphysema. 5. Pulmonary hypertension. 6. Recurrent syncope. COMMENTS AND RECOMMENDATIONS: I am awaiting the patient's blood gas and chest x-ray. The CO2 on the electrolytes was even higher today. I am pleased with his aeration on the left side on physical exam. I believe the patient can be switched from methylprednisolone to prednisone 40 mg daily. I believe the antibiotics likely can be changed to Augmentin. The patient did not wear his BiPAP all night last night, just for about 3 hours. I tried to emphasize to him how important this is. I cannot make a definite comment about discharge time until I see today's x-ray and blood gas. To get him a BiPAP at home, we likely would need to do an overnight pulse oximetry tonight with the patient wearing whatever would be his normal oxygen usage. Alternatively, he could be considered for a noninvasive ventilator. We will discuss with Dr. Morrison after the x-ray and blood gas are back.
[2019-01-03 12:22] LABS: Potassium 3.5 mmol/L (3.5-5.1)
--- NOTE | 2019-01-03 18:51 | Hospitalist Progress Note ---
Date of Service January 03, 2019 Assessment & Plan (1) Syncope: Likely secondary to bouts of cough following aspiration while drinking coffee Likely Post tussive syncope or Cough Syncope We will admit to telemetry unit Rule out possible causes of syncope including arrhythmia and/or carotid stenosis Doubt any seizure activity Carotid ultrasound did not show any significant stenosis Echo: Right ventricle is severely dilated, right ventricle systolic function is severely reduced, flattened septum is considered with RV pressure/volume overload, right atrium is severely dilated, left ventricular cavity is small with EF of more than 70%, left atrium is a small, mild to moderate tricuspid regurgitation and pulmonary hypertension No more syncopal episode No more syncope in the hospital, did not have any arrhythmias while on telemetry unit and equal did show increased right atrium and right ventricular size compatible with cor pulmonale (2) Pneumonia: Multilobar pneumonia Seems to be secondary to aspiration Could be community-acquired as well Cefepime was started in the emergency room and will continue Like to change to oral Augmentin on discharge Blood cultures pending Clinically better and will continue current antibiotic Chest x-ray on the of this month showed worsening of pneumonia Symptomatically better with normal CBC We will continue current antibiotic and add doxycycline to cover atypicals Clinically not any better Pulmonology consulted-appreciate input and recommendation Cefepime has been changed to Zosyn as per fruit dumper CO2 level has been high at 49-getting BiPAP without much improvement May need bronchoscopy as per fruit dumper Clinically and radiologically not better CO2 level has come down to 40 and ABGs improved Repeat chest x-ray shows improvement of pneumonia Continue current treatment (3) COPD exacerbation: History of COPD with ongoing smoking Will start Solu-Medrol and nebulized bronchodilator Advised to quit smoking No more cyanosis We will need to a step O2 saturation before discharge PT and OT evaluation and to a step O2 saturation tomorrow before discharge Will add Doxy as mentioned Clinically not yet have better to be discharged Requiring 4-5 l oxygen at rest and more than 5 disorder on ambulation Appreciate pulmonary input and recommendation We will put him on a patch Nocturnal pulse oximetry on 4 L of oxygen to see if he qualifies for BiPAP (4) CHF (congestive heart failure): History of diastolic heart failure with cor pulmonale No evidence of any fluid overload as of now We will hold off Lasix now No evidence of overt CHF We will continue the small dose of Lasix Has right heart failure likely secondary to cor pulmonale Has been getting Lasix We will continue small dose of Lasix (5) Hypoxia: Likely has acute and chronic respiratory failure Noted to be cyanotic in the field following coughing spell and syncope Requiring oxygen to maintain saturation Has been on home oxygen at night only May need oxygen during daytime and with exertion May need repeat to a step before discharging home DVT prophylaxis Subcu heparin CODE STATUS Discussed with the patient and he will be DNR Subjective The patient was seen and examined in presence of the son Admitted yesterday with COPD exacerbation and aspiration pneumonia with syncope secondary to bouts of cough Clinically a lot better today No shortness of breath at rest Saturation is maintained on 2 L of nasal cannula oxygen 12/29 Remains stable in bed without any symptoms of shortness of breath Denies any cough and/or sputum production No abdominal pain nausea and/or vomiting 12/30 The patient was seen and examined in telemetry unit He has been feeling a lot better Remains shortness of breath at rest He has been requiring about 5 L of nasal oxygen continuously He did very well with physical therapy and wants to go home 12/31 Moderate shortness of breath at rest Has Hazen Puffer facis CO2 was noted to be 46 this morning Not yet ready to be discharged Discussed with the brother and [id number] 01/01 Remains stable in bed with moderate shortness of breath at rest CO2 remains high at 46 Pulmonology consulted 01/02 The patient was seen and examined the medical floor Clinically he has been feeling better Gets shortness of breath on minimal exertion Was on BiPAP throughout the whole night yesterday 01/03 The patient was seen and examined in medical floor He has been not better today He looks less shortness of breath and complains to have no symptoms at all at rest No fever and/or chills Physical Exam Vital Signs (Past 24 Hours): Last Vital Signs Temp 36.8 C 01/03/19 14:46 Pulse 66 01/03/19 14:46 Resp 20 01/03/19 14:46 BP 120/67 01/03/19 14:46 Pulse Ox 90 01/03/19 14:46 Physical Exam: No apparent distress at rest Constitutional: + ill appearing and + thin Eyes: PERRL, conjunctivae normal, anicteric sclerae ENMT: external ear and nose normal, oropharynx normal Respiratory: + respiratory distress (Minimal respiratory distress at rest), + cough and + tachypneic Auscultation: + diminished lung sounds, + crackles (Minimal bibasilar crackles) and + wheezes (Bilateral-improved) Cardiovascular: Rate/Rhythm: regular rate and regular rhythm Heart Sounds: normal S1 and normal S2 Gastrointestinal (Abdomen): normal bowel sounds, soft, nontender, no hepatosplenomegaly Musculoskeletal: No acute arthritis Neurologic: Alert, awake and oriented x3. Generally very weak and Results & Data Laboratory Results BMP 01/03/19 01/03/19 10:10 11:22 Sodium 133 L Potassium 3.5 D Chloride 87 L Carbon Dioxide 40 H BUN 23 H Creatinine 0.95 Glucose 309 H Calcium 8.0 L Medications Administered Current Inpatient Medications Acetylcysteine (Mucomyst 10%) 0 ml INH BID DENNIS Stop: 02/01/19 20:59 Last Admin: 01/03/19 07:27 Dose: 1 ml Documented by: Albuterol (Duoneb) 3 ml NEB Q4R DENNIS Stop: 01/31/19 11:59 Last Admin: 01/03/19 17:55 Dose: Not Given Documented by: Aspirin (Ecotrin Ectab) 81 mg PO DAILY DENNIS Stop: 01/26/19 17:51 Last Admin: 01/03/19 08:43 Dose: 81 mg Documented by: Atenolol (Tenormin) 25 mg PO DAILY DENNIS Stop: 01/27/19 08:59 Last Admin: 01/03/19 08:44 Dose: 25 mg Documented by: Atorvastatin Calcium (Lipitor) 40 mg PO DAILY DENNIS Stop: 01/27/19 08:59 Last Admin: 01/03/19 08:43 Dose: 40 mg Documented by: Doxycycline Hyclate (Vibramycin) 100 mg PO BID DENNIS Stop: 01/06/19 12:14 Last Admin: 01/03/19 08:44 Dose: 100 mg Documented by: Fluticasone Propionate (Flovent Hfa 220mcg) 2 puffs INH BID DENNIS Stop: 01/26/19 20:59 Last Admin: 01/03/19 08:43 Dose: 2 puffs Documented by: Heparin Sodium (Porcine) (Heparin Sodium (Porcine)) 5,000 units SQ Q12 DENNIS Stop: 01/26/19 20:59 Last Admin: 01/03/19 08:44 Dose: 5,000 units Documented by: Methylprednisolone 40 mg/ (Syringe) 0.64 mls @ 1.5 mls/min IV Q8H DENNIS Stop: 01/26/19 15:59 Last Admin: 01/03/19 18:26 Dose: 1.5 mls/min Documented by: Piperacillin Sod/Tazobactam (Sod 3.375 gm/ Dextrose) 115 mls @ 28.75 mls/hr IV Q8H DENNIS Stop: 01/08/19 15:59 Last Admin: 01/03/19 16:03 Dose: 28.8 mls/hr Documented by: Furosemide 40 mg/ Syringe 4 mls @ 4 mls/min IV DAILY DENNIS Stop: 01/31/19 13:14 Last Admin: 01/03/19 08:43 Dose: 4 mls/min Documented by: Miscellaneous (Remove Nicoderm Patch) 1 ea N/A HS DENNIS Stop: 02/01/19 20:59 Last Admin: 01/02/19 20:03 Dose: 1 ea Documented by: Miscellaneous Information (Consult) 1 ea N/A UD PRN PRN Reason: Consult Stop: 01/31/19 09:28 Nicotine (Nicoderm Cq) 14 mg TD QAM DENNIS Stop: 02/01/19 14:59 Last Admin: 01/03/19 08:44 Dose: 14 mg Documented by: Polyethylene Glycol (Miralax Powder Packet) 17 gm PO DAILY PRN PRN Reason: Constipation Stop: 01/27/19 21:04 Last Admin: 12/29/18 20:24 Dose: 17 gm Documented by: (1) Syncope Syncope type: unspecified Qualified Code(s): R55 - Syncope and collapse (2) Pneumonia Laterality: left Lung location: lower lobe of lung Pneumonia type: due to unspecified organism Qualified Code(s): J18.1 - Lobar pneumonia, unspecified organism
[2019-01-04] MEDS: PIPERACILLIN/TAZOBACTAM 3.375 GM in DEXTROSE 5% 100 ML IV SCH ×4 (00:02→23:52)
[2019-01-04] MEDS: methylPREDNISolone 40 MG in SYRINGE 0 ML IV SCH ×3 (02:03→16:59)
[2019-01-04] MEDS: ALBUT/IPRATROP 3MG/0.5MG NEB 3 ML VIAL NEB SCH ×5 (03:06→18:59)
[2019-01-04 05:50] LABS: Creatinine Clr Calc Pharmacy 67.5 ml/min; Est GFR (African American) 105.2; Est GFR (Non-African American) 90.7
[2019-01-04] MEDS: ACETYLCYSTEINE 10% INHAL SOLN **DISPENSED FROM RESP. INH SCH ×2 (07:10→18:59)
[2019-01-04] MEDS: ATENOLOL 25 MG TABLET PO SCH (07:52)
[2019-01-04] MEDS: ASPIRIN 81 MG ECTAB PO SCH (07:52)
[2019-01-04] MEDS: ATORVASTATIN 40 MG TAB PO SCH (07:52)
[2019-01-04] MEDS: DOXYCYCLINE HYCLATE 100 MG CAP PO SCH ×2 (07:55→21:06)
[2019-01-04] MEDS: FLUTICASONE HFA 220 MCG INHALER INH SCH ×2 (07:55→21:06)
[2019-01-04] MEDS: NICOTINE 14 MG/24 HR PATCH TD SCH (07:55)
[2019-01-04] MEDS: FUROSEMIDE 40 MG in SYRINGE 0 ML IV SCH (07:55)
[2019-01-04] MEDS: HEPARIN SOD 5,000 UNIT/0.5 ML VIAL SQ SCH ×2 (07:57→21:09)
--- NOTE | 2019-01-04 13:00 | Progress Note ---
DATE: 01/04/2019 PULMONARY PROGRESS NOTE TIME: 12:35 p.m. SUBJECTIVE: The patient denies complaints. He is not the best historian, but he denies any problems. He did not wear his BiPAP last night. He stated that his nose was sore. I explained to him that it is very important that he wear it nightly. OBJECTIVE: GENERAL: The patient was comfortable at rest. VITAL SIGNS: Temperature is 36.8. CARDIAC: Heart rate 87. Rhythm regular. Blood pressure 144/76. LUNGS: Lung jones reveal decreased breath sounds in the left lower lobe area. This aeration is not as good as yesterday, though it is much better than a few days ago. This may not be as good because he did not wear his BiPAP. Saturation was 94% on 4 liters. Arterial blood gas done yesterday morning on 4 liters of oxygen showed a pH of 7.42 with pCO2 of 72 and pO2 of 54. The pH previously had been 7.34 and the pCO2 previously was 84. Thus, yesterday's gas was significantly better. He had a chest x-ray yesterday. There was significant improvement in the aeration to the left lower lobe compared with prior. I believe this reflects at least partial resolution of the atelectasis. There was still a small area of opacity at the left lower lobe. The patient did have an overnight pulse oximetry study last night. This was done with the patient on 4 liters of oxygen. His basal saturation was 87.8, minimum saturation 81. There was a total of 237.5 minutes less than 88% and the maximum single time less than 88 was 1756 seconds. The combination of this degree of hypoxia while wearing his oxygen and the severe elevation of pCO2 should qualify him for BiPAP at home. COMMENTS AND RECOMMENDATIONS: It is advised that a BiPAP be ordered through [facility], which is already his provider. The BiPAP should be set at 14/8, which is what we have been using here. This needs to be ordered with heated humidity. One needs to indicate a mask of choice. One would need to add on BiPAP supplies as needed with length of need 99 months. The patient is approaching time when it will be safe for discharge. I will discuss with Dr. Morrison. Suggest changing to prednisone. He probably needs 2 more days of antibiotics. The patient should have a followup with myself in the office. Would arrange this for 2 months. That works well with the BiPAP timing. He lives approximately 1[place]/2 hours away from here. He will need to follow up with his family doctor as well at [facility]. Thus, he really would need to be coming excessively. Thus, I think he is acceptable to not be seen in pulmonary until 2 months. He should be encouraged to use his nebulizer treatments regularly at home as he is getting here. Would change him to DuoNeb rather than plain albuterol.
--- NOTE | 2019-01-04 20:05 | Hospitalist Progress Note ---
Date of Service January 04, 2019 Assessment & Plan (1) Syncope: per Dr. Morrison's notes Likely secondary to bouts of cough following aspiration while drinking coffee Likely Post tussive syncope or Cough Syncope We will admit to telemetry unit Rule out possible causes of syncope including arrhythmia and/or carotid stenosis Doubt any seizure activity Carotid ultrasound did not show any significant stenosis Echo: Right ventricle is severely dilated, right ventricle systolic function is severely reduced, flattened septum is considered with RV pressure/volume overload, right atrium is severely dilated, left ventricular cavity is small with EF of more than 70%, left atrium is a small, mild to moderate tricuspid regurgitation and pulmonary hypertension No more syncopal episode No more syncope in the hospital, did not have any arrhythmias while on telemetry unit and equal did show increased right atrium and right ventricular size compatible with cor pulmonale - no recurrence since admission (2) Pneumonia: Multilobar pneumonia Seems to be secondary to aspiration Could be community-acquired as well Cefepime was started in the emergency room and will continue Like to change to oral Augmentin on discharge improving continue Zosyn, Doxycycline (3) COPD exacerbation: continue Nebs, Solumedrol continue Bipap (4) CHF (congestive heart failure): continue Lasix (5) Hypoxia: Likely has acute and chronic respiratory failure Noted to be cyanotic in the field following coughing spell and syncope Requiring oxygen to maintain saturation Has been on home oxygen at night only May need oxygen during daytime and with exertion DVT prophylaxis Subcu heparin CODE STATUS Discussed with the patient and he will be DNR Subjective resting in bed, comfortable states breathing continues to improve has intermittent cough no chest pain denies other symptoms Physical Exam Vital Signs (Past 24 Hours): Last Vital Signs Temp 37.1 C 01/04/19 14:58 Pulse 84 01/04/19 18:59 Resp 18 01/04/19 18:59 BP 102/60 01/04/19 14:58 Pulse Ox 92 01/04/19 18:59 Physical Exam: General- oriented x 3, not in distress, speaks in sentences with no effort or accessory muscle use Eyes- anicteric Neck- no JVD Lungs- distant BS, no wheezing Heart- normal rate, regular rhythm; no murmurs Abdomen- normal bowel sounds, nondistended, soft, nontender Extremities- no pretibial edema, no calf tenderness Neuro- alert, oriented x 3; no gross focal neurologic deficits Skin- warm & dry Results & Data Laboratory Results Laboratory Results - last 24 hr 01/04/19 05:10 Creatinine 0.73 Est Cr Clr Drug Dosing 67.5 Est GFR ( Amer) 105.2 Est GFR (Non-Af Amer) 90.7 (1) Syncope Syncope type: unspecified Qualified Code(s): R55 - Syncope and collapse (2) Pneumonia Laterality: left Lung location: lower lobe of lung Pneumonia type: due to unspecified organism Qualified Code(s): J18.1 - Lobar pneumonia, unspecified organism
[2019-01-05] MEDS: ALBUT/IPRATROP 3MG/0.5MG NEB 3 ML VIAL NEB SCH ×5 (00:35→15:11)
[2019-01-05] MEDS: methylPREDNISolone 40 MG in SYRINGE 0 ML IV SCH ×2 (01:47→15:46)
[2019-01-05 05:57] LABS: Hematocrit (blood only) 50.6 % (42-52); Hemoglobin 16.4 g/dL (14.0-18.0); Mean Corpuscular Hgb Conc 32.4 g/dL (32-36); Mean Corpuscular Volume 102.4 fL (80-100); RDW Standard Deviation 56.6 fL (36.4-46.3); Red Blood Count 4.94 M/uL (4.7-6.1); White Blood Count 12.81 K/uL (4.8-10.8)
[2019-01-05 06:24] LABS: Est GFR (African American) 92.7
[2019-01-05 06:25] LABS: Mean Platelet Volume 11.3 fL (7.4-10.4); Platelet Count 99 K/uL (130-400)
[2019-01-05] MEDS: ACETYLCYSTEINE 10% INHAL SOLN **DISPENSED FROM RESP. INH SCH (07:15)
[2019-01-05] MEDS: PIPERACILLIN/TAZOBACTAM 3.375 GM in DEXTROSE 5% 100 ML IV SCH (07:49)
[2019-01-05] MEDS: NICOTINE 14 MG/24 HR PATCH TD SCH (07:51)
[2019-01-05] MEDS: FLUTICASONE HFA 220 MCG INHALER INH SCH (07:52)
[2019-01-05] MEDS: DOXYCYCLINE HYCLATE 100 MG CAP PO SCH (07:52)
[2019-01-05] MEDS: ATORVASTATIN 40 MG TAB PO SCH (07:52)
[2019-01-05] MEDS: ASPIRIN 81 MG ECTAB PO SCH (07:52)
[2019-01-05] MEDS: ATENOLOL 25 MG TABLET PO SCH (07:52)
[2019-01-05] MEDS: HEPARIN SOD 5,000 UNIT/0.5 ML VIAL SQ SCH (07:59)
[2019-01-05] MEDS: FUROSEMIDE 40 MG in SYRINGE 0 ML IV SCH (08:21)
--- NOTE | 2019-01-05 10:57 | XRay Report ---
XR chest 2V routine HISTORY: 73 years-old Male f/u on infiltrates acute shortness of breath with bilateral lung opacitie s COMPARISON: Chest radiograph 01/03/2019, CTA chest 12/27/2018. TECHNIQUE: PA and lateral views of the chest FINDINGS: Cardiac silhouette is mildly enlarged, unchanged. Emphysema with areas of chronic interstitial coarse maria redemonstrated. Perihilar with left greater than right bibasilar opacities redemonstrated. There is improved aeration of the left lung base from comparison. Blunting of the costophrenic angles is u nchanged. No pneumothorax or overt pulmonary edema. Lungs are hyperinflated with diaphragmatic flatte maria. Degenerative changes of the shoulders and spine. IMPRESSION: 1. Persistent perihilar and left greater than right bibasilar airspace opacities with improved aerati on of the left lung base. 2. Cardiomegaly without overt pulmonary edema. 3. Emphysema. The above report was generated using voice recognition software. It may contain grammatical, syntax o r spelling errors. Electronically signed by: Gerardo Del Rosario M.D. 01/05/2019 10:55 AM
--- NOTE | 2019-01-05 11:06 | Progress Note ---
DATE: 01/05/2019 TIME: 10:00 a.m. SUBJECTIVE: The patient denies complaints. He did wear BiPAP overnight. Nursing reports that he walked pretty well yesterday with physical therapy. The patient is very anxious for discharge. He admits to coughing up some white sputum. OBJECTIVE: GENERAL: The patient appeared comfortable. VITAL SIGNS: Temperature is 36.8. Heart rate 73 per minute. Rhythm regular. Blood pressure 148/72. LUNGS: Lung jones revealed mild rhonchi bilaterally. Breath sounds are slightly decreased on the left compared with the right. The last recorded saturation was 90%. I tried to check on his pulse ox, but was unable to have the pulse ox record. I believe this may be in part related to his circulation. Nursing reports that they sometimes have to try multiple pulse oximetries to get a good wave flow. EXTREMITIES: Showed no edema. LABORATORY DATA: White count today was 12.81, this was an increase from yesterday at 7.8. The etiology for that is not clear. This is actually the highest he has been in the hospital. Hemoglobin is 16.4. Creatinine today is 0.93. IMPRESSION: 1. Respiratory failure ? acute on chronic with hypoxia and hypercarbia. 2. Bilateral pneumonia. 3. Bullous emphysema. 4. Pulmonary hypertension. 5. Atelectasis. COMMENTS AND RECOMMENDATIONS: The patient in general is much better than earlier in his hospital stay. He sounds mildly congested on exam, but he has been in bed. They have not gotten him ambulated. The patient's white count is elevated. He has remained on IV steroids. Would change to prednisone 40 mg daily with a slow taper. I spoke with the patient about the need to wear his BiPAP nightly. Attempts are being made to get a BiPAP through [facility]. I am going to do an x-ray for soon in light of the elevated white count just to be sure he has not had new areas of infiltrates. If he is well as the day progresses and if his x-ray is no worse, he should be acceptable for discharge. The patient will need a lot of encouragement to continue using his nebulizer treatments on a regular basis 4 times per day.
--- NOTE | 2019-01-05 15:22 | Hospitalist Progress Note ---
Date of Service January 05, 2019 Assessment & Plan (1) Syncope: per Dr. Morrison's notes Likely secondary to bouts of cough following aspiration while drinking coffee Likely Post tussive syncope or Cough Syncope We will admit to telemetry unit Rule out possible causes of syncope including arrhythmia and/or carotid stenosis Doubt any seizure activity Carotid ultrasound did not show any significant stenosis Echo: Right ventricle is severely dilated, right ventricle systolic function is severely reduced, flattened septum is considered with RV pressure/volume overload, right atrium is severely dilated, left ventricular cavity is small with EF of more than 70%, left atrium is a small, mild to moderate tricuspid regurgitation and pulmonary hypertension No more syncopal episode No more syncope in the hospital, did not have any arrhythmias while on telemetry unit and equal did show increased right atrium and right ventricular size compatible with cor pulmonale - no recurrence since admission (2) Pneumonia: Multilobar pneumonia Seems to be secondary to aspiration Could be community-acquired as well Cefepime was started in the emergency room and will continue -- will need 2 more days of Augmentin and Doxycycline PO to complete 1 week course (3) COPD exacerbation: cleared for d/c home by Pulm continue Prednisone taper, Nebs QID, antibiotics as noted above (4) CHF (congestive heart failure): continue Lasix (5) Hypoxia: Likely has acute and chronic respiratory failure Noted to be cyanotic in the field following coughing spell and syncope Requiring oxygen to maintain saturation continue oxygen 24/ DVT prophylaxis Subcu heparin CODE STATUS Discussed with the patient and he will be DNR d/c home today ff up with PCP in 3-5 days scheduling office closed today,patient will be called for appointment soon ff up with Pulm Dr. Pepper in 2 months Subjective ff up for COPD exacerbation seen resting in bed, comfortable states breathing is fine, no cough no other symptoms states she is ready and would like to be discharged today Physical Exam Vital Signs (Past 24 Hours): Last Vital Signs Temp 36.8 C 01/05/19 07:33 Pulse 59 L 01/05/19 15:13 Resp 17 01/05/19 15:13 BP 148/72 H 01/05/19 07:33 Pulse Ox 90 01/05/19 15:13 Physical Exam: General- oriented x 3, not in distress, speaks in sentences with no effort or accessory muscle use Eyes- anicteric Neck- no JVD Lungs- distant but clear breath sounds bilaterally Heart- normal rate, regular rhythm; no murmurs Abdomen- normal bowel sounds, nondistended, soft, nontender Extremities- no pretibial edema, no calf tenderness Neuro- alert, oriented x 3; no gross focal neurologic deficits Skin- warm & dry (1) Syncope Syncope type: unspecified Qualified Code(s): R55 - Syncope and collapse (2) Pneumonia Laterality: left Lung location: lower lobe of lung Pneumonia type: due to unspecified organism Qualified Code(s): J18.1 - Lobar pneumonia, unspecified organism
--- NOTE | 2019-01-05 15:47 | Discharge Summary ---
Date of Service January 05, 2019 Admission HPI Per Admitting Provider Is a 73-year-old male with significant past medical history including severe COPD on home oxygen at night, history of right-sided heart failure with cor pulmonale, chronic hypoxic respiratory failure, tobacco use disorder and history of abdominal aortic aneurysm apparently has had syncope and collapsed while he was [place]. He denies any recent cough or increasing shortness of breath, no recent history of fever and no chills and did not have any chest pain and/or palpitation before the episode. He denied to have any blurred vision, any numbness or tingling or any weakness involving any side of the body before the episode as well. He went hunting and while he was drinking coffee he started to have bouts of cough and following that passed out. No seizure activity reported but he peed during the process. He was out for about 1-2 minutes when he was brought into the ER by ambulance. He was cyanotic to begin with with low blood pressure but the color normalized with administr ation of oxygen. In the ER is still hypoxic and relieving test showed that he has left mid and lower lobe pneumonia with mildly mildly elevated troponin. He did not have any pulmonary embolism. He was admitted to telemetry unit for continuation of care. Admission Exam Per Admitting Provider Vital Signs (Past 24 Hours): Last Vital Signs Temp 36.5 C 12/27/18 13:15 Pulse 58 L 12/27/18 15:30 Resp 26 H 12/27/18 15:30 BP 111/64 12/27/18 15:30 Pulse Ox 99 12/27/18 15:30 Physical Exam: Moderate shortness of breath at rest Constitutional: + acute distress (Shortness of breath), + ill appearing and + thin Eyes: PERRL, conjunctivae normal, anicteric sclerae ENMT: external ear and nose normal, oropharynx normal Respiratory: + respiratory distress (Moderate respiratory distress), + uses accessory muscles, + cough and + tachypneic Auscultation: + diminished lung sounds and + wheezes (Bilateral) Cardiovascular: Rate/Rhythm: regular rate and regular rhythm Heart Sounds: normal S1 and normal S2 Gastrointestinal (Abdomen): normal bowel sounds, soft, nontender, no hepatosplenomegaly Neurologic: Alert, awake and oriented x3. Generally weak but no focal sensory and motor deficit appreciated Principal Diagnosis COPD EXACERBATION Discharge Exam Vital Signs (Past 24 Hours): Last Vital Signs Temp 36.8 C 01/05/19 07:33 Pulse 59 L 01/05/19 15:13 Resp 17 01/05/19 15:13 BP 148/72 H 01/05/19 07:33 Pulse Ox 90 01/05/19 15:13 Physical Exam: General- oriented x 3, not in distress, speaks in sentences with no effort or accessory muscle use Eyes- anicteric Neck- no JVD Lungs- distant but clear breath sounds bilaterally Heart- normal rate, regular rhythm; no murmurs Abdomen- normal bowel sounds, nondistended, soft, nontender Extremities- no pretibial edema, no calf tenderness Neuro- alert, oriented x 3; no gross focal neurologic deficits Skin- warm & dry Discharge Data Allergies Allergy/AdvReac Type Severity Reaction Status Date / Time No Known Drug Allergies Allergy Unknown NONE Unverified 12/27/18 14:32 Consultations 01/01/19 07:41 Consult Pulmonology Routine Ordered Studies 12/27/18 13:31 CT angio chest PE protocol Stat IMPRESSION: 1. No pulmonary emboli identified although segmental and subsegmental pulmonary arteries suboptimally assessed due to respiratory motion. 2. Consolidation within the left upper and lower lobes which favors multifocal pneumonia. A follow-up chest CT in one month to ensure resolution is recommended. A few additional airspace opacities within the right lung are also likely infectious. 3. Mild interstitial pulmonary edema. 4. Moderate cardiomegaly with preferential dilatation of the right atrium and right ventricle and dilatation of the main pulmonary artery which suggests pulmonary arterial hypertension with elevated right heart pressures. 5. Moderate emphysema. 12/27/18 16:11 US carotid doppler BI Stat IMPRESSION: Moderate atherosclerotic plaque without evidence of a hemodynamically significant stenosis. Hospital Course (1) Syncope: per Dr. Morrison's notes Likely secondary to bouts of cough following aspiration while drinking coffee Likely Post tussive syncope or Cough Syncope Carotid ultrasound did not show any significant stenosis Echo: Right ventricle is severely dilated, right ventricle systolic function is severely reduced, flattened septum is considered with RV pressure/volume overload, right atrium is severely dilated, left ventricular cavity is small with EF of more than 70%, left atrium is a small, mild to moderate tricuspid regurgitation and pulmonary hypertension No more syncope in the hospital, did not have any arrhythmias while on telemetry unit and equal did show increased right atrium and right ventricular size compatible with cor pulmonale - no recurrence since admission (2) Pneumonia: Multilobar pneumonia Seems to be secondary to aspiration Could be community-acquired as well Cefepime given -- will need 2 more days of Augmentin and Doxycycline PO to complete 1 week course (3) COPD exacerbation: cleared for d/c home by Pulm continue Prednisone taper, Nebs QID, antibiotics as noted above (4) CHF (congestive heart failure): continue Lasix (5) Hypoxia: Likely has acute and chronic respiratory failure Noted to be cyanotic in the field following coughing spell and syncope Requiring oxygen to maintain saturation continue oxygen 24/ DVT prophylaxis Subcu heparin CODE STATUS Discussed with the patient - DNR d/c home today ff up with PCP in 3-5 days scheduling office closed today,patient will be called for appointment soon ff up with Pulm Dr. Back in 2 months Total Time Total Time Spent Total Time Spent (In Minutes): 35 minutes Discharge Plan Discharge Items Patient Disposition: Home - Self-Care Reason For Visit: SYNCOPE,PNEUMONIA Discharge Diagnosis: COPD EXACERBATION Discharge Goals: Diagnostic testing and Therapeutic intervention Activity: As commented below Activity Comment: NO HEAVY EXERTION Lifting: Wait until after follow-up appointment Exercise/Sports: Wait until after follow-up appointment Driving/Machine Use Comment: NO DRIVING Non-emergency contact: Primary Care Provider Call non-emergency contact if: you have any medication questions, your symptoms worsen and you have a fever Follow-up/Referrals: Zane Back DO [Physician] - Ralph Leyva MD [Primary Care Provider] - Diet: Heart Healthy Addtl Provider Instructions: PLEASE FOLLOW UP WITH PRIMARY CARE PHYSICIAN IN 3-5 DAYS. THE CLINIC WILL CALL YOU FOR THE APPOINTMENT. FOLLOW UP WITH DR. ZANE BACK LUNG SPECIALIST IN 2 MONTHS. PLEASE CALL HIS OFFICE FOR THE APPOINTMENT. CONTACT INFORMATION OUTLINED ABOVE. PLEASE REVIEW YOUR NEW MEDICATION LIST AND FOLLOW INSTRUCTIONS CAREFULLY. CALL PRIMARY CARE PHYSICIAN OR RETURN TO ER IMMEDIATELY IF WITH WORSENING OF SYMPTOMS. Prescriptions: New ipratropium-albuterol 0.5 mg-3 mg(2.5 mg base)/3 mL Solution For Nebulization 3 ml NEB QID 10 Days Qty: 180 RF: 1 nicotine [Nicoderm CQ] 14 mg/24 hr Patch 24 Hour 14 mg transdermal QAM 7 Days Qty: 7 RF: 0 prednisone 10 mg tablet 10 mg PO UD Qty: 31 RF: 0 Continued furosemide 40 mg tablet 40 mg PO DAILY RF: 0 atorvastatin 40 mg tablet 40 mg PO DAILY RF: 0 atenolol 25 mg tablet 25 mg PO DAILY RF: 0 aspirin [Aspirin Low Dose] 81 mg Tablet,Delayed Release (Dr/Ec) 81 mg PO DAILY RF: 0 Stand-Alone Forms: [facility] Discharge Orders: Discharge Order (Routine); Ordered 01/05/19 Ordered By: Didier Moss Admission Data Admit Date/Time: 12/27/18 16:05 Attending Provider: Didire Moss Admit Provider: Beverly Morrison Primary Care Provider: Ralph Leyva Other Providers: Zane Back Service: Medical Other Interventions: Discharge Summary Assessment (RN) Last Done: 01/05/19 16:06 DC Date/Time DO NOT enter until pt leaves facility: 01/05/19 16:49
[2019-01-05] MEDS ORDERED: predniSONE 20 MG TAB PO STA (15:49)
[2019-01-05] MEDS ORDERED: ALBUT/IPRATROP 3MG/0.5MG NEB 3 ML VIAL NEB SCH ×2 (16:00→16:15)
[2019-01-06] MEDS ORDERED: predniSONE 20 MG TAB PO SCH (09:00)
== END 2019-01-05 16:49 | disposition home or self-care (01) | DRG 177 ==
LOC: ED 13:06 → SUATTDRO 16:05 → 2S 16:05 → 4E 12-30 13:14
DX: J96.21 Acute and chronic respiratory failure with hypoxia; J43.9 Emphysema, unspecified; J98.11 Atelectasis; Z99.81 Dependence on supplemental oxygen; Z79.899 Other long term (current) drug therapy; I27.29 Other secondary pulmonary hypertension; Z66 Do not resuscitate; J96.22 Acute and chronic respiratory failure with hypercapnia; J69.0 Pneumonitis due to inhalation of food and vomit; I27.81 Cor pulmonale (chronic); J96.11 Chronic respiratory failure with hypoxia; Z79.82 Long term (current) use of aspirin; F17.200 Nicotine dependence, unspecified, uncomplicated; R55 Syncope and collapse